=== PATIENT | female | born 1955 | race Caucasian/White ===

== ENCOUNTER → 2023-03-06 08:17 | Outpatient (BNVA) | payer MEDICARE, SELFPAY | PROVIDERS: PCP Internal Medicine; Visit Provider Internal Medicine Rheumatology | DX: M33.90 Dermatopolymyositis, unspecified, organ involvement unspecified (principal); Z79.899 Other long term (current) drug therapy | CPT/HCPCS: 36415; 82550; 85025; 85652; 86140; 99212 ==

== ENCOUNTER 2023-03-06 09:08 | Outpatient (REF) | payer MEDICARE, SELFPAY ==
[2023-03-06 11:01] LABS: MANUAL DIFF FLAG NO
[2023-03-06 11:08] LABS: Basophils Absolute Auto 0.1 X10*3/uL (0.0-0.2); Basophils Percent Auto 0.9 % (0-2); Eosinophils Absolute Auto 0.1 X10*3/uL (0.0-0.4); Eosinophils Percent Auto 1.6 % (0-4); Hematocrit 36.4 % (37.0-47.0); Hemoglobin 11.8 g/dl (12.0-16.0); Imm Gran Abs Auto 0.02 X10*3/uL (0.00-0.03); Imm Gran Pct Auto 0.3 % (0.0-0.4); Lymphocytes Absolute Auto 1.5 X10*3/uL (1.2-4.9); Lymphocytes Percent Auto 23.7 % (20-40); Mean Corpuscular HGB Conc 32.4 g/dl (31.0-35.0); Mean Corpuscular Hemoglobin 28.4 pg (27.0-33.0); Mean Corpuscular Volume 87.5 fL (80.0-98.0); Mean Platelet Volume 10.5 fL (9.4-12.3); Monocytes Absolute Auto 0.5 X10*3/uL (0.1-1.2); Monocytes Percent Auto 7.9 % (2-11); Neutrophils Absolute Auto 4.1 x10*3/uL (2.0-8.3); Neutrophils Percent Auto 65.6 % (45-73); Platelet Count 384 X10*3/uL (160-400); Red Blood Count 4.16 X10*6/uL (4.20-5.50); White Blood Count 6.3 X10*3/uL (4.8-10.8)
[2023-03-06 11:52] LABS: Erythrocyte Sedimentation Rate 27 MM/HR (0-20)
[2023-03-06 12:08] LABS: C Reactive Protein 0.16 mg/dL (< or = 0.50)
== END 2023-03-06 09:09 | disposition home or self-care (01) ==
LOC: HO.10HDL 09:08
PROVIDERS: Visit Provider Internal Medicine Rheumatology
DX: Z13.89 Encounter for screening for other disorder (principal)
CPT/HCPCS: 36415; 82550; 85025; 85652; 86140

== ENCOUNTER 2023-03-20 11:26 | Outpatient (REF) | payer MEDICARE, SELFPAY | END 2023-03-20 11:27 | disposition home or self-care (01) | LOC: HO.MDS 11:26 | PROVIDERS: Visit Provider Internal Medicine Rheumatology | DX: M33.90 Dermatopolymyositis, unspecified, organ involvement unspecified (principal) | CPT/HCPCS: 96365; 96366; J1569 ==

== ENCOUNTER 2023-03-21 11:36 | Outpatient (REF) | payer MEDICARE, SELFPAY | END 2023-03-21 11:37 | disposition home or self-care (01) | LOC: HO.MDS 11:36 | PROVIDERS: Visit Provider Internal Medicine Rheumatology | DX: M33.90 Dermatopolymyositis, unspecified, organ involvement unspecified (principal) | CPT/HCPCS: 96365; 96366; J1569 ==

== ENCOUNTER 2023-04-18 09:41 | Outpatient (REF) | payer MEDICARE, SELFPAY | END 2023-04-18 09:42 | disposition home or self-care (01) | LOC: HO.MDS 09:41 | PROVIDERS: Visit Provider Internal Medicine Rheumatology | DX: M33.90 Dermatopolymyositis, unspecified, organ involvement unspecified (principal) | CPT/HCPCS: 96365; 96366; J1569 ==

== ENCOUNTER 2023-04-19 09:40 | Outpatient (REF) | payer MEDICARE, SELFPAY | END 2023-04-19 09:41 | disposition home or self-care (01) | LOC: HO.MDS 09:40 | PROVIDERS: Visit Provider Internal Medicine Rheumatology | DX: M33.90 Dermatopolymyositis, unspecified, organ involvement unspecified (principal) | CPT/HCPCS: 96365; 96366; J1569 ==

== ENCOUNTER 2023-05-01 11:40 | Outpatient (AMB) | payer MEDICARE, SELFPAY ==
--- NOTE | 2023-05-01 11:42 | MHC.OFFVIS ---
Intake Vital Signs 05/01/23 11:43 Height 5 ft 5 in Weight 190 lb 4.143 oz BMI 31.7 BP 132/98 H Blood Pressure Location Rt brachial Position Sitting Intake Visit Reasons: DM - Confirmed Intake Note: Patient presents for follow up Allergies azathioprine Adverse Reaction (Intermediate, Verified 05/01/23 11:45) Unknown ciprofloxacin [From Cipro HC] Adverse Reaction (Intermediate, Verified 05/01/23 11:45) N/V doxycycline Adverse Reaction (Intermediate, Verified 05/01/23 11:45) Gastrointestinal Upset hydrocortisone [From Cipro HC] Adverse Reaction (Intermediate, Verified 05/01/23 11:45) N/V mycophenolate mofetil [From CellCept] Adverse Reaction (Intermediate, Verified 05/01/23 11:45) Rash Penicillins Adverse Reaction (Intermediate, Verified 05/01/23 11:45) Rash sulfamethoxazole [From Bactrim] Adverse Reaction (Verified 05/01/23 11:45) N/V trimethoprim [From Bactrim] Adverse Reaction (Verified 05/01/23 11:45) N/V HPI HPI Comments History of Present Illness Details The patient returns for 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 She remains on IVIG receiving 50 g on 2 consecutive days once every 4 weeks. She reports no change in her muscle strength. She still has some difficulty getting up out of a chair but other activities seem to be without problem. She has had no recent skin rash. She does feel somewhat tired the week after getting the infusions. She said they did have some difficulty obtaining IV access at her last visit. 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 Obesity Primary open angle glaucoma of both eyes Varicose veins of both lower extremities Surgical History H/O colonoscopy H/O nasal septoplasty H/O tubal ligation H/O: hysterectomy History of partial surgical removal of colon History of tonsillectomy History of total knee replacement (TKR) Family History Mother Arthritis Hypertension Elevated cholesterol Brother Elevated cholesterol Myelofibrosis Diabetes Father Stomach cancer Maternal Aunt Gynecologic cancer Social History Household Members: Spouse and Children Alcohol intake: current Alcohol intake frequency: holidays/special occasions only Patient Tobacco Use Status: Former Tobacco user Current occupational status: employed 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 Negative for appetite change, weight change, fever, chills, malaise Eyes Details: Some dull headache after the IVIG. Negative for vision change, dry eyes and dizziness Card Details: Negative chest pain, edema and syncope Resp Details: Negative for SOB, cough and wheezing Skin/Breast Details: Negative for itching, rash, hives, Raynaud's symptoms, sun sensitivity, and skin cancer Troy/Lymph Details: Negative for excessive bruising or bleeding. Physical Exam Vital Signs: Last Vital Signs BP 132/98 H 05/01/23 11:43 BMI result Body Mass Index 31.7 APPEARANCE: Patient in no acute distress EYES no redness, pupils equal and reactive to light, eyelids normal EXTREMITIES: No edema, no calf tenderness, normal peripheral pulses. NEURO:? Oriented and alert x3.? She has trouble rising from a chair without assisting herself with her upper extremities.? However there is some anterior knee pain with this motion.? Reflexes symmetric.? Gait normal. SKIN:? No inflammatory or neoplastic lesions.? Normal color and turgor JOINT EXAM: Well-healed anterior scars in her knees.? No surrounding area of tenderness or redness or swelling in the knees.? Other joints have normal pain-free range of motion without tenderness or swelling.? ? Results Reviewed Results Reviewed: Laboratory Tests 03/06/23 03/06/23 03/06/23 09:12 09:12 09:12 WBC 6.3 Hgb 11.8 L ESR 27 H Total Creatine Kinase 112 C-Reactive Protein 0.16 Assessment & Plan Assessment & Plan (1) shelter current use of immunosuppressive drug: Code(s): Z79.899 - Other jail (current) drug therapy (2) History of bilateral knee replacement: Code(s): Z96.653 - Presence of artificial knee joint, bilateral (3) Dermatomyositis: Comment: Skin rash onset 09/2016; muscles weak 09/2017. HATTIE positive; anti-GA-2 positive. EMG positive for myopathy Negative anti DNA, anti-TONY, Sjogren antibodies Prednisone started 02/14; azathioprine added in 03/17 Azathioprine held due to oral ulcers 04/16 CPK normalized, 04/16 Mycophenolate not tolerated 08/17 Methotrexate started 09/16 -partial response, still requiring ~ 15-20 mg prednisone. IVI/19, 04/17, 05/18, 06/18:07/18, 50 gm daily X 3) 08/18, 09/17(50 gm daily X 2) and every 30 days Methotrexate held due to LFT elevations - 02/16 - monthly IVIG continued December 2020: IVIG held because she had an abdominal abscess. Subsequent rise in CPK to greater than 9000 and return of weakness. January 2021: IVIG restarted as well as prednisone Code(s): M33.90 - Dermatopolymyositis, unspecified, organ involvement unspecified Plan So the patient seems to be doing okay. There is no skin rash. She still has some weakness in quadriceps extension but some of that is related to previous knee OA and atrophy. I think she should be encouraged to do quadriceps exercises; they were reviewed here in the office. The CPKs remain normal. She has some fatigue and headache after the IVIG. At this point I think it be reasonable that after the next infusion in a few weeks we increase the time in became infusions to 5 weeks. I will see her back after the infusion in May. Coding Level of Care Code Est Pt Level 3 (16993) Diagnoses shelter current use of immunosuppressive drug Z79.899 History of bilateral knee replacement Z96.653 Dermatomyositis M33.90
[2023-05-01 11:43] VITALS: BP 132/98; BMI 31.7
== END 2023-05-01 12:04 | disposition home or self-care (01) ==
PROVIDERS: PCP Internal Medicine; Visit Provider Internal Medicine Rheumatology
DX: Z79.899 Other long term (current) drug therapy (principal); Z96.653 Presence of artificial knee joint, bilateral; M33.90 Dermatopolymyositis, unspecified, organ involvement unspecified
CPT/HCPCS: 99213

== ENCOUNTER → 2023-05-01 11:40 | Outpatient (BNVA) | payer MEDICARE, SELFPAY | PROVIDERS: PCP Internal Medicine; Visit Provider Internal Medicine Rheumatology | DX: M33.90 Dermatopolymyositis, unspecified, organ involvement unspecified (principal); Z96.653 Presence of artificial knee joint, bilateral; Z79.899 Other long term (current) drug therapy | CPT/HCPCS: 99212 ==

== ENCOUNTER 2023-05-20 08:08 | Outpatient (REF) | payer MEDICARE, SELFPAY | END 2023-05-20 08:09 | disposition home or self-care (01) | LOC: HO.MDS 08:08 | PROVIDERS: Visit Provider Internal Medicine Rheumatology | DX: M33.90 Dermatopolymyositis, unspecified, organ involvement unspecified (principal) | CPT/HCPCS: 96365; 96366; J1569 ==

== ENCOUNTER 2023-05-22 09:10 | Outpatient (REF) | payer MEDICARE, SELFPAY | END 2023-05-22 09:11 | disposition home or self-care (01) | LOC: HO.MDS 09:10 | PROVIDERS: Visit Provider Internal Medicine Rheumatology | DX: M33.90 Dermatopolymyositis, unspecified, organ involvement unspecified (principal) | CPT/HCPCS: 96365; 96366; 96375; J1569 ==

== ENCOUNTER 2023-06-19 07:47 | Outpatient (REF) | payer MEDICARE, SELFPAY | END 2023-06-19 07:48 | disposition home or self-care (01) | LOC: HO.MDS 07:47 | PROVIDERS: Visit Provider Internal Medicine Rheumatology | DX: M33.90 Dermatopolymyositis, unspecified, organ involvement unspecified (principal) | CPT/HCPCS: 96365; 96366; J1569 ==

== ENCOUNTER 2023-06-20 07:51 | Outpatient (REF) | payer MEDICARE, SELFPAY | END 2023-06-20 07:52 | disposition home or self-care (01) | LOC: HO.MDS 07:51 | PROVIDERS: Visit Provider Internal Medicine Rheumatology | DX: M33.90 Dermatopolymyositis, unspecified, organ involvement unspecified (principal) | CPT/HCPCS: 96365; 96366; J1569 ==

== ENCOUNTER 2023-07-17 09:52 | Outpatient (AMB) | payer MEDICARE, SELFPAY ==
--- NOTE | 2023-07-17 10:17 | MHC.OFFVIS ---
Intake Vital Signs 07/17/23 10:18 Height 5 ft 5 in Weight 191 lb 5.78 oz BMI 31.8 BP 110/82 Blood Pressure Location Lt brachial Position Sitting Pulse 71 Pulse Source Pulse Oximeter Temp 97.5 F Temp Source Skin Pulse Oximetry (%) 97 Oxygen Delivery Method Room Air Intake Visit Reasons: DM Intake Note: Patient presents today to follow up on Dermatopolymyiositis. Reports excessive bleeding after tooth extraction about 3 weeks ago. 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 Accompanied by: Self / Same As Patient Allergies azathioprine Adverse Reaction (Intermediate, Verified 07/17/23 10:18) Unknown ciprofloxacin [From Cipro HC] Adverse Reaction (Intermediate, Verified 07/17/23 10:18) N/V doxycycline Adverse Reaction (Intermediate, Verified 07/17/23 10:18) Gastrointestinal Upset hydrocortisone [From Cipro HC] Adverse Reaction (Intermediate, Verified 07/17/23 10:18) N/V mycophenolate mofetil [From CellCept] Adverse Reaction (Intermediate, Verified 07/17/23 10:18) Rash Penicillins Adverse Reaction (Intermediate, Verified 07/17/23 10:18) Rash sulfamethoxazole [From Bactrim] Adverse Reaction (Verified 07/17/23 10:18) N/V trimethoprim [From Bactrim] Adverse Reaction (Verified 07/17/23 10:18) N/V Medication List - Last Reconciled 07/17/23 by Shaan Oakley MD acetaminophen (Tylenol Extra Strength) 500 mg PO Q6H PRN acetaminophen 650 mg (2 x 325 mg) PO ONCE PRN atenolol 75 mg PO DAILY clindamycin HCl 150 mg PO QID diphenhydramine HCl (Allergy Relief (diphenhydramine)) 50 mg (2 x 25 mg) PO ONCE PRN fluoxetine 10 mg PO DAILY hydrochlorothiazide 25 mg PO DAILY immun glob G(IgG)-gly-IgA ov50 10 % (Gammagard Liquid) Give 40 g IV daily x 2 and then repeat every 4 weeks. 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 She remains on IVIG, receiving 40 g on 2 consecutive days about every 4 weeks. The last visit was complicated a bit by some elevated blood pressures. She also thinks that the infusion might have leaked a bit and she did not all get in her. In any case muscle strength has been stable. She still has some weakness getting up from a chair. There is knee pain where she had her knee replacements. There has been no skin rash, shortness of breath or dysphagia. She does not seem to have any upper extremity weakness. 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 The patient notices a pigmented spot on dorsum of her right hand. This seems to be growing in size. [facility] Medical History Allergic rhinitis Anxiety Depression Dermatomyositis Diverticulitis DJD (degenerative joint disease) GERD (gastroesophageal reflux disease) Hyperlipidemia Hypertension longterm current use of immunosuppressive drug Obesity Primary open angle glaucoma of both eyes Varicose veins of both lower extremities Surgical History History of total knee replacement (TKR) H/O nasal septoplasty History of partial surgical removal of colon H/O tubal ligation H/O: hysterectomy History of tonsillectomy H/O colonoscopy Family History Mother Arthritis Hypertension Elevated cholesterol Brother Elevated cholesterol Myelofibrosis Diabetes Father Stomach cancer Maternal Aunt Gynecologic cancer Social History Household Members: Spouse and Children Alcohol intake: current Alcohol intake frequency: holidays/special occasions only Patient Tobacco Use Status: Former Tobacco user Current occupational status: employed 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 Card Details: Negative chest pain, edema and syncope Resp Details: Negative for SOB, cough and wheezing GI Details: Negative indigestion/heartburn, nausea, abdominal pain, bowel changes, diarrhea, constipation and bloody stool. Skin/Breast Details: Negative for itching, rash, hives, Raynaud's symptoms, sun sensitivity, and skin cancer Endo Details: Negative for polyuria and polydypsia Troy/Lymph Details: Negative for excessive bruising or bleeding. Physical Exam Vital Signs: Last Vital Signs Temp 97.5 F 07/17/23 10:18 Pulse 71 07/17/23 10:18 BP 110/82 07/17/23 10:18 Pulse Ox 97 07/17/23 10:18 Oxygen Delivery Method Room Air 07/17/23 10:18 BMI result Body Mass Index 31.8 APPEARANCE: Patient in no acute distress EYES no redness, pupils equal and reactive to light, eyelids normal THROAT: Oral mucosa moist, no ulcerations NECK: No thyromegaly or masses, no adenopathy, trachea midline. HEART: Regulrar rhythm, S1-S2 heard, no murmurs, rubs or gallops. LUNG: Clear to percussion and auscultation ABD: Normal bowel sounds, no organomegaly, masses or tenderness. EXTREMITIES: No edema, no calf tenderness, normal peripheral pulses. NEURO:? Oriented and alert x3.? She has trouble rising from a chair without assisting herself with her upper extremities.? However there is some anterior knee pain with this motion.? Reflexes symmetric.? Gait normal. SKIN:? No inflammatory lesions.? The lesion in question looks like a nevus but has a later she anterior. It is not tender. It is about 6 mm in diameter JOINT EXAM: Well-healed anterior scars in her knees.? No surrounding area of tenderness or redness or swelling in the knees.? Other joints have normal pain-free range of motion without tenderness or swelling.? ? 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 HATTIE positive; anti-FL-2 positive. EMG positive for myopathy Negative anti DNA, anti-TONY, Sjogren antibodies Prednisone started 02/14; azathioprine added in 03/17 Azathioprine held due to oral ulcers 04/16 CPK normalized, 04/16 Mycophenolate not tolerated 08/17 Methotrexate started 09/16 -partial response, still requiring ~ 15-20 mg prednisone. IVI/19, 04/17, 05/18, 06/18:10, 50 gm daily X 3) 08/18, 09/17(50 gm daily X 2) and every 30 days Methotrexate held due to LFT elevations - 02/16 - monthly IVIG continued December 2020: IVIG held because she had an abdominal abscess. Subsequent rise in CPK to greater than 9000 and return of weakness. January 2021: IVIG restarted as well as prednisone Code(s): M33.90 - Dermatopolymyositis, unspecified, organ involvement unspecified Plan Dermatomyositis with no current skin rash and the muscle strength seems stable. She still has some weakness in the quadriceps, this perhaps is related to her previous knee replacement surgeries. 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 The CPK seems stable so we will see if we can increase the interval between infusions to 5 weeks at this point. We will stay with the 40 g each day for 2 days. The lesion on the hand looks like possibly a nevus but has some atypical features so we will ask for Dermatology evaluation. Follow-up in 3 months. Orders: Orders Creatine Kinase Total Today M33.90 - Dermatopolymyositis, unspecified, organ involvement unspecified C Reactive Protein Today M33.90 - Dermatopolymyositis, unspecified, organ involvement unspecified Referrals Dermatology Referral D22.9 - Melanocytic nevi, unspecified Medications: Changed From immun glob G(IgG)-gly-IgA ov50 10 % (Gammagard Liquid) Give 40 g IV daily x 2 and then repeat every 4 weeks. 2 days 80 grams 4RF M33.90 - Dermatopolymyositis, unspecified, organ involvement unspecified To immun glob G(IgG)-gly-IgA ov50 10 % (Gammagard Liquid) Give 40 g IV daily x 2 and then repeat every 5 weeks. 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
[2023-07-17 10:18] VITALS: BP 110/82; PULSE 71; TEMP 36.4; O2SAT 97; BMI 31.8
== END 2023-07-17 10:42 | disposition home or self-care (01) ==
PROVIDERS: PCP Internal Medicine; Visit Provider Internal Medicine Rheumatology
DX: D22.9 Melanocytic nevi, unspecified (principal); Z79.899 Other long term (current) drug therapy; M33.90 Dermatopolymyositis, unspecified, organ involvement unspecified
CPT/HCPCS: 99213

== ENCOUNTER → 2023-07-17 09:52 | Outpatient (BNVA) | payer MEDICARE, SELFPAY | PROVIDERS: PCP Internal Medicine; Visit Provider Internal Medicine Rheumatology | DX: M33.90 Dermatopolymyositis, unspecified, organ involvement unspecified (principal); D22.9 Melanocytic nevi, unspecified; Z79.899 Other long term (current) drug therapy | CPT/HCPCS: 99212 ==

== ENCOUNTER 2023-07-18 09:50 | Outpatient (REF) | payer MEDICARE, SELFPAY ==
[2023-07-18 11:14] LABS: C Reactive Protein 0.13 mg/dL (< or = 0.50)
== END 2023-07-18 09:51 | disposition home or self-care (01) ==
LOC: HO.MDS 09:50
PROVIDERS: Visit Provider Internal Medicine Rheumatology
DX: M33.90 Dermatopolymyositis, unspecified, organ involvement unspecified (principal)
CPT/HCPCS: 36415; 82550; 86140; 96365; 96366; J1569

== ENCOUNTER 2023-07-19 08:51 | Outpatient (REF) | payer MEDICARE, SELFPAY | END 2023-07-19 08:52 | disposition home or self-care (01) | LOC: HO.MDS 08:51 | PROVIDERS: Visit Provider Internal Medicine Rheumatology | DX: M33.90 Dermatopolymyositis, unspecified, organ involvement unspecified (principal) | CPT/HCPCS: 96365; 96366; J1569 ==

== ENCOUNTER 2023-08-29 09:46 | Outpatient (REF) | payer MEDICARE, SELFPAY | END 2023-08-29 09:47 | disposition home or self-care (01) | LOC: HO.MDS 09:46 | PROVIDERS: Visit Provider Internal Medicine Rheumatology | DX: M33.90 Dermatopolymyositis, unspecified, organ involvement unspecified (principal) | CPT/HCPCS: 96365; 96366; J1569 ==

== ENCOUNTER 2023-08-30 09:47 | Outpatient (REF) | payer MEDICARE, SELFPAY | END 2023-08-30 09:48 | disposition home or self-care (01) | LOC: HO.MDS 09:47 | PROVIDERS: Visit Provider Internal Medicine Rheumatology | DX: M33.90 Dermatopolymyositis, unspecified, organ involvement unspecified (principal) | CPT/HCPCS: 96365; 96366; 96375; J1569 ==

== ENCOUNTER 2023-09-25 10:46 | Outpatient (AMB) | payer MEDICARE, SELFPAY ==
[2023-09-25 10:54] VITALS: BP 122/74; PULSE 81; TEMP 36.7; O2SAT 97; BMI 32.0
--- NOTE | 2023-09-25 10:54 | A.OFFVIS_ITS ---
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 Accompanied by: Self / Same As Patient Allergies azathioprine Adverse Reaction (Intermediate, Verified 09/25/23 10:54) Unknown ciprofloxacin [From Cipro HC] Adverse Reaction (Intermediate, Verified 09/25/23 10:54) N/V doxycycline Adverse Reaction (Intermediate, Verified 09/25/23 10:54) Gastrointestinal Upset hydrocortisone [From Cipro HC] Adverse Reaction (Intermediate, Verified 09/25/23 10:54) N/V mycophenolate mofetil [From CellCept] Adverse Reaction (Intermediate, Verified 09/25/23 10:54) Rash Penicillins Adverse Reaction (Intermediate, Verified 09/25/23 10:54) Rash sulfamethoxazole [From Bactrim] Adverse Reaction (Verified 09/25/23 10:54) N/V trimethoprim [From Bactrim] Adverse Reaction (Verified 09/25/23 10:54) N/V Medication List - Last Reconciled 09/25/23 by Berna Hooks RN acetaminophen (Tylenol Extra Strength) 500 mg PO Q6H PRN acetaminophen 650 mg (2 x 325 mg) PO ONCE PRN atenolol 75 mg PO DAILY clindamycin HCl 150 mg PO QID diphenhydramine HCl (Allergy Relief (diphenhydramine)) 50 mg (2 x 25 mg) PO ONCE PRN fluoxetine 10 mg PO DAILY hydrochlorothiazide 25 mg PO DAILY immun glob G(IgG)-gly-IgA ov50 10 % (Gammagard Liquid) Give 40 g IV daily x 2 and then repeat every 5 weeks. 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 She says she feels stable although still has difficulty rising from a chair. We have increased the interval between gammaglobulin doses out to 5 weeks. She has noted no recent skin rashes. She had no infusion reaction or side effects with the previous infusion of IVIG. I had ordered furosemide to follow those doses but she did not think she needed it because blood pressure was fine. She had no subsequent headache. 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 She is on her feet the most of the time and she is there for 5 hours. [facility] Medical History Allergic rhinitis GERD (gastroesophageal reflux disease) Hypertension Hyperlipidemia Varicose veins of both lower extremities DJD (degenerative joint disease) Anxiety Depression Dermatomyositis Primary open angle glaucoma of both eyes Obesity senior living current use of immunosuppressive drug Diverticulitis Surgical History History of total knee replacement (TKR) H/O nasal septoplasty History of partial surgical removal of colon H/O tubal ligation H/O: hysterectomy History of tonsillectomy H/O colonoscopy Family History Mother Arthritis Hypertension Elevated cholesterol Brother Elevated cholesterol Myelofibrosis Diabetes Father Stomach cancer Maternal Aunt Gynecologic cancer Social History Household Members: Spouse and Children Alcohol intake: current Alcohol intake frequency: holidays/special occasions only Patient Tobacco Use Status: Former Tobacco user Current occupational status: employed 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 Card Details: Negative chest pain, edema and syncope Resp Details: Negative for SOB, cough and wheezing GI Details: Negative indigestion/heartburn, nausea, abdominal pain, bowel changes, diarrhea, constipation and bloody stool. Skin/Breast Details: Negative for itching, rash, hives, Raynaud's symptoms, sun sensitivity, and skin cancer Neuro Details: Still some weakness in the legs when she stands up from a chair. There is also some accompanying knee pain however. Negative for epilepsy, palsy, stroke, c hanges in speech, tingling Endo Details: Negative for polyuria and polydypsia Troy/Lymph Details: Negative for excessive bruising or bleeding. Physical Exam Vital Signs: Last Vital Signs Temp 98.1 F 09/25/23 10:54 Pulse 81 09/25/23 10:54 BP 122/74 09/25/23 10:54 Pulse Ox 97 09/25/23 10:54 Oxygen Delivery Method Room Air 09/25/23 10:54 BMI result Body Mass Index 32.0 APPEARANCE: Patient in no acute distress EYES no redness, pupils equal and reactive to light, eyelids normal THROAT: Oral mucosa moist, no ulcerations NECK: No thyromegaly or masses, no adenopathy, trachea midline. HEART: Regulrar rhythm, S1-S2 heard, no murmurs, rubs or gallops. LUNG: Clear to percussion and auscultation ABD: Normal bowel sounds, no organomegaly, masses or tenderness. EXTREMITIES: No edema, no calf tenderness, normal peripheral pulses. NEURO:? Oriented and alert x3.? She has trouble rising from a chair without assisting herself with her upper extremities.? However there is some anterior knee pain with this motion.? Reflexes symmetric.? Gait normal. SKIN:? No inflammatory lesions.? The lesion in question looks like a nevus but has a later she anterior. It is not tender. It is about 6 mm in diameter JOINT EXAM: Well-healed anterior scars in her knees.? No surrounding area of tenderness or redness or swelling in the knees.? Other joints have normal pain-free range of motion without tenderness or swelling.? ? 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 HATTIE positive; anti-NV-2 positive. EMG positive for myopathy Negative anti DNA, anti-TONY, Sjogren antibodies Prednisone started 02/14; azathioprine added in 03/17 Azathioprine held due to oral ulcers 04/16 CPK normalized, 04/16 Mycophenolate not tolerated 08/17 Methotrexate started 09/16 -partial response, still requiring ~ 15-20 mg prednisone. IVI/19, 04/17, 05/18, 06/18:07/18, 50 gm daily X 3) 08/18, 09/17(50 gm daily X 2) and every 30 days Methotrexate held due to LFT elevations - 02/16 - monthly IVIG continued December 2020: IVIG held because she had an abdominal abscess. Subsequent rise in CPK to greater than 9000 and return of weakness. January 2021: IVIG restarted as well as prednisone Code(s): M33.90 - Dermatopolymyositis, unspecified, organ involvement unspecified Plan Dermatomyositis with continued absence of the skin rash. The muscle strength in the arms I think has returned to baseline but she still has some leg strength weakness. CPK levels remain flat. The leg weakness could be a secondary effect of having had bilateral knee replacements done shortly before she developed the dermatomyositis. I did go over with her some wall squats that she could do safely I believe to help strengthen the legs. She has already been at physical therapy. We will continue with the IVIG at a 5 week intervals at this point. I will discontinue the Lasix order as she does not seem to need it following the infusions. If rash remains absent and her muscle strength remains stable then further tapering of the dose or increasing the interval between the IVIG could be considered. I will check a CRP, CPK and CBC with her next treatment. A follow-up in 2 months is recommended. A Orders: Orders C Reactive Protein Today M33.90 - Dermatopolymyositis, unspecified, organ involvement unspecified Complete Blood Count Auto Diff Today M33.90 - Dermatopolymyositis, unspecified, organ involvement unspecified Creatine Kinase Total Today M33.90 - Dermatopolymyositis, unspecified, organ involvement unspecified Coding Level of Care Code Est Pt Level 3 (59923) Diagnoses History of bilateral knee replacement Z96.653 senior living current use of immunosuppressive drug Z79.899 Dermatomyositis M33.90
== END 2023-09-25 11:23 | disposition home or self-care (01) ==
PROVIDERS: PCP Internal Medicine; Visit Provider Internal Medicine Rheumatology
DX: Z96.653 Presence of artificial knee joint, bilateral (principal); Z79.899 Other long term (current) drug therapy; M33.90 Dermatopolymyositis, unspecified, organ involvement unspecified
CPT/HCPCS: 99213

== ENCOUNTER → 2023-09-25 10:46 | Outpatient (BNVA) | payer MEDICARE, SELFPAY | PROVIDERS: PCP Internal Medicine; Visit Provider Internal Medicine Rheumatology | DX: M33.90 Dermatopolymyositis, unspecified, organ involvement unspecified (principal); Z96.653 Presence of artificial knee joint, bilateral; Z79.899 Other long term (current) drug therapy | CPT/HCPCS: 36415; 82550; 85025; 86140; 99212 ==

== ENCOUNTER 2023-09-25 11:30 | Outpatient (REF) | payer MEDICARE, SELFPAY ==
[2023-09-25 13:15] LABS: MANUAL DIFF FLAG NO
[2023-09-25 13:42] LABS: Basophils Absolute Auto 0.1 X10*3/uL (0.0-0.2); Basophils Percent Auto 0.8 % (0-2); Eosinophils Absolute Auto 0.1 X10*3/uL (0.0-0.4); Hematocrit 36.1 % (37.0-47.0); Hemoglobin 12.1 g/dl (12.0-16.0); Imm Gran Abs Auto 0.02 X10*3/uL (0.00-0.03); Imm Gran Pct Auto 0.3 % (0.0-0.4); Lymphocytes Absolute Auto 1.7 X10*3/uL (1.2-4.9); Lymphocytes Percent Auto 25.7 % (20-40); Mean Corpuscular HGB Conc 33.5 g/dl (31.0-35.0); Mean Corpuscular Hemoglobin 28.4 pg (27.0-33.0); Mean Corpuscular Volume 84.7 fL (80.0-98.0); Mean Platelet Volume 10.2 fL (9.4-12.3); Monocytes Absolute Auto 0.5 X10*3/uL (0.1-1.2); Neutrophils Absolute Auto 4.2 x10*3/uL (2.0-8.3); Neutrophils Percent Auto 64.2 % (45-73); Platelet Count 420 X10*3/uL (160-400); Red Blood Count 4.26 X10*6/uL (4.20-5.50); Red Cell Distribution Width 15.2 % (11.0-16.0); White Blood Count 6.6 X10*3/uL (4.8-10.8)
== END 2023-09-25 11:31 | disposition home or self-care (01) ==
LOC: HO.10HDL 11:30
PROVIDERS: Visit Provider Internal Medicine Rheumatology
DX: Z13.89 Encounter for screening for other disorder (principal)
CPT/HCPCS: 36415; 82550; 85025; 86140

== ENCOUNTER 2023-10-03 08:49 | Outpatient (REF) | payer MEDICARE, SELFPAY | END 2023-10-03 08:50 | disposition home or self-care (01) | LOC: HO.MDS 08:49 | PROVIDERS: Visit Provider Student in an Organized Health Care Education/Training Program | DX: M33.90 Dermatopolymyositis, unspecified, organ involvement unspecified (principal) | CPT/HCPCS: 96365; 96366; J1569 ==

== ENCOUNTER 2023-10-04 08:40 | Outpatient (REF) | payer MEDICARE, SELFPAY | END 2023-10-04 08:41 | disposition home or self-care (01) | LOC: HO.MDS 08:40 | PROVIDERS: Visit Provider Student in an Organized Health Care Education/Training Program | DX: M33.90 Dermatopolymyositis, unspecified, organ involvement unspecified (principal) | CPT/HCPCS: 96365; 96366; J1569 ==

== ENCOUNTER 2023-11-14 07:48 | Outpatient (REF) | payer MEDICARE, SELFPAY | END 2023-11-14 07:49 | disposition home or self-care (01) | LOC: HO.MDS 07:48 | PROVIDERS: Visit Provider Student in an Organized Health Care Education/Training Program | DX: M33.90 Dermatopolymyositis, unspecified, organ involvement unspecified (principal) | CPT/HCPCS: 96365; 96366; J1569 ==

== ENCOUNTER 2023-11-15 09:42 | Outpatient (REF) | payer MEDICARE, SELFPAY | END 2023-11-15 09:43 | disposition home or self-care (01) | LOC: HO.MDS 09:42 | PROVIDERS: Visit Provider Student in an Organized Health Care Education/Training Program | DX: M33.90 Dermatopolymyositis, unspecified, organ involvement unspecified (principal) | CPT/HCPCS: 96365; 96366; J1569 ==

== ENCOUNTER 2023-12-04 08:45 | Outpatient (AMB) | payer MEDICARE, SELFPAY ==
--- NOTE | 2023-12-04 08:52 | MHC.OFFVIS ---
Intake Vital Signs 12/04/23 08:55 Height 5 ft 5 in Weight 197 lb 8.547 oz BMI 32.9 BP 132/70 Blood Pressure Location Lt brachial Position Sitting Pulse 77 Pulse Source Pulse Oximeter Pulse Oximetry (%) 97 Intake Visit Reasons: DM Intake Note: Patient last seen 09/25/23 presents today for follow up and test results. She was referred to [facility], pt cancelled appt, they have no records available. She reports she had bone density with PCP and revealed osteopenia. She is now taking calcium daily. 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 Accompanied by: Self / Same As Patient Allergies azathioprine Adverse Reaction (Intermediate, Verified 12/04/23 08:57) Unknown ciprofloxacin [From Cipro HC] Adverse Reaction (Intermediate, Verified 12/04/23 08:57) N/V doxycycline Adverse Reaction (Intermediate, Verified 12/04/23 08:57) Gastrointestinal Upset hydrocortisone [From Cipro HC] Adverse Reaction (Intermediate, Verified 12/04/23 08:57) N/V mycophenolate mofetil [From CellCept] Adverse Reaction (Intermediate, Verified 12/04/23 08:57) Rash Penicillins Adverse Reaction (Intermediate, Verified 12/04/23 08:57) Rash sulfamethoxazole [From Bactrim] Adverse Reaction (Verified 12/04/23 08:57) N/V trimethoprim [From Bactrim] Adverse Reaction (Verified 12/04/23 08:57) N/V Medication List - Last Reconciled 12/04/23 by Filippo Leigh MD acetaminophen (Tylenol Extra Strength) 500 mg PO Q6H PRN acetaminophen 650 mg (2 x 325 mg) PO ONCE PRN atenolol 75 mg PO DAILY calcium carbonate (Calcium) 1,200 mg PO DAILY clindamycin HCl 150 mg PO QID diphenhydramine HCl (Allergy Relief (diphenhydramine)) 50 mg (2 x 25 mg) PO ONCE PRN hydrochlorothiazide 25 mg PO DAILY immun glob G(IgG)-gly-IgA ov50 10 % (Gammagard Liquid) Give 40 g IV daily x 2 and then repeat every 5 weeks. 2 days naproxen sodium (Aleve) 220 mg PO BID PRN omeprazole 20 mg PO DAILY rosuvastatin 10 mg PO BEDTIME HPI HPI Comments History of Present Illness Details 68-year-old female with dermatomyositis returns for follow-up. She states that she is doing about the same overall. No change in her muscle weakness. She continues to have some difficulty getting up from low seat as well as managing stairs. She has good upper extremity strength. Recently she has been having some stiffness and swelling of her left hand worse at night and in the morning. She gets intermittent triggering of her left ring finger. But it has not bothering her today. She has not had any skin rashes. She states that she has been on omeprazole for many years for acid reflux, she does not recall whether she had an endoscopy. Recently she has been having some GI upset, bloating and feels that her stomach is hard. She recently had a bone density scan which showed osteopenia. She wonders whether it is related to omeprazole she was started on calcium supplementation. She also states that she takes vitamin-D but she does not know the dose Most recent history by Dr. Oakley 08/2023: Patient returns for 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 She says she feels stable although still has difficulty rising from a chair. We have increased the interval between gammaglobulin doses out to 5 weeks. She has noted no recent skin rashes. She had no infusion reaction or side effects with the previous infusion of IVIG. I had ordered furosemide to follow those doses but she did not think she needed it because blood pressure was fine. She had no subsequent headache. 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 She is on her feet the most of the time and she is there for 5 hours. 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 Diverticulitis Surgical History History of total knee replacement (TKR) H/O nasal septoplasty History of partial surgical removal of colon H/O tubal ligation H/O: hysterectomy History of tonsillectomy H/O colonoscopy Family History Mother Arthritis Hypertension Elevated cholesterol Brother Elevated cholesterol Myelofibrosis Diabetes Father Stomach cancer Maternal Aunt Gynecologic cancer Social History Household Members: Spouse and Children Alcohol intake: current Alcohol intake frequency: holidays/special occasions only Patient Tobacco Use Status: Former Tobacco user Current occupational status: employed 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 Review of Systems Const Reports weakness Resp Reports no additional complaints GI Reports bloating Musc Reports joint swelling, Reports muscle weakness and Reports stiffness Skin/Breast Denies rash Neuro Reports weakness Physical Exam Vital Signs: Last Vital Signs Pulse 77 12/04/23 08:55 BP 132/70 12/04/23 08:55 Pulse Ox 97 12/04/23 08:55 BMI result Body Mass Index 32.9 Const General: cooperative, healthy appearing and comfortable Nutritional Appearance: obese Orientation/consciousness: patient oriented x3 Limitations: no limitations HEENT Head: Yes normocephalic and Yes atraumatic Mouth: moist mucous membranes Resp Effort & Inspection: normal respiratory effort and able to speak in complete sentences Auscultation: clear to auscultation bilaterally Cardio Rate: regular rate Rhythm: regular rhythm GI Palpation (GI): Soft to palpation Skin General skin exam: no rashes or lesions noted Neuro General: patient oriented x3 Extrem Other: Mild osteoarthritic changes of both hands with no active synovitis Mild stiffness of left index PIP and minimal tenderness Proximal muscle strength 5/5 both upper extremities Patient having difficulty standing up without assistance with her upper extremities. Hip flexors 5-/5 bilaterally Nailfold capillaroscopy shows dilated loops and parallel hemorrhages Results Reviewed Results Reviewed: ? BONE DENSITY 08/2023 ? Lumbar Spine T-score is +0.5 (SD relative to 20-29 y/o adult) Z-score is +2.3 (SD relative to age matched peers) This is normal by criteria defined by the WHO. ? Left Hip T-score is -1.2 Z-score is +0.4 This is consistent with osteopenia by criteria defined by the WHO. ? Comparison exam(s): significant decrease in bone density of lumbar spine when compared to most recent bone density examination Confidence level is +/-95%. ? ? Impression: ? Based on the World Health Organization criteria, Dana Mcmahon should be classified as having osteopenia. This patient has a 13% risk of major osteoporotic fracture and a 1.3% risk of hip fracture over the next 10 years. (World Health Organization Fracture Risk Assessment) ? Assessment & Plan Assessment & Plan (1) Dermatomyositis: Comment: onset 09/2016; prox muscles weak, skin rashes, abnormal nailfold, 09/2017. HATTIE positive; anti-[place]-2 positive. EMG positive for myopathy Negative anti DNA, anti-TONY, Sjogren antibodies Prednisone started 02/14; azathioprine added in 03/17 Azathioprine held due to oral ulcers 04/16 CPK normalized, 04/16 MMF not tolerated 08/17 MTX started 09/16 -partial response, still requiring ~ 15-20 mg prednisone. IVI/19, 04/17, 05/18, 06/18:07/18, 50 gm daily X 3) 08/18, 09/17(50 gm daily X 2) and every 30 days MTX held due to LFT elevations - 02/16 - monthly IVIG continued December 2020: IVIG held because she had an abdominal abscess. Subsequent rise in CPK to greater than 9000 and return of weakness. January 2021: IVIG restarted as well as prednisone IVIG 40 gm X2 2 days Q4 WEEKS, spaced out to 40 gmX2 days Q5 weeks Code(s): M33.90 - Dermatopolymyositis, unspecified, organ involvement unspecified Plan: 68-year-old female with dermatomyositis returns for follow-up. This is her 1st visit with me, she used to follow-up regularly with Dr. Oakley. Patient is doing fairly well overall. Upper extremity strength is normal but she continues to have some bilateral lower extremity weakness. She has done PT in the past. Her improvement seems to have plateaued. There is no return of skin rashes. Her CPK has remained flat so I believe her disease is well controlled on current management. Continue with IVIG 40 g x2 days Q5 weeks Labs before next visit in 3 months (2) Osteopenia: Comment: DEXA 08/2023 left hip T-score -1.2 Code(s): M85.80 - Other specified disorders of bone density and structure, unspecified site Qualifiers: Osteopenia location: hip Laterality: left Qualified Code(s): M85.852 - Other specified disorders of bone density and structure, left thigh Plan: Mild osteopenia. FRAX score low, does not qualify for osteoporosis treatment. Discussed osteopenia. Patient worried about side effects of omeprazole. Discussed with patient, multiple risk factors for osteoporosis including age, exposure to prednisone, genetic risks as well as omeprazole. In her case, I believe her main risk of osteopenia is likely her age as well as exposure to prolonged courses of steroids. I do not see a need to abruptly discontinue omeprazole Discussed management of osteopenia. Patient recently started calcium supplementation. She also takes vitamin-D but does not know the exact dose. Will check vitamin-D levels before next visit and supplement as needed. Discussed weight-bearing exercises. As mentioned above I do not see a need to abruptly discontinue omeprazole. Omeprazole can be continued if needed. However I advised patient to establish care with Gastroenterology to evaluate her history of GERD as well as her new complaints of bloating and pain (3) Osteoarthritis of hands, bilateral: Code(s): M19.041 - Primary osteoarthritis, right hand; M19.042 - Primary osteoarthritis, left hand Qualifiers: Osteoarthritis type: primary Qualified Code(s): M19.041 - Primary osteoarthritis, right hand; M19.042 - Primary osteoarthritis, left hand Plan: More prominent affecting the left index finger with some stiffness. Symptoms are mild. Will monitor Plan I spent 47 minutes reviewing patient's chart, evaluating patient, ordering diagnostic workup, counseling patient and documenting in the chart Orders: Orders Complete Blood Count Auto Diff 3 Months M33.90 - Dermatopolymyositis, unspecified, organ involvement unspecified C Reactive Protein 3 Months M33.90 - Dermatopolymyositis, unspecified, organ involvement unspecified Erythrocyte Sedimentation Rate 3 Months M33.90 - Dermatopolymyositis, unspecified, organ involvement unspecified Creatine Kinase Total 3 Months M33.90 - Dermatopolymyositis, unspecified, organ involvement unspecified Comprehensive Met. Panel 3 Months M33.90 - Dermatopolymyositis, unspecified, organ involvement unspecified Vitamin D 25-OH (D2 and D3) 3 Months Z13.21 - Encounter for screening for nutritional disorder Coding Level of Care Code Est Pt Level 5 (22632) Diagnoses Dermatomyositis M33.90 Osteopenia of left hip M85.852 Osteopenia location: hip Laterality: left Primary osteoarthritis of both hands M19.041; M19.042 Osteoarthritis type: primary
[2023-12-04 08:55] VITALS: BP 132/70; PULSE 77; O2SAT 97; BMI 32.9
== END 2023-12-04 09:34 | disposition home or self-care (01) ==
PROVIDERS: PCP Internal Medicine; Visit Provider Student in an Organized Health Care Education/Training Program
DX: M33.90 Dermatopolymyositis, unspecified, organ involvement unspecified (principal); M85.852 Other specified disorders of bone density and structure, left thigh; M19.041 Primary osteoarthritis, right hand; M19.042 Primary osteoarthritis, left hand
CPT/HCPCS: 99215

== ENCOUNTER → 2023-12-04 08:45 | Outpatient (BNVA) | payer MEDICARE, SELFPAY | PROVIDERS: PCP Internal Medicine; Visit Provider Student in an Organized Health Care Education/Training Program | DX: M33.90 Dermatopolymyositis, unspecified, organ involvement unspecified (principal); M85.852 Other specified disorders of bone density and structure, left thigh; M19.041 Primary osteoarthritis, right hand; M19.042 Primary osteoarthritis, left hand | CPT/HCPCS: 99212 ==

== ENCOUNTER 2023-12-18 09:17 | Outpatient (REF) | payer MEDICARE, SELFPAY ==
[2023-12-18] VITALS (8 sets, daily range): BP systolic 118–133; BP diastolic 55–78; PULSE 60–67; RESP 16–18; TEMP 37.1; O2SAT 99; BMI 33.0
--- NOTE | 2023-12-18 09:20 | PC.NURSE ---
pharmacy called for ivig
[2023-12-18] MEDS: diphenhydrAMINE HCL 25 MG CAPSULE PO (09:44)
[2023-12-18] MEDS: Acetaminophen 325 MG TABLET 650 MG PO (09:44)
[2023-12-18] MEDS: Immun Glob G(IgG)/Gly/IGA Ov50 200 ML IV ×2 (09:50→11:39)
== END 2023-12-18 09:18 | disposition home or self-care (01) ==
LOC: HO.MDS 09:17
PROVIDERS: Visit Provider Student in an Organized Health Care Education/Training Program
DX: M33.90 Dermatopolymyositis, unspecified, organ involvement unspecified (principal)
CPT/HCPCS: 96365; 96366; J1569

== ENCOUNTER 2023-12-19 09:17 | Outpatient (REF) | payer MEDICARE, SELFPAY ==
[2023-12-19] VITALS (8 sets, daily range): BP systolic 119–132; BP diastolic 65–83; PULSE 66–82; RESP 16; TEMP 36.7; O2SAT 95
[2023-12-19] MEDS: diphenhydrAMINE HCL 25 MG CAPSULE PO (09:27)
[2023-12-19] MEDS: Acetaminophen 325 MG TABLET 650 MG PO (09:27)
[2023-12-19] MEDS: Immun Glob G(IgG)/Gly/IGA Ov50 200 ML IV ×2 (09:35→11:09)
== END 2023-12-19 09:18 | disposition home or self-care (01) ==
LOC: HO.MDS 09:17
PROVIDERS: Visit Provider Student in an Organized Health Care Education/Training Program
DX: M33.90 Dermatopolymyositis, unspecified, organ involvement unspecified (principal)
CPT/HCPCS: 96365; 96366; J1569

== ENCOUNTER 2024-03-04 10:11 | Outpatient (AMB) | payer MEDICARE, SELFPAY ==
[2024-03-04 10:19] VITALS: BP 140/88; PULSE 67; O2SAT 99; BMI 32.9
--- NOTE | 2024-03-04 10:19 | A.OFFVIS_ITS ---
Vital Signs 03/04/24 10:19 Height 5 ft 5 in Weight 197 lb 8.547 oz BMI 32.9 BP 140/88 H Blood Pressure Location Rt brachial Position Sitting Pulse 67 Pulse Source Pulse Oximeter Pulse Oximetry (%) 99 Oxygen Delivery Method Room Air Intake Visit Reasons: DM Rn Surgical Pcu Required: No Accompanied by: Self / Same As Patient Allergies azathioprine Adverse Reaction (Intermediate, Verified 03/04/24 10:20) Unknown ciprofloxacin [From Cipro HC] Adverse Reaction (Intermediate, Verified 03/04/24 10:20) N/V doxycycline Adverse Reaction (Intermediate, Verified 03/04/24 10:20) Gastrointestinal Upset hydrocortisone [From Cipro HC] Adverse Reaction (Intermediate, Verified 03/04/24 10:20) N/V mycophenolate mofetil [From CellCept] Adverse Reaction (Intermediate, Verified 03/04/24 10:20) Rash Penicillins Adverse Reaction (Intermediate, Verified 03/04/24 10:20) Rash sulfamethoxazole [From Bactrim] Adverse Reaction (Verified 03/04/24 10:20) N/V trimethoprim [From Bactrim] Adverse Reaction (Verified 03/04/24 10:20) N/V Medication List - Last Reconciled 03/04/24 by Filippo Leigh MD acetaminophen (Tylenol Extra Strength) 500 mg PO Q6H PRN acetaminophen 650 mg (2 x 325 mg) PO ONCE PRN atenolol 75 mg PO DAILY calcium carbonate (Calcium 600) 1,200 mg PO DAILY clindamycin HCl 150 mg PO QID diphenhydramine HCl (Allergy Relief (diphenhydramine)) 50 mg (2 x 25 mg) PO ONCE PRN hydrochlorothiazide 25 mg PO DAILY immun glob G(IgG)-gly-IgA ov50 10 % (Gammagard Liquid) Give 40 g IV daily x 2 and then repeat every 5 weeks. 2 days naproxen sodium (Aleve) 220 mg PO BID PRN omeprazole 20 mg PO DAILY rosuvastatin 10 mg PO BEDTIME HPI Comments Details: 69-year-old female with dermatomyositis returns for follow-up. She states that been having generalized fatigue recently. She denies any epic and muscle weakness. Feels that her muscle strength is about the same. She stated that she had rashes on the dorsal aspect of her fingers a few weeks ago that self- resolved. She has been having burning sensation in her left calf at night. This has been going on over the last few months. Denies any significant back pain. Continues to have bloating and constipation. Most recent history by Dr. Oakley 08/2023: Patient returns for 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 She says she feels stable although still has difficulty rising from a chair. We have increased the interval between gammaglobulin doses out to 5 weeks. She has noted no recent skin rashes. She had no infusion reaction or side effects with the previous infusion of IVIG. I had ordered furosemide to follow those doses but she did not think she needed it because blood pressure was fine. She had no subsequent headache. 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 She is on her feet the most of the time and she is there for 5 hours. [facility] Medical History Allergic rhinitis GERD (gastroesophageal reflux disease) Hypertension Hyperlipidemia Varicose veins of both lower extremities DJD (degenerative joint disease) Anxiety Depression Dermatomyositis Primary open angle glaucoma of both eyes Obesity [facility] current use of immunosuppressive drug Diverticulitis Surgical History History of total knee replacement (TKR) H/O nasal septoplasty History of partial surgical removal of colon H/O tubal ligation H/O: hysterectomy History of tonsillectomy H/O colonoscopy Family History Mother Arthritis Hypertension Elevated cholesterol Brother Elevated cholesterol Myelofibrosis Diabetes Father Stomach cancer Maternal Aunt Gynecologic cancer Social History Household Members: Spouse and Children Alcohol intake: current Alcohol intake frequency: holidays/special occasions only Patient Tobacco Use Status: Former Tobacco user Current occupational status: employed 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 Review of Systems Const Reports fatigue Resp Reports no additional complaints GI Reports bloating Musc Reports arthralgias, Denies muscle weakness, Reports stiffness and Reports tingling Skin/Breast Denies rash Neuro Reports tingling and Reports paresthesias Endo Reports fatigue Physical Exam Vital Signs: Last Vital Signs Pulse 67 03/04/24 10:19 BP 140/88 H 03/04/24 10:19 Pulse Ox 99 03/04/24 10:19 Oxygen Delivery Method Room Air 03/04/24 10:19 BMI result Body Mass Index 32.9 Const General: cooperative, healthy appearing and comfortable Nutritional Appearance: obese Orientation/consciousness: patient oriented x3 Limitations: no limitations HEENT Head: Yes normocephalic and Yes atraumatic Mouth: moist mucous membranes Resp Effort & Inspection: normal respiratory effort and able to speak in complete sentences Auscultation: clear to auscultation bilaterally Cardio Rate: regular rate Rhythm: regular rhythm GI Palpation (GI): Soft to palpation Skin General skin exam: no rashes or lesions noted Neuro Other: No past ages upon palpation of her legs Intact position sense of her toes bilaterally General: patient oriented x3 Extrem Other: Mild osteoarthritic changes of both hands with no active synovitis Mild stiffness of left index PIP and minimal tenderness Proximal muscle strength 5/5 both upper extremities Patient having difficulty standing up without assistance with her upper extremities. Hip flexors 5-/5 bilaterally Nailfold capillaroscopy shows dilated loops and parallel hemorrhages Results Reviewed Results Reviewed: ? BONE DENSITY 08/2023 ? Lumbar Spine T-score is +0.5 (SD relative to 20-29 y/o adult) Z-score is +2.3 (SD relative to age matched peers) This is normal by criteria defined by the WHO. ? Left Hip T-score is -1.2 Z-score is +0.4 This is consistent with osteopenia by criteria defined by the WHO. ? Comparison exam(s): significant decrease in bone density of lumbar spine when compared to most recent bone density examination Confidence level is +/-95%. ? ? Impression: ? Based on the World Health Organization criteria, Dana Mcmahon should be classified as having osteopenia. This patient has a 13% risk of major osteoporotic fracture and a 1.3% risk of hip fracture over the next 10 years. (World Health Organization Fracture Risk Assessment) ? Assessment & Plan Assessment & Plan (1) Dermatomyositis: Comment: onset 09/2016; prox muscles weak, skin rashes, abnormal nailfold, 09/2017. HATTIE positive; anti-[place]-2 positive. EMG positive for myopathy Negative anti DNA, anti-TONY, Sjogren antibodies Prednisone started 02/14; azathioprine added in 03/17 Azathioprine held due to oral ulcers 04/16 CPK normalized, 04/16 MMF not tolerated 08/17 MTX started 09/16 -partial response, still requiring ~ 15-20 mg prednisone. IVI/19, 04/17, 05/18, 06/18:07/18, 50 gm daily X 3) 08/18, 09/17(50 gm daily X 2) and every 30 days MTX held due to LFT elevations - 02/16 - monthly IVIG continued December 2020: IVIG held because she had an abdominal abscess. Subsequent rise in CPK to greater than 9000 and return of weakness. January 2021: IVIG restarted as well as prednisone IVIG 40 gm X2 2 days Q4 WEEKS, spaced out to 40 gmX2 days Q5 weeks Code(s): M33.90 - Dermatopolymyositis, unspecified, organ involvement unspecified Category: Medical Plan: 69-year-old female with dermatomyositis returns for follow-up. Patient is doing fairly well overall. Upper extremity strength is normal but she continues to have some bilateral lower extremity weakness. She has done PT in the past. Her improvement seems to have plateaued. Her bilateral knee osteoarthritis is definitely a factor. Her skin rashes returned a few weeks ago on the dorsal aspect of her fingers and self-resolved. Continue with Gammagard 40 g x2 days Q5 weeks. Can consider spacing out Gammagard to Q 6 weeks in the future Labs today and before next visit in 3 months (2) Osteopenia: Comment: DEXA 08/2023 left hip T-score -1.2. Low FRAX score Code(s): M85.80 - Other specified disorders of bone density and structure, unspecified site Category: Medical Qualifiers: Osteopenia location: hip Laterality: left Qualified Code(s): M85.852 - Other specified disorders of bone density and structure, left thigh Plan: No need for antiresorptive therapy. Will check vitamin-D levels and supplement as needed (3) Peripheral neuropathy: Code(s): G62.9 - Polyneuropathy, unspecified Category: Medical Qualifiers: Peripheral neuropathy type: polyneuropathy, unspecified Qualified Code(s): G62.9 - Polyneuropathy, unspecified Plan: Symptoms consistent with peripheral neuropathy of her left lower extremity (4) Trigger finger: Code(s): M65.30 - Trigger finger, unspecified finger Category: Medical Plan: Not been a problem recently. It was injected in the past by Dr. Oakley and injection was helpful. Can repeat injections as needed Plan I spent 47 minutes reviewing patient's chart, evaluating patient, ordering diagnostic workup, counseling patient and documenting in the chart Orders: Orders IRON PROFILE Today R53.83 - Other fatigue Transferrin Today R53.83 - Other fatigue Comprehensive Met. Panel 3 Months M33.90 - Dermatopolymyositis, unspecified, organ involvement unspecified C Reactive Protein 3 Months M33.90 - Dermatopolymyositis, unspecified, organ involvement unspecified Erythrocyte Sedimentation Rate 3 Months M33.90 - Dermatopolymyositis, unspecified, organ involvement unspecified TSH reflex Free T4 Today R53.83 - Other fatigue Ferritin Today R53.83 - Other fatigue Complete Blood Count Auto Diff 3 Months M33.90 - Dermatopolymyositis, unspecified, organ involvement unspecified Creatine Kinase Total 3 Months M33.90 - Dermatopolymyositis, unspecified, organ involvement unspecified Coding Level of Care Code Est Pt Level 5 (06303) Complex EM visit Add On G2211 Diagnoses Dermatomyositis M33.90 Osteopenia of left hip M85.852 Osteopenia location: hip Laterality: left Peripheral polyneuropathy G62.9 Peripheral neuropathy type: polyneuropathy, unspecified Trigger finger M65.30
== END 2024-03-04 11:05 | disposition home or self-care (01) ==
PROVIDERS: PCP Internal Medicine; Visit Provider Student in an Organized Health Care Education/Training Program
DX: M33.90 Dermatopolymyositis, unspecified, organ involvement unspecified (principal); M85.852 Other specified disorders of bone density and structure, left thigh; G62.9 Polyneuropathy, unspecified; M65.30 Trigger finger, unspecified finger
CPT/HCPCS: 99215; G2211

== ENCOUNTER 2024-03-04 11:10 | Outpatient (REF) | payer MEDICARE, SELFPAY ==
[2024-03-04 13:08] LABS: MANUAL DIFF FLAG NO
[2024-03-04 13:11] LABS: Basophils Absolute Auto 0.1 X10*3/uL (0.0-0.2); Basophils Percent Auto 0.8 % (0-2); Eosinophils Absolute Auto 0.1 X10*3/uL (0.0-0.4); Eosinophils Percent Auto 1.6 % (0-4); Hematocrit 35.7 % (37.0-47.0); Imm Gran Abs Auto 0.02 X10*3/uL (0.00-0.03); Imm Gran Pct Auto 0.3 % (0.0-0.4); Lymphocytes Absolute Auto 1.9 X10*3/uL (1.2-4.9); Lymphocytes Percent Auto 29.3 % (20-40); Mean Corpuscular HGB Conc 33.6 g/dl (31.0-35.0); Mean Corpuscular Hemoglobin 28.9 pg (27.0-33.0); Mean Platelet Volume 9.8 fL (9.4-12.3); Monocytes Absolute Auto 0.5 X10*3/uL (0.1-1.2); Monocytes Percent Auto 7.3 % (2-11); Neutrophils Absolute Auto 3.9 x10*3/uL (2.0-8.3); Neutrophils Percent Auto 60.7 % (45-73); Platelet Count 493 X10*3/uL (160-400); Red Blood Count 4.15 X10*6/uL (4.20-5.50); Red Cell Distribution Width 15.7 % (11.0-16.0); White Blood Count 6.4 X10*3/uL (4.8-10.8)
[2024-03-04 13:31] LABS: Alanine Aminotransferase 23 U/L (0-31); Albumin Level 4.2 g/dL (3.5-5.0); Alkaline Phosphatase 86 U/L (39-117); Anion Gap 14 (12-20); Aspartate Amino Transferase 27 U/L (5-31); Bilirubin Total 0.5 mg/dL (0.0-1.0); Blood Urea Nitrogen 23 mg/dL (9-16); C Reactive Protein 0.12 mg/dL (< or = 0.50); Calcium 9.9 mg/dL (8.4-10.2); Carbon Dioxide 25 mmol/L (22-29); Chloride 108 mmol/L (96-108); Estimated Glomerular Filt Rate > 60; Glucose Random 96 mg/dL (60-115); Iron 78 mcg/dL (30-160); Percent Iron Saturation 25 % (15-50); Potassium 4.5 mmol/L (3.3-5.1); Sodium 142 mmol/L (135-145); Total Iron Binding Capacity 312 mcg/dL (228-428); Total Protein 8.4 g/dL (6.5-8.0); Unsaturated Iron Binding 234 ug/dL
[2024-03-04 13:50] LABS: Ferritin 118 ng/mL (10-250); TSH reflex Free T4 1.49 uIU/mL (0.32-4.0)
[2024-03-04 13:55] LABS: Erythrocyte Sedimentation Rate 33 MM/HR (0-20)
[2024-03-05 10:44] LABS: Transferrin 275 mg/dL (188-341)
[2024-03-08 17:24] LABS: Vitamin D 25-OH, D2 5 ng/mL; Vitamin D 25-OH, D3 19 ng/mL; Vitamin D 25-OH, Total 24 ng/mL (30-100)
== END 2024-03-04 11:11 | disposition home or self-care (01) ==
LOC: HO.10HDL 11:10
PROVIDERS: Visit Provider Student in an Organized Health Care Education/Training Program
DX: Z13.21 Encounter for screening for nutritional disorder (principal); R53.83 Other fatigue; M33.90 Dermatopolymyositis, unspecified, organ involvement unspecified; M85.852 Other specified disorders of bone density and structure, left thigh; G62.9 Polyneuropathy, unspecified; M65.30 Trigger finger, unspecified finger
CPT/HCPCS: 36415; 80053; 82306; 82550; 82728; 83540; 84443; 84466; 85025; 85652; 86140; 99212

== ENCOUNTER 2024-08-14 08:09 | Outpatient (REF) | payer MEDICARE, SELFPAY ==
[2024-08-14 10:30] LABS: MANUAL DIFF FLAG NO
[2024-08-14 10:32] LABS: Basophils Absolute Auto 0.1 X10*3/uL (0.0-0.2); Basophils Percent Auto 1.2 % (0-2); Eosinophils Absolute Auto 0.2 X10*3/uL (0.0-0.4); Eosinophils Percent Auto 2.1 % (0-4); Hemoglobin 11.6 g/dl (12.0-16.0); Imm Gran Abs Auto 0.04 X10*3/uL (0.00-0.03); Imm Gran Pct Auto 0.5 % (0.0-0.4); Lymphocytes Absolute Auto 2.1 X10*3/uL (1.2-4.9); Lymphocytes Percent Auto 24.8 % (20-40); Mean Corpuscular HGB Conc 34.1 g/dl (31.0-35.0); Mean Corpuscular Hemoglobin 29.4 pg (27.0-33.0); Mean Corpuscular Volume 86.1 fL (80.0-98.0); Mean Platelet Volume 9.9 fL (9.4-12.3); Monocytes Absolute Auto 0.6 X10*3/uL (0.1-1.2); Monocytes Percent Auto 6.9 % (2-11); Neutrophils Absolute Auto 5.5 x10*3/uL (2.0-8.3); Neutrophils Percent Auto 64.5 % (45-73); Platelet Count 658 X10*3/uL (160-400); Red Blood Count 3.95 X10*6/uL (4.20-5.50); Red Cell Distribution Width 15.7 % (11.0-16.0); White Blood Count 8.5 X10*3/uL (4.8-10.8)
[2024-08-14 11:03] LABS: Alanine Aminotransferase 36 U/L (0-31); Alkaline Phosphatase 94 U/L (39-117); Anion Gap 7 (12-20); Aspartate Amino Transferase 47 U/L (5-31); Bilirubin Total 0.6 mg/dL (0.0-1.0); Blood Urea Nitrogen 24 mg/dL (9-16); C Reactive Protein 0.19 mg/dL (< or = 0.50); Calcium 9.4 mg/dL (8.4-10.2); Carbon Dioxide 30 mmol/L (22-29); Chloride 105 mmol/L (96-108); Estimated Glomerular Filt Rate > 60; Glucose Random 116 mg/dL (60-115); Sodium 138 mmol/L (135-145); Total Protein 8.2 g/dL (6.5-8.0)
[2024-08-14 11:19] LABS: Erythrocyte Sedimentation Rate 53 MM/HR (0-20)
== END 2024-08-14 08:10 | disposition home or self-care (01) ==
LOC: HO.10HDL 08:09
PROVIDERS: Visit Provider Student in an Organized Health Care Education/Training Program
DX: M33.90 Dermatopolymyositis, unspecified, organ involvement unspecified (principal)
CPT/HCPCS: 36415; 80053; 82550; 85025; 85652; 86140

== ENCOUNTER 2024-08-19 12:43 | Outpatient (AMB) | payer MEDICARE, SELFPAY ==
--- NOTE | 2024-08-19 12:48 | MHC.OFFVIS ---
Vital Signs 08/19/24 12:53 Height 5 ft 5 in Weight 186 lb 15.232 oz BMI 31.1 BP 132/80 Blood Pressure Location Rt brachial Position Sitting Respiration 16 Pulse 73 Pulse Source Pulse Oximeter Pulse Oximetry (%) 98 Oxygen Delivery Method Room Air Intake Visit Reasons: myositis/CM APT Intake Note: Patient presents for Myositis. Allergies azathioprine Adverse Reaction (Intermediate, Verified 08/19/24 12:51) Unknown ciprofloxacin [From Cipro HC] Adverse Reaction (Intermediate, Verified 08/19/24 12:51) N/V doxycycline Adverse Reaction (Intermediate, Verified 08/19/24 12:51) Gastrointestinal Upset hydrocortisone [From Cipro HC] Adverse Reaction (Intermediate, Verified 08/19/24 12:51) N/V mycophenolate mofetil [From CellCept] Adverse Reaction (Intermediate, Verified 08/19/24 12:51) Rash Penicillins Adverse Reaction (Intermediate, Verified 08/19/24 12:51) Rash sulfamethoxazole [From Bactrim] Adverse Reaction (Verified 08/19/24 12:51) N/V trimethoprim [From Bactrim] Adverse Reaction (Verified 08/19/24 12:51) N/V Medication List - Last Reconciled 08/19/24 by Filippo Leigh MD acetaminophen (Tylenol Extra Strength) 500 mg PO Q6H PRN acetaminophen 650 mg (2 x 325 mg) PO ONCE PRN atenolol 75 mg PO DAILY calcium carbonate (Calcium 600) 1,200 mg PO DAILY clindamycin HCl 150 mg PO QID diphenhydramine HCl (Allergy Relief (diphenhydramine)) 50 mg (2 x 25 mg) PO ONCE PRN hydrochlorothiazide 25 mg PO DAILY immun glob G(IgG)-gly-IgA ov50 10 % (Gammagard Liquid) Give 40 g IV daily x 2 and then repeat every 5 weeks. 2 days naproxen sodium (Aleve) 220 mg PO BID PRN omeprazole 20 mg PO DAILY rosuvastatin 10 mg PO BEDTIME HPI Comments Details: 69-year-old female with dermatomyositis returns for follow-up. She states that recently she has been having some chest heaviness and shortness of breath with activity especially with going up and down the stairs. This has been going on for the last month. She was evaluated by her PCP and the CT scan of the chest was ordered. It will be done in the beginning of August. She states that she has not noticed any changes in her muscle pains or weakness. She denies any dysphagia. Denies any skin rashes or joint pains. 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 current use of immunosuppressive drug Diverticulitis Surgical History History of total knee replacement (TKR) H/O nasal septoplasty History of partial surgical removal of colon H/O tubal ligation H/O: hysterectomy History of tonsillectomy H/O colonoscopy Family History Mother Arthritis Hypertension Elevated cholesterol Brother Elevated cholesterol Myelofibrosis Diabetes Father Stomach cancer Maternal Aunt Gynecologic cancer Social History Household Members: Spouse and Children Alcohol intake: current Alcohol intake frequency: holidays/special occasions only Patient Tobacco Use Status: Former Tobacco user Current occupational status: employed 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 Review of Systems Card Reports dyspnea on exertion Resp Denies cough and Reports dyspnea on exertion Musc Denies arthralgias, Denies joint swelling and Denies muscle weakness Skin/Breast Denies rash Physical Exam Vital Signs: Last Vital Signs Pulse 73 08/19/24 12:53 Resp 16 08/19/24 12:53 BP 132/80 08/19/24 12:53 Pulse Ox 98 08/19/24 12:53 Oxygen Delivery Method Room Air 08/19/24 12:53 BMI result Body Mass Index 31.1 Const General: cooperative, healthy appearing and comfortable Nutritional Appearance: obese Orientation/consciousness: patient oriented x3 Limitations: no limitations HEENT Head: Yes normocephalic and Yes atraumatic Mouth: moist mucous membranes Resp Effort & Inspection: normal respiratory effort and able to speak in complete sentences Auscultation: clear to auscultation bilaterally Cardio Rate: regular rate Rhythm: regular rhythm GI Palpation (GI): Soft to palpation Skin General skin exam: no rashes or lesions noted Neuro General: patient oriented x3 Extrem Other: Mild osteoarthritic changes of both hands with no active synovitis Proximal muscle strength 5/5 both upper extremities Patient having difficulty standing up without assistance with her upper extremities. Hip flexors 5-/5 bilaterally Nailfold capillaroscopy shows dilated loops and parallel hemorrhages Assessment & Plan Assessment & Plan (1) Dermatomyositis: Comment: onset 09/2016; prox muscles weak, skin rashes, abnormal nailfold, 09/2017. HATTIE positive; anti-AZ-2 positive. EMG positive for myopathy Negative anti DNA, anti-TONY, Sjogren antibodies Prednisone started 02/14; azathioprine added in 03/17 Azathioprine held due to oral ulcers 04/16 CPK normalized, 04/16 MMF not tolerated 08/17 MTX started 09/16 -partial response, still requiring ~ 15-20 mg prednisone. IVI/19, 04/17, 05/18, 06/18:07/18, 50 gm daily X 3) 08/18, 09/17(50 gm daily X 2) and every 30 days MTX held due to LFT elevations - 02/16 - monthly IVIG continued December 2020: IVIG held because she had an abdominal abscess. Subsequent rise in CPK to greater than 9000 and return of weakness. January 2021: IVIG restarted as well as prednisone IVIG 40 gm X2 2 days Q4 WEEKS, spaced out to 40 gmX2 days Q5 weeks Code(s): M33.90 - Dermatopolymyositis, unspecified, organ involvement unspecified Category: Medical Plan: 69-year-old female with dermatomyositis returns for follow-up. She remains on Gammagard 40 g x2 days Q5 weeks. Symptomatically, patient feels about the same. There is no worsening muscle weakness on exam. Sent labs however showed mildly elevated CPK. No recent illnesses or fevers. Advised patient to keep monitoring her symptoms for any change in muscle strength. If there is any weakness, we can increase her Gammagard dose or shortened the dosing interval Labs before next visit in 3 months (2) Shortness of breath: Code(s): R06.02 - Shortness of breath Category: Medical Plan: Per patient, shortness of breath with exertion over the last month. CT scan of the chest was ordered by patient's PCP. Advised patient to let me know as soon as it was done and I will check the [facility] record for the report Plan I spent 27 minutes reviewing patient's chart, evaluating patient, ordering diagnostic workup, counseling patient and documenting in the chart Orders: Orders Creatine Kinase Total 3 Months M33.90 - Dermatopolymyositis, unspecified, organ involvement unspecified Erythrocyte Sedimentation Rate 3 Months M33.90 - Dermatopolymyositis, unspecified, organ involvement unspecified Complete Blood Count Auto Diff 3 Months M33.90 - Dermatopolymyositis, unspecified, organ involvement unspecified Comprehensive Met. Panel 3 Months M33.90 - Dermatopolymyositis, unspecified, organ involvement unspecified C Reactive Protein 3 Months M33.90 - Dermatopolymyositis, unspecified, organ involvement unspecified Coding Level of Care Code Est Pt Level 4 (63514) Diagnoses Dermatomyositis M33.90 Shortness of breath R06.02
[2024-08-19 12:53] VITALS: BP 132/80; PULSE 73; RESP 16; O2SAT 98; BMI 31.1
== END 2024-08-19 13:22 | disposition home or self-care (01) ==
PROVIDERS: PCP Internal Medicine; Visit Provider Student in an Organized Health Care Education/Training Program
DX: M33.90 Dermatopolymyositis, unspecified, organ involvement unspecified (principal); R06.02 Shortness of breath
CPT/HCPCS: 99214

== ENCOUNTER → 2024-08-19 12:43 | Outpatient (BNVA) | payer MEDICARE, SELFPAY | PROVIDERS: PCP Internal Medicine; Visit Provider Student in an Organized Health Care Education/Training Program | DX: M33.90 Dermatopolymyositis, unspecified, organ involvement unspecified (principal); R06.02 Shortness of breath | CPT/HCPCS: 99212 ==

== ENCOUNTER 2024-11-17 08:41 | Outpatient (REF) | payer MEDICARE, SELFPAY ==
[2024-11-17 08:58] LABS: MANUAL DIFF FLAG NO
--- OUTSIDE RECORDS SUMMARY | 2024-11-17 09:10 | XMS_ITS | Clinical Summary ---
Author Organization [facility] Address [address] [place] [address] Care Team Providers Care Marketing Technology Coordinator Name Role Phone Sabrina Mauricio MD Primary Care Provider [phone] Allergies Active Allergy Reactions Criticality Noted Date Comments Azathioprine Other (See Comments) Medium 04/25/2022 Itching and or sores in mouth ,pt unsure whichh reaction Ciprofloxacin Nausea And Vomiting Medium 04/25/2022 Doxycycline 04/01/2024 Penicillins Hives Medium 04/25/2022 Sulfamethoxazole-Trimeth oprim Nausea Only Low 04/25/2022 Medications Medication Sig Dispensed Refills Start Date End Date Status atenolol (TENORMIN) tablet 50 mg Take 1.5 tablets (75 mg total) by mouth daily. 0 08/13/2006 Active omeprazole (PriLOSEC) 20 MG capsule Take 1 capsule (20 mg total) by mouth daily. 0 04/10/2022 Active rosuvastatin (CRESTOR) tablet 10 mg Take 1 tablet (10 mg total) by mouth daily. 0 04/10/2022 Active hydroCHLOROthiazide (HYDRODIURIL) tablet 25 mg Take 1 tablet (25 mg total) by mouth daily. 0 10/05/2021 Active latanoprost (XALATAN) 0.005 % ophthalmic solution Place 1 drop into both eyes every night at bedtime. 0 Active vitamin D3 (cholecalciferol) 10 MCG (400 UNIT) tablet Take 1 tablet (10 mcg total) by mouth daily. 0 Active Calcium Carbonate-Vit D-Min (CALCIUM 1200 PO) Take by mouth. 0 Active Probiotic Product (PROBIOTIC-10 PO) Take by mouth. 0 Act veronique Docusate Calcium (STOOL SOFTENER PO) Take by mouth. 0 A ctive linaclotide (Linzess) 145 MCG CAPS Take 1 capsule (145 mcg total) by mouth every morning before breakfast. 0 Active Active Problems Problem Noted Date Diagnosed Date Dermatomyositis 04/25/2022 Family History Medical History Relation Name Comments Cancer Father Relation Name Status Comments Father Social History Tobacco Use Types Packs/Day Years Used Date Smoking Tobacco: Former Cigarettes 0.3 5 Smokeless Tobacco: Never Alcohol Use Standard Drinks/Week Comments Not Currently 0 (1 standard drink = 0.6 oz pur e alcohol) Sex and Gender Information Value Date Recorded Sex Assigned at Female 04/24/2022 10:53 AM EDT Gender Identity Female 04/27/2022 11:42 AM EDT Sexual Orientation Straight 04/27/2022 11 :42 AM EDT Job Start Date Occupation Industry Not on file Not on file Not on file Last Filed Vital Signs Vital Sign Reading Time Taken Comments Blood Pressure 159/76 05/27/2024 11:24 AM EDT Pulse 71 05/27/2024 11:24 AM EDT Temperature 36.9 ??C (98.4 ??F) 05/27/2024 11:24 AM E DT Respiratory Rate 16 02/06/2023 9:17 AM EDT Oxygen Saturation 100% 05/27/2024 11:24 AM EDT Inhaled Oxygen Concentration - - Weight 88.1 kg (194 lb 3.2 oz) 05/27/2024 11:24 AM EDT Height 165.1 cm (5' 5 ) 05/27/2024 11:24 AM EDT Body Mass Index 32.32 05/27/2024 11:24 AM EDT Plan of Treatment Health Maintenance Due Date Last Done Comments Hepatitis C Screening 1955 COVID-19 Vaccine (#1) 1955 Depression Screening 1969 Preventative Health Evaluation 1975 Colon Cancer Screening (Colonoscopy) 2002 Breast Cancer Screening (Mammogram) 2007 Shingrix-Zoster Vaccine (1 of 2) 2007 DTap / Tdap / Td (2 - Td or Tdap) 05/12/2018 05/12/2008 Fall Risk Assessment 2022 Osteoporosis Screening (DEXA Scan) 2022 Pneumococcal Vaccine (3 of 3 - PPSV23 or PCV20) 11/12/2023 11/12/2018, 03/31/2018 Influenza Vaccine (#1) 2024 3, 08/11/2021, 06/14/2020, Additional history exists RSV Adult > 60+ Yrs or (1 - 1-dose 75+ series) 02/29/2032 Hepatitis B Vaccines Aged Out No long er eligible based on patient's age to complete this topic RSV Ped < 20 months Aged Out No longe r eligible based on patient's age to complete this topic Care Teams Marketing Technology Coordinator Relationship Specialty Start Date End Date Sabrina Mauricio MD PCP - General Internal Medicine 04/18/22
[2024-11-17 09:40] LABS: Basophils Absolute Auto 0.1 X10*3/uL (0.0-0.2); Basophils Percent Auto 0.9 % (0-2); Eosinophils Absolute Auto 0.2 X10*3/uL (0.0-0.4); Eosinophils Percent Auto 2.4 % (0-4); Hematocrit 35.9 % (37.0-47.0); Hemoglobin 11.8 g/dl (12.0-16.0); Imm Gran Abs Auto 0.03 X10*3/uL (0.00-0.03); Imm Gran Pct Auto 0.4 % (0.0-0.4); Lymphocytes Absolute Auto 1.6 X10*3/uL (1.2-4.9); Lymphocytes Percent Auto 18.9 % (20-40); Mean Corpuscular HGB Conc 32.9 g/dl (31.0-35.0); Mean Corpuscular Volume 88.2 fL (80.0-98.0); Monocytes Absolute Auto 0.5 X10*3/uL (0.1-1.2); Monocytes Percent Auto 5.5 % (2-11); Neutrophils Absolute Auto 5.9 x10*3/uL (2.0-8.3); Neutrophils Percent Auto 71.9 % (45-73); Platelet Count 620 X10*3/uL (160-400); Red Blood Count 4.07 X10*6/uL (4.20-5.50); Red Cell Distribution Width 15.6 % (11.0-16.0); White Blood Count 8.2 X10*3/uL (4.8-10.8)
[2024-11-17 10:16] LABS: Erythrocyte Sedimentation Rate 17 MM/HR (0-20)
[2024-11-17 10:36] LABS: Alanine Aminotransferase 24 U/L (0-31); Albumin Level 4.1 g/dL (3.5-5.0); Alkaline Phosphatase 90 U/L (39-117); Anion Gap 15 (12-20); Aspartate Amino Transferase 28 U/L (5-31); Bilirubin Total 0.4 mg/dL (0.0-1.0); Blood Urea Nitrogen 18 mg/dL (9-16); C Reactive Protein 0.18 mg/dL (< or = 0.50); Calcium 9.5 mg/dL (8.4-10.2); Carbon Dioxide 25 mmol/L (22-29); Chloride 107 mmol/L (96-108); Estimated Glomerular Filt Rate > 60; Glucose Random 143 mg/dL (60-115); Sodium 143 mmol/L (135-145); Total Protein 7.6 g/dL (6.5-8.0)
== END 2024-11-17 08:42 | disposition home or self-care (01) ==
LOC: HO.LAB 08:41
PROVIDERS: PCP Internal Medicine; Visit Provider Student in an Organized Health Care Education/Training Program
DX: M33.90 Dermatopolymyositis, unspecified, organ involvement unspecified (principal)
CPT/HCPCS: 36415; 80053; 82550; 85025; 85652; 86140

== ENCOUNTER 2024-11-18 11:55 | Outpatient (AMB) | payer MEDICARE, SELFPAY ==
--- OUTSIDE RECORDS SUMMARY | 2024-11-18 12:30 | XMS_ITS | Encounter Summary ---
Author Organization [facility] Address [address] [place] [address] Care Team Providers Care Head Teacher Name Role Phone Sabrina Mauricio MD Primary Care Provider [phone] Reason for Visit * Reason Comments Lung Nodule Middle of Right lobe Encounter Details Date Type Department Care Team ([facility] st Contact Info) Description 10/30/2024 11:50 AM EST [facility] [place] [address] [place] [phone] Sandra Person NP [address] [place] [address] Lung nodules (Primary Dx); Mass of middle lobe of right lung Social History Tobacco Use Types Packs/Day Years Used Date Smoking Tobacco: Former Cigarettes 0.5 20.3 0 09/30/1979 - 01/29/2000 Smokeless Tobacco: Never Tobacco Cessation:Counseling Given: Not Answered Alcohol Use Standard Drinks/Week Comments No 0 (1 standard drink = 0.6 oz pur e alcohol) Comments Unknown Sex and Gender Information Value Date Recorded Sex Assigned at Female 08/12/2024 4:06 PM EST Legal Sex Female 1:24 AM EST Gender Identity Female 08/12/2024 4:06 PM EST Sexual Orientation Straight 08/12/2024 4: 06 PM EST documented as of this encounter Last Filed Vital Signs Vital Sign Reading Time Taken Comments Blood Pressure 126/84 10/30/2024 11:30 AM EST Pulse 87 10/30/2024 11:30 AM EST Temperature 35.9 ??C (96.6 ??F) 10/30/2024 1 1:30 AM EST Respiratory Rate 16 10/30/2024 11:3 0 AM EST Oxygen Saturation 98% 10/30/2024 11: 30 AM EST Inhaled Oxygen Concentration - - Weight 83.4 kg (183 lb 12.8 oz) 025 11:30 AM EST Height 165.1 cm (5' 5 ) 10/30/2024 11:3 0 AM EST Body Mass Index 30.59 10/30/2024 11:30 AM EST documented in this encounter Progress Notes * Sandra Person NP - 10/30/2024 11:50 AM EST ADULT PULMONARY CONSULT CHIEF COMPLAINT or REASON FOR CONSULTATION: No chief complaint on file. IDENTIFIER Dana Mcmahon is a 69 y.o. years old, female History of Present Illness The patient is a 69-year-old female who comes for follow-up on a right middle lobe irregular solid nodule measuring 2.[address] chest done 09/16/2024. She underwent a PET scan on 10/09/2024 which shows mild uptake and was referred to thoracic surgery with an appointment on 11/05/2024. She feels it better take out nodules then just to biopsy and if not malignant leave itdue to possibility worsening in the future. Patient had PFT since last visit, which shows no abnormalities . She denies any respiratory symptoms today. No weight loss in last month but states over last year due to stress and poor sleeping low appetite and lost 10 lb. No coughing blood or chest pain. She states mild former smoker but states her never smoked but had lung cancer but none of her family members was diagnosed with lung issues. ALLERGIES: Allergies Allergen Reactions Azathioprine Other Reaction(s): OTHER, Other (See Comments) Itching and or sores in mouth ,pt unsure whichh reaction Ciprofloxacin Nausea And Vomiting Penicillins Hives Other Reaction(s): Rash/Dermatitis Sulfamethoxazole-Trimethoprim Nausea And Vomiting and Nausea Only Doxycycline Mycophenolate Mofetil Other Reaction(s): Rash/Dermatitis ACTIVE MEDICATIONS: Outpatient Medications Marked as Taking for the 10/30/24 encounter (Office Visit) with Sandra Person NP Medication Sig Dispense Refill acetaminophen (TYLENOL) 325 mg tablet Take 2 tablets (650 mg total) by mouth. atenoloL (TENORMIN) 50 mg tablet Take 1.5 tablets (75 mg total) by mouth 1 (one) time each day. calcium citrate/vitamin D3 (CALCIUM CITRATE + D ORAL) Take by mouth. hydroCHLOROthiazide (HYDRODIURIL) 25 mg tablet Take 1 tablet (25 mg total) by mouth 1 (one) time each day. immune globulin, human, (Gammagard S-D, IgA < 1 mcg/mL,) infusion Infuse into a venous catheter. latanoprost (XALATAN) 0.005 % ophthalmic solution Administer 1 drop into affected eye(s). omeprazole (PriLOSEC) [address] capsule Take 1 capsule (20 mg total) by mouth. plecanatide (Trulance) 3 mg tablet Take 1 tablet (3 mg total) by mouth 1 (one) time each day. rosuvastatin (CRESTOR) 10 mg tablet Take 1 tablet (10 mg total) by mouth 1 (one) time each day. PROVIDER ATTESTS THAT THE MEDICATION LIST WAS OBTAINED, REVIEWED AND UPDATED. REVIEW OF SYSTEMS: GENERAL: Negative for malaise, significant weight loss and fever HEENT: No changes in hearing or vision, no nose bleeds or other nasal problems NECK: Negative for lumps, goiter, pain and significant neck swelling RESPIRATORY: see HPI CARDIOVASCULAR: No chest pain, leg swelling or palpitations GI: No abdominal discomfort, blood in stools or black stools, or acid reflex : No dysuria, frequency or incontinence or nocturia MUSCULOSKELETAL: No joint pain or swelling, back pain, or muscle pain. SKIN: No lesions, rash or itching PSYCH: No sleep disturbance, +anxiety, +depression, claustrophobia or SI/HI. HEMATOLOGY/LYMPHOLOGY No prolonged bleeding, easy bruisability or swollen nodes ENDOCRINE: No cold or heat intolerance, polyuria, polydipsia or goiter. 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 07/16/2024 History of diverticulitis 07/16/2024 Mass of middle lobe of right lung 03/13/2024 Constipation 03/05/2024 Thrombocytosis 03/05/2024 Elevated vitamin B12 level 03/05/2024 S/P partial colectomy 03/04/2024 Osteopenia 09/11/2023 Obesity (BMI 30.0-34.9) 09/07/2019 Primary open angle glaucoma (POAG) of both eyes 07/15/2018 Dermatomyositis (CMS/HCC) 02/25/2018 Depression 10/14/2017 Anxiety 10/14/2017 Total knee replacement status 02/06/2017 DJD (degenerative joint disease) of knee 01/14/2014 Tubular adenoma 03/05/2012 History of parotid gland removal 02/08/2011 Varicose veins of both lower extremities 05/12/2008 Hypertension 05/27/2006 Hyperlipidemia 05/27/2006 GERD (gastroesophageal reflux disease) 03/28/2006 Allergic rhinitis 03/28/2006 Past Surgical History: Procedure Laterality Date BREAST BIOPSY Left 2002ish PROCEDURE: BX BREAST; PERC NEEDLE CORE W/IMAG GUID; COMMENT: neg COLONOSCOPY 2007 PROCEDURE: HISTORICAL COLONOSCOPY; COMMENT: small tubular adenomas x 2 COLONOSCOPY 2012 PROCEDURE: HISTORICAL COLONOSCOPY; COMMENT: small polyp at 15 cm: Tubular adenoma. COLONOSCOPY 06/27/2018 PROCEDURE: HISTORICAL COLONOSCOPY; COMMENT: Diverticulosis; no polyps. HYSTERECTOMY PROCEDURE:HYSTERECTOMY NASAL SEPTUM SURGERY PROCEDURE: RI REPAIR NASAL SEPTAL PERFORATIONS; COMMENT: 2002 OTHER SURGICAL HISTORY 03/2019 PROCEDURE: MAMMOGRAM OTHER SURGICAL HISTORY PROCEDURE: HISTORICAL TOTAL HYSTERECTOMY W/O BSO; COMMENT: BOTH OVARIES REMAIN OTHER SURGICAL HISTORY Left 11/15/2020 PROCEDURE: RI COLECTOMY PARTIAL W/ANASTOMOSIS; COMMENT: Laparoscopic left colectomy with mobilization of splenic flexure, I&D of peritoneal abscess, repair of colovesical fistula - by Dr. Mathew Alvarez to address diverticulitis complicated by perforation and intra-abdominal abscess near dome ofbladder as wel TONSILLECTOMY PROCEDURE: HISTORICAL TONSILLECTOMY TOTAL KNEE ARTHROPLASTY PROCEDURE:REPLACEMENT TOTAL KNEE BILATERAL TOTAL KNEE ARTHROPLASTY Bilateral 12/14; 02/13 PROCEDURE: RI ARTHRP KNE CONDYLE&PLATU MEDIAL&LAT COMPARTMENTS; COMMENT: L, R - NEOS TUBAL LIGATION PROCEDURE: HISTORICAL TUBAL LIGATION SOCIAL HISTORY: TOBACCO: Started 18 years old, Quit: 40 years ago, around 1 pack per weekly at the most, for at least 9 years. Patient is less then 5 PPY. 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 LUNGS FAMILY HISTORY: daughter-asthma, No hx of lung cancer but bone CA and father- prostate CA. IMMUNIZATION: 2022 Influenza Vaccine 2018 Pneumococcal 13 2018 Pneumococcal 23 2020 Moderna x2 PULMONARY HOSPITALIZATION Hx: Never hospitalized for breathing VITAL SIGNS: Visit Vitals BP 126/84 Pulse 87 Temp 35.9 ??C (96.6 ??F) (Temporal) Resp 16 Ht 1.651 m (65 ) Wt 83.4 kg (183 lb 12.8 oz) SpO2 98% BMI 30.59 kg/m?? Smoking Status Former BSA 1.91 m?? Physical Exam APPEARANCE: Obese(30.59). Alert and in no acute distress. Speaks in full sentences. No stridor. EYES: Conjunctiva and sclera normal. NOSE/SINUS: Nares normal. Septum midline. MOUTH/THROAT: no erythema or exudates. NECK: Neck supple, thyroid symmetric and of normal size. HEART: RRR with normal S1 and S2, no murmurs, no gallops, no JVD appreciated. LUNG: Vesicular lung sounds adequate bilaterally without wheezing, crackles, rhonchi, rales, or rubs. ABDOMEN: Bowel sounds normoactive, soft, non-tender EXTREMITIES: Warm and well-perfused without clubbing, cyanosis, or edema. LYMPH NODES: No cervical and supra-clavicular lymphadenopathy. NEURO: Awake, alert and oriented x 3, no focalization. DIAGNOSTIC DATA: PULMONARY RELATED OXYGEN TESTS Peripheral oxygen saturation or SpO2 on RA today is 98%. CARDIOPULMONARY TEST: 10/28/2024 Last Pulmonary function Test showed: FEV1/FVC 83%. FEV1 2.34 at 96%. FVC 88%. No bronchodilator response. TLC 91%. RV 85%. DLCO 72% (adjusted 85%). No obstruction. No restriction. And no decrease in diffusion. RADIOLOGIST IMAGIN10/08/[address] Skull to Mid Thigh INDICATION: Lung nodule, > 8mmPaitnet has R lung 2.9cm nodules on lateral medial lobe, weight loss in last months. TECHNIQUE: FDG PET-CT imaging was performed from the skull bases through the thighs in a single acquisition with data set reconstructed in axial, coronal, and sagittal planes at the computer workstation with fused data from both the PET imaging study and attenuation correction CT. The CT portion ofthe examination was done strictly for attenuation correction and is not a true diagnostic CT examination. DLP: 1076 mGy-cm Radiopharmaceutical: 12.9 mCi of F-18 FDG IV. Blood glucose: 98 mg/dl. COMPARISON: Chest CT 08/2024 and MRI of the abdomen 09/2024. FINDINGS: HEAD AND NECK: Low attenuation lesion in the left thyroid lobe without significant FDG activity SUVmax 1.9 (background SUV max 2.4). THORAX: 2.4 cm nodule in the right middle lobe SUV max 2.8. Other scattered smaller sub-5 mm pulmonary nodules SUV Max 1.0. Right superior hilar lymph node SUV max 2.5, right paratracheal lymph node SUV max 1.5 and subcarinal SUV max 1.6 (mediastinal blood pool SUV Max 3.2). Nonenlarged bilateral axillary lymph nodes SUV max 1.3 on the left. Nonspecific FDG activity projecting at the level of the mid to distal esophagus SUV max 3.9, some of which may represent volume averaging with cardiac activity. ABDOMEN/PELVIS: No abnormal FDG activity. MUSCULOSKELETAL: No abnormal FDG activity. IMPRESSION: 1. Indeterminant right middle lobe nodule demonstrating mild to moderate FDG activity 2. No significant FDG avid thoracic lymphadenopathy in comparison to background CT CHEST WITHOUT CONTRAST Result Date:09/16/2024 CLINICAL INFORMATION: Abnormal CT abdomen. 5 mm lung nodule COMPARISON: Portions of abdomen CT 01/16/[address]. [address] from February 2024 available for comparison FINDINGS: LUNG: There is an irregular solid 2.9 cm nodule in the lateral segment of the middle lobe. This hasa somewhat linear configuration. This extends to the pleural reflections. No suspicious abnormality of the trachea or mainstem bronchi. There is a fissural nodule associated with the anterior and lateral aspect of the minor fissure (4/109) There is a peripheral nodule in the lateral segment of the middle lobe measuring approximately 0.3 cm (4/116) There is a micronodule in the periphery of each lung measuring less than 0.4 cm No honeycomb formation. No edema. No generalized thickening of the intralobular septa. MEDIASTINUM: There is an approximately 1.6 cm low attenuating left lobe thyroid nodule. There are no measurably enlarged mediastinal lymph nodes. There is a small hiatal hernia. CARDIAC: The heart is not enlarged. No pericardial fluid or thickening CORONARY CALCIFICATION: There are mild coronary calcifications. VASCULAR: There is no thoracic aortic aneurysm. The main pulmonary artery is normal caliber PLEURA: There is no pleural fluid or pneumothorax AXILLA/CHEST WALL: There are no enlarged axillary lymph nodes. No chest wall mass demonstrated VISUALIZED UPPER ABDOMEN: Circumscribed 0.7 cm low attenuating lesion near the interface between hepatic segment 4A and 8. This may have slightly increased in size since 2020. There is a slightly exophytic low attenuating lesion arising from the lateral mid left kidney not completely included or characterized. MUSCULOSKELETAL: There is a nonspecific sclerotic focus in the sternal manubrium (12/18). IMPRESSION: There is a highly concerning solid abnormality in the lateral segment of the middle lobe. Malignancy could be present. Further evaluation is required. There are a few other scattered micronodules which are nonspecific. Small low attenuating lesion in the liver could be a cyst but has slightly increased in size since 2020. Tiny nonspecific sclerotic focus in the sternal manubrium. Recommend pulmonary consultation. Consider tissue diagnosis or PET/CT. ASSESSMENT: 1. Lung nodules 2. Mass of middle lobe of right lung Assessment & Plan 1. Right middle lobe irregular solid nodule: Stable. The nodule in RML measured 2.[address] measures 2.4 cm but has shown mild uptake on PET scan. Further examination is necessary. Definite diagnosis of malignancy can only be established by nodule biopsy. Her PFT did not reveal and obstructive or r estrictive changes as well as her diffusion is normal. - Referred to thoracic surgery with an appointment on 11/05/2024. - The patient was educated about lung nodules and their evaluation and treatment as well as her results of PFT, where assessment and plan was reviewed and explained, some educational material about his pulmonary problems was given with the discharge summary. All questions were answered.The above assessment and plan was discussed with Aruna Moncada MD ( ). Diagnostic testing results wereavailable for review during the discussion. Based on physical exam, symptomatology, tests requested and baseline pulmonary evaluation/disease, I instructed the patient to follow-up with in 4 months and as needed in the interim if other concerns/worsening symptoms. - Follow up with Sabrina Mauricio MD for the other co-morbidities. Thanks Sabrina Mauricio MD for allowing me to have the opportunity to assist in the care of this patient. I have obtained verbal consent from Dana Mcmahon prior to the recording. I have advised Dana Stevo Mcmahon that she may refuse the recording and require the recording to be turned off at any time during this encounter. documented in this encounter Plan of Treatment Upcoming Encounters Date Type Department Care Team (Late st Contact Info) Description 11/24/2024 7:30 AM EST Hospital Encounter [facility] [address] [place] [phone] Ganesh Johnson MD [address] [address] 11/24/2024 7:30 AM EST - 11/24/2024 11:00 AM EST Surgery [facility] Main [place] [address] [place] [phone] Ganesh Johnson MD [address] [address] [place] right middle lobe wedge ? lobectomy [12370 (CPT??) +4 more] 12/10/2024 11:00 AM EDT Office Visit Thoracic Surgery [facility] [address] [facility] [address] [place] [phone] Elizabeth Martinez PA [address] [facility], [address] [place] [address] 01/06/2025 11:00 AM EDT Office Visit Adult Medicine [facility] [address] [place] [address] Sabrina Mauricio MD [address] [place], [place] [phone] 03/01/2025 9:30 AM EDT Office Visit Pulmonolgy [facility] [address] [facility] [address] [place] [phone] Sandra Person, AUTOMOTIVE SERVICE PROFESSIONAL 175 [facility] [address] [place] [address] Scheduled Procedures Name Priority Associated Diagnoses Date/Ti me THORACOSCOPY ROBOT TWO Mass of middle lobe of right lung 11/24/2024 7:30 AM EST documented as of this encounter Visit Diagnoses Diagnosis Lung nodules- Primary Other diseases of lung, not elsewhere classified Mass of middle lobe of right lung Mass of middle lobe of right lung documented in this encounter Care Teams Head Teacher Relationship Specialty Start Date End Date Sabrina Mauricio MD [address] [place] [address] PCP - General 06/14/11 documented as of this encounter
--- OUTSIDE RECORDS SUMMARY | 2024-11-18 12:30 | XMS_ITS | Encounter Summary ---
Author Organization [facility] Address [address] [place] [address] Care Team Providers Care Outside Collector Name Role Phone Sabrina Mauricio MD Primary Care Provider Reason for Visit * Therapy (Routine) - Closed Specialty Diagnoses / Procedures Referred By Contac t Referred To Contact Pulmonology Diagnoses Mass of middle lobe of right lung Procedures Pulmonary function testing: Carbon Monoxide Diffusing Capacity, Nitrogen Wash Out, Spirometry with Bronchodilator, Flow Volume Loop, Maximum Voluntary Ventilation, Vital Capacity Test, Spirometry Sandra Person NP [address] [address] Phone: tel: [facility] [address] [address] Phone: tel: fax: Referral ID Status Reason Start Date Expiration Date Visits Re quested Visits Authorized [id number] Closed 10/07/2024 10/07/2025 1 1 Encounter Details Date Type Department Care Team (Latest Contact Info) Description 10/28/2024 9:00 AM EST [facility] [address] [address] Mass of middle lobe of right lung Social History Tobacco Use Types Packs/Day Years Used Date Smoking Tobacco: Former Cigarettes 0.5 20.3 0 09/30/1979 - 01/29/2000 Smokeless Tobacco: Never Alcohol Use Standard Drinks/Week Comments No 0 (1 standard drink = 0.6 oz pur e alcohol) Comments Unknown Sex and Gender Information Value Date Recorded Sex Assigned at Female 08/12/2024 4:06 PM EST Legal Sex Female 1:24 AM EST Gender Identity Female 08/12/2024 4:06 PM EST Sexual Orientation Straight 08/12/2024 4: 06 PM EST documented as of this encounter Progress Notes * Wayne Nunez - 10/28/2024 9:00 AM EST PFT performed documented in this encounter Plan of Treatment Upcoming Encounters Date Type Department Care Team (Late st Contact Info) Description 11/24/2024 7:30 AM EST Hospital Encounter [facility] Main [place] [address] [place] [address] Ganesh Johnson MD [address] [address] 11/24/2024 7:30 AM EST - 11/24/2024 11:00 AM EST Surgery [facility] Main [place] [address] [place] [address] Ganesh Johnson MD [address] [address] [place] right middle lobe wedge ? lobectomy [15431 (CPT??) +4 more] 12/10/2024 11:00 AM EDT Office Visit Thoracic Surgery - [place] [address] [facility] [address] [place] [phone] Elizabeth Martinez PA 299 [facility], [address] [place] [phone] 01/06/2025 11:00 AM EDT Office Visit Adult Medicine [facility] [address] [place] [address] Sabrina Mauricio MD [address] [place] [phone] 03/01/2025 9:30 AM EDT Office Visit Pulmonolgy - [place] [address] [place] [phone] Sandra Person, JASIEL [address] [place] [address] Scheduled Procedures Name Priority Associated Diagnoses Date/Ti me THORACOSCOPY ROBOT TWO Mass of middle lobe of right lung 11/24/2024 7:30 AM EST documented as of this encounter Procedures Procedure Name Priority Date/Time Associated Diagnosis Comments PULMONARY FUNCTION TESTING Routine 10/28/2024 9:02 AM EST Mass of middle lobe of right lung documented in this encounter Results * Pulmonary function testing: Carbon Monoxide Diffusing Capacity, Nitrogen Wash Out, Spirometry with Bronchodilator, Flow Volume Loop, Maximum Voluntary Ventilation, Vital Capacity Test, Spirometry (10/28/2024 9:02 AM EST) Impressions Eloina Sepulveda MD - 10/28/2024 9:02 AM EST FEV1/FVC 83%. FEV1 2.34 at 96%. FVC 88%. No bronchodilator response. ?? TLC 91%. RV 85%. DLCO 72% (adjusted 85%). No obstruction. ??No restriction. ??And no decrease in diffusion. Sandra Person PHYSICIAN ASSISTANT SURGERY PFT ORDERABLES Final R esult documented in this encounter Visit Diagnoses Diagnosis Mass of middle lobe of right lung Mass of middle lobe of right lung documented in this encounter Care Teams Outside Collector Relationship Specialty Start Date End Date Sabrina Mauricio MD [address] [place] [address] PCP - General 06/14/11 documented as of this encounter
--- NOTE | 2024-11-18 12:31 | A.OFFVIS_ITS ---
Vital Signs 11/18/24 12:40 Height 5 ft 5 in Weight 184 lb 15.485 oz BMI 30.8 BP 142/84 H Blood Pressure Location Rt brachial Position Sitting Pulse 66 Pulse Source Pulse Oximeter Pulse Oximetry (%) 99 Oxygen Delivery Method Room Air Intake Visit Reasons: DM Intake Note: Patient presents for DM. Allergies azathioprine Adverse Reaction (Intermediate, Verified 11/18/24 12:35) Unknown ciprofloxacin [From Cipro HC] Adverse Reaction (Intermediate, Verified 11/18/24 12:35) N/V doxycycline Adverse Reaction (Intermediate, Verified 11/18/24 12:35) Gastrointestinal Upset hydrocortisone [From Cipro HC] Adverse Reaction (Intermediate, Verified 11/18/24 12:35) N/V mycophenolate mofetil [From CellCept] Adverse Reaction (Intermediate, Verified 11/18/24 12:35) Rash Penicillins Adverse Reaction (Intermediate, Verified 11/18/24 12:35) Rash sulfamethoxazole [From Bactrim] Adverse Reaction (Verified 11/18/24 12:35) N/V trimethoprim [From Bactrim] Adverse Reaction (Verified 11/18/24 12:35) N/V HPI Comments Details: Patient is a 69-year-old female with hypertension, hyperlipidemia, 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 Leigh 03/04/2024. At that time she was reporting chest heaviness and shortness of breath with activity especially going up and down the stairs for the month prior to the visit. With regards to her muscle pains or weakness she had not noticed any change there was no dysphagia and there was no rash or joint pains. Had CT Chest done at [facility] which showed a 2.4 cm mass suspicious for cancer. Sh cristy had a PET scan which showed a lesion on her liver and in her thyroid but those 2 were noncancerous. She is scheduled for resection soon. Today, Patient tearful about her cancer diagnosis. With respect to her muscles she denies any muscle weakness, rashes. Rheumatologic History: Onset 09/2016; prox muscles weak, skin rashes, abnormal nailfold, 09/2017. HATTIE positive; anti-AR-2 positive. EMG positive for myopathy Negative anti DNA, anti-TONY, Sjogren antibodies Prednisone started 02/14; azathioprine added in 03/17 Azathioprine held due to oral ulcers 04/16 CPK normalized, 04/16 MMF not tolerated 08/17 MTX started 09/16 -partial response, still requiring ~ 15-20 mg prednisone. IVI/19, 04/17, 05/18, 06/18:07/18, 50 gm daily X 3) 08/18, 09/17(50 gm daily X 2) and every 30 days MTX held due to LFT elevations - 02/16 - monthly IVIG continued December 2020: IVIG held because she had an abdominal abscess. Subsequent rise in CPK to greater than 9000 and return of weakness. 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 Diverticulitis Surgical History History of total knee replacement (TKR) H/O nasal septoplasty History of partial surgical removal of colon H/O tubal ligation H/O: hysterectomy History of tonsillectomy H/O colonoscopy Family History Mother Arthritis Hypertension Elevated cholesterol Brother Elevated cholesterol Myelofibrosis Diabetes Father Stomach cancer Maternal Aunt Gynecologic cancer Social History Household Members: Spouse and Children Alcohol intake: current Alcohol intake frequency: holidays/special occasions only Patient Tobacco Use Status: Former Tobacco user Current occupational status: employed 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 Review of Systems Const Details: Review of Systems Constitutional: Denies fever, chills, weight loss ENT: Denies vision changes, eye pain or eye redness, dental caries, dry mouth GI: Denies nausea, vomiting, diarrhea, abdominal pain, change in BM Pulm: Denies SOB, MENDOZA, hemoptysis, wheezing Cards: Denies chest pain, palpitations Skin: Denies Raynaud's, rash, nail changes, photosensitivity, MOTORCYCLE DELIVERER: Denies headaches, weakness, paresthesias, recurrent falls MSK: as per HPI All other systems reviewed and are unremarkable except noted above Physical Exam Vital signs reviewed Physical Examination CONSTITUITIONAL Patient alert and cooperative. Well appearing and in no apparent painful distress HEENT Conjunctiva and sclera clear. ?Pupils equal round and reactive to light. ?No lymphadenopathy. ? CHEST/RESPIRATORY SYSTEM Normal respiratory effort and able to speak in complete sentences. ?Clear to auscultation bilaterally. ?No crackles, rales, rhonchi, wheezes heard. CARDIAC SYSTEM Regular rate and rhythm. ?S1 and S2 heard no murmurs. ?Radial pulses intact bilaterally MSK Hands: ?Good financial processing clerk strength bilaterally. No deformities noted. ?No synovitis noted to the MCPs, PIPs or DIPs. ?No tenderness to palpation of these joints. Heberden's nodes Wrists: ?Full range of motion at the wrists without pain. ?No tenderness to palpation or synovitis noted to the wrists. Elbows: Full range of motion without pain. No tenderness, weakness, swelling, increased warmth or erythema. Shoulders: Full range of motion without pain. No tenderness, weakness, swelling, increased warmth or erythema. Hips: Full range of motion without pain. Hip bursa: No tenderness to palpation Knees: ?Full range of motion. ?No tenderness, swelling, increased warmth or erythema.?No effusion or crepitations. Bilateral surgical scars noted over the anterior knees Ankles: Full range of motion. ?No tenderness, swelling, increased warmth or erythema.? Feet: ?Negative squeeze test. ?No tenderness to palpation or swelling of the MTPs. Tender points:?No tenderness to palpation of the bilateral trapezius, supraspinatus, greater trochanters, anterior costochondral junctions, bilateral gluteal areas, bilateral suboccipital muscle insertions Right Left Neck 5 5 Shoulder abduction 5 5 Shoulder adduction 5 5 Elbow flexion 5 5 Elbow extension 5 5 Wrist flexion 5 5 Wrist extension 5 5 Co Founder And Chief Strategy Officer strength 5 5 Hip flexion 5 5 Knee flexion 5 5 Knee extension 5 5 Ankle dorsiflexion 5 5 Ankle plantarflexion 5 5 SKIN Skin intact without rashes. Results Reviewed Results Reviewed: Laboratory Tests 08/14/24 11/17/24 08:12 08:57 WBC 8.5 8.2 RBC 3.95 L 4.07 L Hgb 11.6 L 11.8 L Hct 34.0 L 35.9 L Plt Count 658 H D 620 H ESR 53 H 17 Sodium 138 143 Potassium 4.0 4.0 Chloride 105 107 Carbon Dioxide 30 H 25 BUN 24 H 18 H Creatinine 0.91 0.82 Total Bilirubin 0.6 0.4 AST 47 H 28 ALT 36 H 24 Alkaline Phosphatase 94 90 Total Creatine Kinase 239 H 73 C-Reactive Protein 0.19 0.18 Total Protein 8.2 H 7.6 Albumin 4.0 4.1 Assessment & Plan Assessment & Plan (1) Dermatomyositis: Comment: onset 09/2016; prox muscles weak, skin rashes, abnormal nailfold, 09/2017. HATTIE positive; anti-AR-2 positive. EMG positive for myopathy Negative anti DNA, anti-TONY, Sjogren antibodies Prednisone started 02/14; azathioprine added in 03/17 Azathioprine held due to oral ulcers 04/16 CPK normalized, 04/16 MMF not tolerated 08/17 MTX started 09/16 -partial response, still requiring ~ 15-20 mg prednisone. IVI/19, 04/17, 05/18, 06/18:07/18, 50 gm daily X 3) 08/18, 09/17(50 gm daily X 2) and every 30 days MTX held due to LFT elevations - 02/16 - monthly IVIG continued December 2020: IVIG held because she had an abdominal abscess. Subsequent rise in CPK to greater than 9000 and return of weakness. 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 Mi 2 antibodies are very favorable dermatomyositis antibodies and are not associated with malignancy or ILD She is currently in remission on her IVIG dosage every 5 weeks. We will continue the every 5 week dosage for now. Okay to hold the IVIG hali procedure Plan - IVIG 40g x 2 doses every 5 weeks - RTC 6 months - Labs before visit: CBC, CMP, ESR, CRP, CK, aldolase (2) Osteopenia: Comment: DEXA 08/2023 left hip T-score -1.2. Low FRAX score Code(s): M85.80 - Other specified disorders of bone density and structure, unspecified site Category: Medical Qualifiers: Osteopenia location: hip Laterality: left Qualified Code(s): M85.852 - Other specified disorders of bone density and structure, left thigh Plan: #Osteopenia Patient with osteopenia based on left hip T-score with a low FRAX score. Due for DEXA scan this year but given all of the current issues with the patient I think it is fair for us to hold off on repeating it for now. Plan - DEXA scan at some time this year - Ensure vit D and Ca supplementation (3) longterm current use of immunosuppressive drug: Code(s): Z79.899 - Other intermodal customer service (current) drug therapy Category: Medical Plan: #Long-term use of IVIG Discussed with this patient the risks and benefits of IVIG use to the management of the rheumatic condition Benefits include improved disease control and maintenance of remission Risks include anaphylaxis, blood clots, transfusion related acute lung injury, hemolytic reaction, fluid overload, heart problems Plan I spent 30 minutes reviewing the record and labs, taking a history, examining the patient, discussing the treatment plan and documenting in the medical record Orders: Orders Comprehensive Met. Panel 6 Months M33.90 - Dermatopolymyositis, unspecified, organ involvement unspecified Complete Blood Count Auto Diff 6 Months M33.90 - Dermatopolymyositis, unspecified, organ involvement unspecified C Reactive Protein 6 Months M33.90 - Dermatopolymyositis, unspecified, organ involvement unspecified Creatine Kinase Total Today M33.90 - Dermatopolymyositis, unspecified, organ involvement unspecified Aldolase Today M33.90 - Dermatopolymyositis, unspecified, organ involvement unspecified Erythrocyte Sedimentation Rate 6 Months M33.90 - Dermatopolymyositis, unspecified, organ involvement unspecified Coding Level of Care Code Est Pt Level 4 (57192) Complex EM visit Add On G2211 Diagnoses Dermatomyositis M33.90 Osteopenia of left hip M85.852 Osteopenia location: hip Laterality: left longterm current use of immunosuppressive drug Z79.899
--- OUTSIDE RECORDS SUMMARY | 2024-11-18 12:31 | XMS_ITS | Encounter Summary ---
Author Organization [facility] Address [address] [place] [address] Care Team Providers Care Airline Stewardess Name Role Phone Sabrina Mauricio MD Primary Care Provider [phone] Reason for Visit * Reason Comments Lung Nodule Encounter Details Date Type Department Care Team ([facility] st Contact Info) Description 11/05/2024 9:00 AM EST Consult Thoracic Surgery - [place] 299 [facility] [address] [place] [phone] Ganesh Johnson MD [address] [facility] [address] [place] [address] Mass of middle lobe of right lung (Primary Dx); Neoplasm Social History Tobacco Use Types Packs/Day Years Used Date Smoking Tobacco: Former Cigarettes 0.5 20.3 0 09/30/1979 - 01/29/2000 Smokeless Tobacco: Never Tobacco Cessation:Counseling Given: Not Answered Alcohol Use Standard Drinks/Week Comments No 0 (1 standard drink = 0.6 oz pur e alcohol) Comments No Sex and Gender Information Value Date Recorded Sex Assigned at Female 08/12/2024 4:06 PM EST Legal Sex Female 1:24 AM EST Gender Identity Female 08/12/2024 4:06 PM EST Sexual Orientation Straight 08/12/2024 4: 06 PM EST documented as of this encounter Last Filed Vital Signs Vital Sign Reading Time Taken Comments Blood Pressure 177/94 11/05/2024 9:05 AM EST Pulse 90 11/05/2024 9:03 AM EST Temperature 36.6 ??C (97.9 ??F) 11/05/2024 9:03 AM ES T Respiratory Rate 17 11/05/2024 9:03 AM EST Oxygen Saturation 97% 11/05/2024 9:03 AM EST Inhaled Oxygen Concentration - - Weight 86.3 kg (190 lb 4.8 oz) 11/05/2024 9:03 A M EST Height 165.1 cm (5' 5 ) 11/05/2024 9:03 AM EST Body Mass Index 31.67 11/05/2024 9:03 AM EST documented in this encounter Progress Notes * Ganesh Johnson MD - 11/05/2024 11:00 AM ESTAssociated Problem(s): Mass of middle lobe of right lung 69 woman former smoker with a 2.9 cm partially spiculated nodule in the right middle lobe medial segment. Discussion with her about the findings of her CAT scan, PET scan, pulmonary function testing as described in HPI. We also talked about PET scans and how they work. Next, we talked about pulmonary nodules in general and how their size, shape, and growth over time affect her level of suspicion for malignancy. Given the size of this nodule and its shape, I do have a moderate to high suspicion for malignancy. I also went over the diagnosis, staging, and treatment of lung cancer which she seemed understand. Finally, we talked about options of continued observation versus navigational biopsy versussurgical resection. After discussing the risks and benefits of these options she opted for surgical resection which will be a occasional bronchoscopy with dye marking, da Vince right middle lobe wedge possible lobectomy. All questions were answered. * Ganesh Johnson MD - 11/05/2024 9:00 AM EST NEW PATIENT CONSULTATION Name: Dana Mcmahon : 1955 Date of Visit: 11/05/2024 Referring Physician: Sandra Person,* Primary Care Physician: Sabrina Mauricio MD Chief Complaint Patient presents with Lung Nodule HPI Ms. Mcmahon is a 69 y.o. female who presents for outpatient consultation regarding the management of right middle lobe lung mass. 69-year-old woman who initially had a CT scan of the chest done on 09/16/2024 which showed a 2.9 irregular/spiculated right middle lobe pulmonary nodule medial segment. An MRI was done of the abdomento evaluate a liver nodule on 09/27/2024 which showed the liver lesion to be a cyst. A PET scan wasdone on 10/09/2024 which showed SUV max of 2.8 in the nodule without increased PET uptake elsewhere in the chest or outside of the chest. She also had pulmonary function testing on 10/28/2024 which showed an FEV1 of 96% of predicted and a DLCO VA of 85% predicted. Biopsy of a thyroid nodule on 09/26/2024 which was benign. She reports feeling generally good health denies unintentional weight loss fevers or chills. She does report fatigue and decreased appetite. He denies chest pain cough or hemoptysis. She does report shortness of breath with activity but she can go up a flight of stairs without stopping for parking lot without difficulty today. Past Medical History: Diagnosis Date Allergic rhinitis, cause unspecified DX:Allergic rhinitis, cause unspecified Anemia, unspecified DX:Anemia, unspecified Dermatomyositis (CMS/HCC) DX:Dermatomyositis (HCC) Diverticulitis DX:Diverticulitis Diverticulitis 08/30/2020 DX:Diverticulitis; COMMENT: 07/19 with abscess DJD (degenerative joint disease) of knee 01/14/2014 DX:DJD (degenerative joint disease) of knee Essential hypertension, benign DX:Essential hypertension, benign Headache(784.0) DX:Headache(784.0) Heartburn DX:Heartburn High cholesterol DX:High cholesterol Hypertension DX:Hypertension Osteopenia 09/11/2023 DX:Osteopenia; COMMENT: 09/21 T score spine +0.5 hip -1.2 FRAX score 13% 10 year fracture risk Other and unspecified hyperlipidemia DX:Other and unspecified hyperlipidemia Total knee replacement status 02/06/2017 DX:Total knee replacement status; COMMENT: Left TKR 12/14 Tubular adenoma 03/05/2012 DX:Tubular adenoma @ALL@ Current Outpatient Medications Medication Sig Dispense Refill atenoloL (TENORMIN) 50 mg tablet Take 1.5 tablets (75 mg total) by mouth 1 (one) time each day. calcium citrate/vitamin D3 (CALCIUM CITRATE + D ORAL) Take by mouth. hydroCHLOROthiazide (HYDRODIURIL) 25 mg tablet Take 1 tablet (25 mg total) by mouth 1 (one) time each day. plecanatide (Trulance) 3 mg tablet Take 1 tablet (3 mg total) by mouth 1 (one) time each day. rosuvastatin (CRESTOR) 10 mg tablet Take 1 tablet (10 mg total) by mouth 1 (one) time each day. acetaminophen (TYLENOL) 325 mg tablet Take 2 tablets (650 mg total) by mouth. docusate sodium (COLACE) 100 mg capsule Take 1 capsule (100 mg total) by mouth. (Patient not taking: Reported on 10/30/2024) glycerin (adult) suppository Insert 1 suppository (2 g total) into the rectum. (Patient not taking:Reported on 10/30/2024) immune globulin, human, (Gammagard S-D, IgA < 1 mcg/mL,) infusion Infuse into a venous catheter. latanoprost (XALATAN) 0.005 % ophthalmic solution Administer 1 drop into affected eye(s). magnesium hydroxide (Milk of Magnesia) 400 mg/5 mL suspension Take by mouth. (Patient not taking: Reported on 10/30/2024) omeprazole (PriLOSEC) [address] capsule Take 1 capsule (20 mg total) by mouth. No current facility-administered medications for this visit. 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 Family History Problem Relation Name Age of Onset Cancer Father Arthritis Mother hypertension, elevated cholesterol, TIA Hyperlipidemia Brother hypertension, myelofibrosis Other (Other: stomach cancer) Father 70.00 Other (Other: manager ambulatory cancer) Aunt at age 99 Other (Other: hit by train) Brother 24 Diabetes Brother Breast cancer Neg Hx Colon cancer Neg Hx Prostate cancer Neg Hx Review of Systems General - Negative for: weight loss/gain, fatigue, fever, chills, weakness, difficulty sleeping Head - Negative for: headache, trauma Eyes - Negative for: acute vision change, blurred vision, double vision, eye pain, conjunctival erythema, eyelid pain/swelling/erythema Ears - Negative for: acute change in hearing, tinnitus, ear pain, ear drainage Nose - Negative for: nasal discharge, nosebleed, itching, sinus pain Mouth/Throat - Negative for: sore throat, swollen throat, dry mouth, hoarseness, dysphagia, odynophagia, oral lesions Neck - Negative for: pain, stiffness, swelling, mass/lumps, swollen glands Cardiovascular - Negative for: chest pain/pressure, exertional chest pain, palpitations, lightheadedness, dizziness, orthopnea, extremity edema Respiratory -as above Gastrointestinal - Negative for: abdominal pain, abdominal distention, bloating, nausea, vomiting, early satiety, diarrhea, constipation, BRBPR, melena, poor appetite Genitourinary - Negative for: dysuria, hematura, urinary frequency, urinary urgency, incontinence Musculoskeletal - Negative for: muscle or joint pain, stiffness, back pain, joint swelling or erythema Neurologic - Negative for: dizziness, seizures, weakness, numbness, tingling, tremor, dysarthria, facial droop Hematologic - Negative for: easy bruising, easy bleeding, ecchymosis, petechiae Endocrine - Negative for: polyuriua, polydipsia, heat or cold intolerance Lymphatic - Negative for: swollen nodes, unexplained lumps/bumps in neck/axillae/groin Skin - Negative for: rashes, lumps, itching, dryness, color change, hair/nail changes Psychiatric - Negative for: depression, anxiety, nervousness, stress, memory change, SI/HI Physical Exam Vitals: 11/05/24 0903 11/05/24 0905 BP: (!) 176/99 (!) 177/94 BP Location: Left arm Right arm Patient Position: Sitting Sitting BP Cuff Size: Adult long Adult long Pulse: 90 Resp: 17 Temp: 36.6 ??C (97.9 ??F) TempSrc: Temporal SpO2: 97% Weight: 86.3 kg (190 lb 4.8 oz) Height: 1.651 m (65 ) General: Patient is sitting comfortably in no acute distress, well developed, well nourished Head: Normocephalic, atraumatic, symmetric Eyes: Sclera anicteric, eyelids without edema or erythema, +EOMS intact ENT: Oral mucosa and tongue are moist without lesions or exudates Neck: Soft, supple, symmetric, trachea midline, no crepitus, no mass visualized or palpated Cardiovascular: Regular rate and rhythm, no murmur/rubs/gallops, BUE and BLE without edema, no calftenderness bilaterally Respiratory: Lungs CTAB, breathing nonlabored, speaking in full sentences, on room air. No use of accessory muscles. No obvious chest wall abnormality or deformity Gastrointestinal: Soft, non-tender, non-distended, +normoactive bowel sounds. Lymphatic: no cervical, supraclavicular, infraclavicular, or other lymphadenopathy noted Neurological: Alert and oriented x 3, neurologic exam is grossly normal Psychiatric: No agitation, appropriate affect Pathology None Micro / Labs Reviewed Radiology Reviewed and interpreted by me directly as above I personally viewed the following imaging studies, in addition to reviewing the dictated report from the reading radiologist Assessment/Plan Problem List Items Addressed This Visit Respiratory Mass of middle lobe of right lung - Primary 69 woman former smoker with a 2.9 cm partially spiculated nodule in the right middle lobe medial segment. Discussion with her about the findings of her CAT scan, PET scan, pulmonary function testing as described in HPI. We also talked about PET scans and how they work. Next, we talked about pulmonary nodules in general and how their size, shape, and growth over time affect her level of suspicion for malignancy. Given the size of this nodule and its shape, I do have a moderate to high suspicion for malignancy. I also went over the diagnosis, staging, and treatment of lung cancer which she seemed understand. Finally, we talked about options of continued observation versus navigational biopsy versussurgical resection. After discussing the risks and benefits of these options she opted for surgical resection which will be a occasional bronchoscopy with dye marking, da Vince right middle lobe wedge possible lobectomy. All questions were answered. Relevant Orders Case Request Operating Room: Da Vince right middle lobe wedge possible lobectomy (Completed) NPO Instructions Prior to Day of Procedure Basic metabolic panel CBC and differential Prothrombin time with INR Activated partial thromboplastin time Type and screen ECG 12 lead - Procedural (No Charge) Other Visit Diagnoses Neoplasm Relevant Orders Prothrombin time with INR Activated partial thromboplastin time Total time spent on date of this encounter: 64 minutes. Reviewing patient's chart, Independently reviewing current/past imaging, Visit with the patient, Counseling and educating patient/family on diagnosis, Discussion of ongoing management, Documenting clinical information in the patient's medical record, and Discussion of surgical intervention and/or biopsy Ganesh Johnson MD on 11/05/2024 at 11:06 AM EST CC: RosemarieSandra dye,* Sabrina Mauricio MD documented in this encounter Plan of Treatment Upcoming Encounters Date Type Department Care Team (Late st Contact Info) Description 11/24/2024 7:30 AM EST Hospital Encounter Main OR [address] [place] [address] Ganesh Johnson MD [address] [address] 11/24/2024 7:30 AM EST - 11/24/2024 11:00 AM EST Surgery Main OR [address] [place] [address] Ganesh Johnson MD [address] [address] Da Vince right middle lobe wedge ? lobectomy [[address] (CPT??) +4 more] 12/10/2024 11:00 AM EDT Office Visit Thoracic Surgery - [place] 299 [facility] [address] [place] [phone] Elizabeth Martinez PA 299 [facility], [address] [place] [address] 01/06/2025 11:00 AM EDT Office Visit Adult Medicine [facility] [address] [place] [phone] Sabrina Mauricio MD [address] [place] [address] 03/01/2025 9:30 AM EDT Office Visit Pulmonolgy - [place] 175 [facility] [address] [place] [phone] Sandra Person, JASIEL 175 [facility] [address] [place] [address] Pending Results Name Type Priority Associated Diagnoses Date /Time ECG 12 lead - Procedural (No Charge) ECG Routine Mass of middle lobe of right lung 11/17/2024 10:44 AM EST Scheduled Procedures Name Priority Associated Diagnoses Date/Ti me THORACOSCOPY ROBOT TWO Mass of middle lobe of right lung 11/24/2024 7:30 AM EST documented as of this encounter Results * Type and screen (11/17/2024 11:00 AM EST) Pathologist [facility] 11/17/2024 1:07 PM EST [facility] Rh Type Negative 11/17/2024 1:07 PM EST [facility] Antibody Screen Negative 11/17/2024 1:07 PM EST [facility] Blood Venous blood specimen / Unknown Venipuncture / Unknown 11/17/2024 11:00 AM EST 11/17/2024 11:16 AM EST Ganesh Johnson MD LAB BLOOD BANK TEST ORDERABLES F inal Result [facility] [address] [place] [address], * Activated partial thromboplastin time (11/17/2024 11:00 AM EST) aPTT 29.0 24.1 - 39.3 sec LAB COAGULATION METHOD 11/17/2024 11:40 AM EST [facility] Blood Venous blood specimen / Unknown Venipuncture / Unknown 11/17/2024 11:00 AM EST 11/17/2024 11:16 AM EST us Ganesh Johnson MD LAB BLOOD ORDERABLES Final Resul t [facility] [address] [place] [address], [place] [phone] * Prothrombin time with INR (11/17/2024 11:00 AM EST) Protime 11.3 10.6 - 13.9 sec LAB COAGULATION METHOD 11/17/2024 11:40 AM EST [facility] INR 0.9 LAB COAGULATION METHOD 11/17/2024 11:40 AM [facility] Blood Venous blood specimen / Unknown Venipuncture / Unknown 11/17/2024 11:00 AM EST 11/17/2024 11:16 AM EST us Ganesh Johnson MD LAB BLOOD ORDERABLES Final Resul t Performing Organization Address [facility]/ZIP Co de Phone Number [facility] [address] [place] [address], [place] [phone] * (ABNORMAL) Basic metabolic panel (11/17/2024 11:00 AM EST) Pathologist [facility] Sodium 138 133 - 145 mmol/L LAB CHEMISTRY METHOD 11/17/2024 1:14 PM [facility] Potassium 4.6 3.5 - 5.5 mmol/L LAB CHEMISTRY METHOD 11/17/2024 1:14 PM [facility] Chloride 105 96 - 110 mmol/L LAB CHEMISTRY METHOD 11/17/2024 1:14 PM [facility] CO2 27 21 - 32 mmol/L LAB CHEMISTRY METHOD 11/17/2024 1:14 PM [facility] Anion Gap 6 3 - 11 LAB CHEMISTRY METHOD 11/17/2024 1:14 PM [facility] Glucose 105(H) 70 - 100 mg/dL LAB CHEMISTRY METHOD 11/17/2024 1:14 PM [facility] BUN 19 5 - 25 mg/dL LAB CHEMISTRY METHOD 11/17/2024 1:14 PM [facility] Creatinine 0.84 0.50 - 1.10 mg/dL LAB CHEMISTRY METHOD 11/17/2024 1:14 PM [facility] eGFR 76 >=60 mL/min/1. 73m2 LAB CHEMISTRY METHOD 11/17/2024 1:14 PM [facility] Comment:Calculation based on the??Chronic Kidney Disease Epidemiology Collaboration (CKD-EPI) equation refit??without adjustment for race. BUN/Creatinine Ratio 22.6 LAB CHEMISTRY METHOD 11/17/2024 1:14 PM [facility] Calcium 9.7 8.5 - 10.5 mg/dL LAB CHEMISTRY METHOD 11/17/2024 1:14 PM [facility] Blood Venous blood specimen / Unknown Venipuncture / Unknown 11/17/2024 11:00 AM EST 11/17/2024 11:16 AM EST us Ganesh Johnson MD LAB BLOOD ORDERABLES Final Resul t [facility] [address] [place] [address], documented in this encounter Visit Diagnoses Diagnosis Mass of middle lobe of right lung- Primary Neoplasm Neoplasm of unspecified nature, site unspecified Mass of middle lobe of right lung documented in this encounter Orders Nursing Count Last Ordered Date First Orde red Date DIET INSTRUCTIONS TO NURSING 1 11/05/2024 Case Request Count Last Ordered Date First Orde red Date CASE REQUEST OPERATING ROOM 1 11/05/2024 documented in this encounter Care Teams Airline Stewardess Relationship Specialty Start Date End Date Sabrina Mauricio MD [address] [place] [id number] PCP - General 06/14/11 documented as of this encounter
--- OUTSIDE RECORDS SUMMARY | 2024-11-18 12:31 | XMS_ITS | Encounter Summary ---
Author Organization [facility] Address [address] [place] [address] Care Team Providers Care Nitrocellulose Operator Name Role Phone Sabrina Mauricio MD Primary Care Provider [phone] Encounter Details Date Type Department Care Team (Late st Contact Info) Description 11/05/2024 Telephone Thoracic Surgery - [place] 299 [facility] [address] [place] [phone] Ganesh Johnson MD 299 [facility] [address] [place] [address] Social History Tobacco Use Types Packs/Day Years [...] as of this encounter Progress Notes * Teresita Villa - 11/18/2024 9:25 AM EST Spoke to patient and she had her pre op visit but has not heard from Anesthesia yet and was concerned about what medications to hold on the day of surgery. I reviewed her medications with her and didadvise that she will most likely be holding her HCTZ on the am of her procedure. Patient said she does have an issue waking up from anesthesia and that she usually vomits. She said in the past they have given her something to help before she is woken up. * Vicky Jeffers - 11/11/2024 9:56 AM EST Spoke with patient for a friendly reminder of her surgery date and time 11/24/24 7:30 am arrival time 6:00 am PAT , POST OP All question where answer. * Vicky Jeffers - 11/06/2024 8:24 AM EST I spoke with Sury from Rheumatology, the medical care administrator for Dr. Hairston, and she confirmed thatthey will delay the patient's infusion to prioritize the surgery. The patient is not on any medication or injections other than the infusion at this time. Sury also mentioned that the surgery willtake precedence over the infusion, and they will contact the patient to reschedule the infusion appointment. * Vicky Jeffers - 11/05/2024 3:13 PM EST I spoke with the patient today and provided her with the surgery date and pat and post-appointment details for her surgery with Dr. Johnson. The patient mentioned that she receives her IVIG infusion for her autoimmune disease at her rheumatology appointment. She is scheduled to see Dr. Hairston on 11/26/24. I called the rheumatology office today and spoke with the warehouse specialist, explaining that Dr. Johnson is concerned about the patient's case due to a possible cancer diagnosis and would like to proceed with surgery this month. The patient mentioned that the rheumatology office advised her she cannot have the surgery because she must wait two weeks before and two weeks after her infusion. I left a message for the medical care administrator or nurse to confirm with the provider whether the patient can delay her infusion to proceed with surgery due to the mass in her right lung, or if we should consider postponing the surgery until after her scheduled infusion on 11/26/24. They will be reachingout, and I have also faxed over the clinical note for the provider to review. Rheumatology office number [phone] Please advice * Vicky Jeffers - 11/05/2024 3:08 PM EST Patient is booked for surgery on 11/24/2024 at 7:30 am arrival time 6:00 am Pat 11/17/24 at 11:00 am Post-op 12/10/24 at 11:00 am w/ Cecile Martinez No other testing needed Prior auth no needed bcbs Patient will be called today documented in this encounter Plan of Treatment Upcoming Encounters Date Type Department Care Team (Late st Contact Info) Description 11/24/2024 7:30 AM EST Hospital Encounter [facility] Main OR [address] [place] [address] Ganesh Johnson MD [address] [address] 11/24/2024 7:30 AM EST - 11/24/2024 11:00 AM EST Surgery [facility] Main OR [address] [place] [phone] Ganesh Johnson MD [address] [address] Da Vince right middle lobe wedge ? lobectomy [268[address] (CPT??) +4 more] 12/10/2024 11:00 AM EDT Office Visit Thoracic Surgery - [place] 299 [facility] [address] [place] [phone] Elizabeth Martinez PA 299 [facility], [address] [place] [address] 01/06/2025 11:00 AM EDT Office Visit Adult Medicine [facility] [address] [place] [phone] Sabrina Mauricio MD [address] [place] [address] 03/01/2025 9:30 AM EDT Office Visit Pulmonolgy - [place] [address] [facility] [address] [place] [address] Sandra Person NP 175 [facility] [address] [place] [address] Scheduled Procedures Name Priority Associated Diagnoses Date/Ti me THORACOSCOPY ROBOT TWO Mass of middle lobe of right lung 11/24/2024 7:30 AM EST documented as of this encounter Visit Diagnoses Not on filedocumented in this encounter Care Teams Nitrocellulose Operator Relationship Specialty Start Date End Date Sabrina Mauricio MD [address] [place] [phone] PCP - General 06/14/11 documented as of this encounter
--- OUTSIDE RECORDS SUMMARY | 2024-11-18 12:31 | XMS_ITS | Clinical Summary ---
Author Organization 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 Name Role Phone Sabrina Mauricio MD Primary Care Provider [phone] Allergies Active Allergy Reactions Criticality Noted Date Comments Azathioprine Medium 01/16/2019 Other Reaction(s): OTHER, Other (See Comments) Itching ??and or sores in mouth ,pt unsure whichh reaction Ciprofloxacin Nausea And Vomiting Medium 04/25/2022 Doxycycline 04/01/2024 Mycophenolate Mofetil Rash 09/17/2018 Other Reaction(s): Rash/Dermatitis Penicillins Hives Medium 09/25/2005 Other Reaction(s): Rash/Dermatitis Sulfamethoxazole-Trimeth oprim Nausea And Vomiting,Nausea Only Medium 09/19/2014 Medications acetaminophen (TYLENOL) 325 mg tablet Take 2 tablets (650 mg total) by mouth. 7 Active atenoloL (TENORMIN) 50 mg tablet Take 1.5 tablets (75 mg total) by mouth 1 (one) time each day. 6 Active docusate sodium (COLACE) 100 mg capsule Take 1 capsule (100 mg total) by mouth. Active glycerin (adult) suppository Insert 1 suppository (2 g total) into the rectum. Active hydroCHLOROthiaz mya (HYDRODIURIL) 25 mg tablet Take 1 tablet (25 mg total) by mouth 1 (one) time each day. 2 Active immune globulin, human, (Gammagard S-D, IgA < 1 mcg/mL,) infusion Infuse into a venous catheter. 2 Active latanoprost (XALATAN) 0.005 % ophthalmic solution Administer 1 drop into affected eye(s). Active omeprazole (PriLOSEC) [address] capsule Take 1 capsule (20 mg total) by mouth. 2 Active plecanatide (Trulance) 3 mg tablet Take 1 tablet (3 mg total) by mouth 1 (one) time each day. 4 Active rosuvastatin (CRESTOR) 10 mg tablet Take 1 tablet (10 mg total) by mouth 1 (one) time each day. 2 Active magnesium hydroxide (Milk of Magnesia) 400 mg/5 mL suspension Take by mouth. Acti ve calcium citrate/vitamin D3 (CALCIUM CITRATE + D ORAL) Take by mouth. Activ e Active Problems Problem Noted Date Diagnosed Date Thyroid nodule 09/25/2024 Lung nodules 09/17/2024 care home current use of immunosuppressive drug 07/16/2024 History of diverticulitis 07/16/2024 Overview (07/16/2024): 2019 - hospitalized at 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 After discussing the risks and benefits of these options she opted for surgical resection which will be a occasional bronchoscopy with dye marking, da Vince right middle lobe wedge possible lobectomy. All questions were answered. Constipation 03/05/2024 Thrombocytosis 03/05/2024 Elevated vitamin B12 level 03/05/2024 S/P partial colectomy 03/04/2024 Osteopenia 09/11/2023 Overview (07/16/2024): 09/21 T score spine +0.5 hip -1.2 FRAX score 13% 10 year fracture risk Obesity (BMI 30.0-34.9) 09/07/2019 Primary open angle glaucoma (POAG) of both eyes 07/15/2018 Dermatomyositis 02/25/2018 Overview (07/16/2024): Skin rash onset 09/2016; muscles weak 09/2017. HATTIE positive; anti-OH-2 positive. EMG positive for myopathy Negative anti DNA, anti-TONY, Sjogren antibodies Prednisone started 02/14; azathioprine added in 03/17 Azathioprine held due to oral ulcers 04/16 CPK normalized, 04/16 Mycophenolate not tolerated 08/17 Methotrexate started 09/16 -partial response, still requiring ~ 15-20 mg prednisone. IVI/19, 04/17, 05/18, 06/18:07/18, 50 gm daily X 3) 08/18, 09/17(50 gm daily X 2) and every 30 days Methotrexate held due to LFT elevations - 02/16 - monthly IVIG continued December 2020: IVIG held because she had an abdominal abscess. Subsequent rise in CPK to greater than 9000 and return of weakness. January 2021: IVIG restarted as well as prednisone Depression 10/14/2017 Anxiety 10/14/2017 Total knee replacement status 02/06/2017 Overview (07/16/2024): Left TKR 12/14; Right TKR 02/13 DJD (degenerative joint disease) of knee 014 Tubular adenoma 03/05/2012 Overview (07/16/2024): 2007 and 2012; repeat 5 years History of parotid gland removal 02/08/2011 Overview (07/16/2024): S/p resection 2009 Varicose veins of both lower extremities 008 Overview (07/16/2024): IMO Update Fall 2015 Hypertension 05/27/2006 Hyperlipidemia 05/27/2006 GERD (gastroesophageal reflux disease) 6 Allergic rhinitis 03/28/2006 Encounters Date Type Department Care Team Description 11/05/2024 9:00 AM EST Consult Thoracic Surgery - [place] [address] [facility] [address] [place] [address] Ganesh Johnson MD Mass of middle lobe of right lung (Primary Dx); Neoplasm 11/05/2024 Telephone Thoracic Surgery - [place] [address] [facility] [address] [place] [address] Ganesh Johnson MD 10/30/2024 11:50 AM EST Office Visit Pulmonolgy - [place] [address] [facility] [address] [place] [phone] Sadnra Person NP Lung nodules (Primary Dx); Mass of middle lobe of right lung 10/28/2024 9:00 AM EST Ancillary Procedure Pulmonolgy - [place] [address] [facility] [address] [place] [phone] Mass of middle lobe of right lung 10/06/2024 10:18 AM EST - 10/06/2024 11:59 PM EST Hospital Encounter [facility] PET Scan [address] [place] [address] Mass of middle lobe of right lung Discharge Disposition: Home or Self Care 10/05/2024 9:06 AM EST - 10/05/2024 11:59 PM EST Hospital Encounter Radiology Department - [address] [address] Encounter for screening mammogram for breast cancer Discharge Disposition: Home or Self Care 10/03/2024 7:37 AM EST - 10/03/2024 11:59 PM EST Hospital Encounter [facility] MRI [address] [place] [address] Liver lesion Discharge Disposition: Home or Self Care 10/02/2024 7:49 AM EST - 10/02/2024 11:59 PM EST Hospital Encounter Radiology Department - [place] [phone] Thyroid nodule Discharge Disposition: Home or Self Care 09/29/2024 2:20 PM EST Consult Pulmonolgy - [place] [address] [facility] [address] [place] [phone] Sandra Person NP Mass of middle lobe of right lung (Primary Dx); Lung nodules 09/27/2024 Telephone Gastroenterology - [place] [address] [facility] [address] [place] [phone] Velia Sesay PA 09/21/2024 6:12 PM EST - 09/21/2024 11:59 PM EST Hospital Encounter Radiology Department - [place] [phone] Thyroid nodule Discharge Disposition: Home or Self Care 09/16/2024 9:40 AM EST - 09/16/2024 11:59 PM EST Hospital Encounter [facility] CT Scan [address] [place] [phone] Lung nodule Discharge Disposition: Home or Self Care from Last 3 Months Immunizations Name Administration Dates Next Due Influenza Quadravalent, MDCK , 0.5ml, preservative free (Flucelvax) 6mo and older 08/11/2021,06/14/2020,08/26/2019,06/11 Influenza trivalent, 0.5mL ( Fluad) 65yo and older 07/10/2023 Influenza trivalent, 0.5mL, preservative free (Fluarix; FluLaval; Fluzone) ages 6mo and older (Afluria) 3 years and older 06/27/2016,06/30/2012,07/13/2010 Influenza, Unspecified 08/11/2021,07/02/2015, PPD Test 03/21/2018 Pneumococcal conjugate 13 va lent (Prevnar 13, PCV13) 2mo and older 03/31/2018 Pneumococcal polysaccharide 23 valent (Pneumovax 23) 2yo and older 11/12/2018 Td Tetanus diptheria (Tdvax) 7yo and older 03/31/2018 Tdap Tetanus diptheria acell ular pertussis (Boostrix; Adacel) 7yo and older 05/12/2008 Surgical History Surgery Date Site/Laterality Comments HYSTERECTOMY PROCEDURE:HYSTERECTOMY TOTAL KNEE ARTHROPLASTY PROCEDURE:REPLACEMENT TOTAL KNEE BILATERAL TUBAL LIGATION PROCEDURE: HISTORICAL TUBAL LIGATION TONSILLECTOMY PROCEDURE: HISTORICAL TONSILLECTOMY NASAL SEPTUM SURGERY PROCEDURE: MA REPAIR NASAL SEPTAL PERFORATIONS; COMMENT: 2002 OTHER SURGICAL HISTORY 03/2019 PROCEDURE: MAMMOGRAM COLONOSCOPY 2007 PROCEDURE: HISTORICAL COLONOSCOPY; COMMENT: small tubular adenomas x 2 COLONOSCOPY 2012 PROCEDURE: HISTORICAL COLONOSCOPY; COMMENT: small polyp at 15 cm: Tubular adenoma. OTHER SURGICAL HISTORY PROCEDURE: HISTORICAL TOTAL HYSTERECTOMY W/O BSO; COMMENT: BOTH OVARIES REMAIN TOTAL KNEE ARTHROPLASTY 12/14; 02/13 Bilateral PROCEDURE: MA ARTHRP KNE CONDYLE&PLATU MEDIAL&LAT COMPARTMENTS; COMMENT: L, R - NEOS COLONOSCOPY 06/27/2018 PROCEDURE: HISTORICAL COLONOSCOPY; COMMENT: Diverticulosis; no polyps. BREAST BIOPSY 2003ish Left PROCEDURE: BX BREAST; PERC NEEDLE CORE W/IMAG GUID; COMMENT: neg OTHER SURGICAL HISTORY 11/15/2020 Left PROCEDURE: MA COLECTOMY PARTIAL W/ANASTOMOSIS; COMMENT: Laparoscopic left colectomy with mobilization of splenic flexure, I&D of peritoneal abscess, repair of colovesical fistula - by Dr. Mathew Alvarez to address diverticulitis complicated by perforation and intra-abdominal abscess near dome of bladder as wel Medical History Medical History Date Comments Hypertension DX:Hypertension Dermatomyositis (CMS/HCC) DX:Qasim matomyositis (HCC) High cholesterol DX:High cholest hernesto Diverticulitis DX:Diverticuliti s Allergic rhinitis, cause unspecified DX:Allergic rhinitis, cause unspecified Headache(784.0) DX:Headache(784. 0) Heartburn DX:Heartburn Other and unspecified hyperlipidemia DX:Other and unspecified hyperlipidemia Anemia, unspecified DX:Anemia, u nspecified Essential hypertension, benign D X:Essential hypertension, benign Tubular adenoma 03/05/2012 DX:Tubular adeno ma DJD (degenerative joint dise ase) of knee 01/14/2014 DX:DJD (degenerative joint d isease) of knee Total knee replacement status 02/06/2017 DX :Total knee replacement status; COMMENT: Left TKR 12/14 Diverticulitis 08/30/2020 DX:Diverticuliti s; COMMENT: 07/19 with abscess Osteopenia 09/11/2023 DX:Osteopenia; C OMMENT: 09/21 T score spine +0.5 hip -1.2 FRAX score 13% 10 year fracture risk Family History Medical History Relation Name Comments Other: 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 cancer Aunt at age 99 Hyperlipidemia Brother 1 hypertension, myelofibrosis Other: hit by train Brother 2 24 Diabetes Brother 3 Cancer Father Other: stomach cancer Father Arthritis Mother hypertension, e levated cholesterol, TIA Breast cancer Neg Hx Colon cancer Neg Hx Prostate cancer Neg Hx Relation Name Status Comments Aunt Brother 1 Brother 2 Brother 3 Father Mother Social History Tobacco Use Types Packs/Day Years [...] Orientation Straight 08/12/2024 4: 06 PM EST Obstetrics History Para Term AB IAB SAB Ectopic Multiple Livin g Live Births 2 2 2 2 Date Outcome GA Total Labor Labor/2nd/3rd Weight Sex Type Anes PTL Juana A1 A5 Name Clin Term Term Last Filed Vital Signs Vital Sign Reading [...] Mass Index 31.67 11/05/2024 9:03 AM EST Plan of Treatment Upcoming Encounters Date Type Department Care Team (Late st Contact Info) Description 11/24/2024 7:30 AM EST Hospital Encounter [facility] Main OR [address] [place] [phone] Ganesh Johnson MD [address] [address] 11/24/2024 7:30 AM EST - 11/24/2024 11:00 AM EST Surgery [facility] Main OR [address] [place] [phone] Ganesh Johnson MD [address] [address] Da Vince right middle lobe wedge ? lobectomy [78784 (CPT??) +4 more] 12/10/2024 11:00 AM EDT Office Visit Thoracic Surgery - [place] [address] [phone] Elizabeth Martinez PA 299 [facility] [address] [place] [address] 01/06/2025 11:00 AM EDT Office Visit Adult Medicine [facility] [address] [place] [phone] Sabrina Mauricio MD [address] [place] [address] 03/01/2025 9:30 AM EDT Office Visit Pulmonolgy - [place] [address] [phone] Sandra Person NP [address] [phone] Scheduled Procedures Name Priority Associated Diagnoses Date/Ti me THORACOSCOPY ROBOT TWO Mass of middle lobe of right lung 11/24/2024 7:30 AM EST Health Maintenance Due Date Last Done Comments Zoster Vaccines (1 of 2) 2007 Hepatitis C Screening 09/08/2022 Medicare Annual Wellness Visit 09/08/2022 Social Influencers of Health Screening 09/08/2022 Pneumococcal Vaccine: 50+ Years (3 of 3 - PCV20 or PCV21) 11/12/2023 11/12/2018, 03/31/2018 COVID-19 Vaccine (3 - season) 2024 12/01/2020, 10/27/2020 Influenza Vaccine (#1) 2024 , 08/11/2021, 08/11/2021, Additional history exists Depression Screening 03/25/2025 03/25/2024 Falls Risk Assessment 03/25/2025 03/25/2024 Hypertension/CHF/CAD Annual BMP Blood Test 11/17/2025 11/17/2024, 03/04/2024 Breast Cancer Screening 10/05/2026 10/05/19, 09/27/2023, 09/11/2022, Additional history exists DTaP,Tdap,and Td Vaccines (3 - Td or Tdap) 03/31/2028 03/31/2018, 05/12/2008 Cholesterol Screening (Lipid Panel) 07/10/2028 07/10/2023 Colorectal Cancer Screening: Colonoscopy 04/06/2029 04/06/2024 RSV Immunization Patients 60+ Years Old (1 - 1-dose 75+ series) 02/29/2032 Osteoporosis Screening (Bone Density Screening) 09/11/2033 09/11/2023, 07/07/2018 HIB Vaccines Aged Out No longer eligi ble based on patient's age to complete this topic HPV Vaccines Aged Out No longer eligi ble based on patient's age to complete this topic Hepatitis A Vaccines Aged Out No long er eligible based on patient's age to complete this topic Hepatitis B Vaccines Aged Out No long er eligible based on patient's age to complete this topic IPV Vaccines Aged Out No longer eligi ble based on patient's age to complete this topic MMR Vaccines Aged Out No longer eligi ble based on patient's age to complete this topic Meningococcal ACWY Vaccine Aged Out N o longer eligible based on patient's age to complete this topic Meningococcal B Vacine Aged Out No lo nger eligible based on patient's age to complete this topic RSV Immunization Patients Under 20 months Aged Out No longer eligible based on patient's age to complete this topic Varicella Vaccines Aged Out No longer eligible based on patient's age to complete this topic Procedures Procedure Name Priority Date/Time Associated Diagnosis Comments CBC WITH AUTO DIFFERENTIAL Routine 11/17/2024 11:00 AM EST Mass of middle lobe of right lung BASIC METABOLIC PANEL Routine 11/17/2024 11:00 AM EST Mass of middle lobe of right lung CBC AND DIFFERENTIAL Routine 11/17/2024 11:00 AM EST Mass of middle lobe of right lung PROTHROMBIN TIME WITH INR Routine 11/17/2024 11:00 AM EST Mass of middle lobe of right lung Neoplasm ACTIVATED PARTIAL THROMBOPLASTIN TIME Routine 11/17/2024 11:00 AM EST Mass of middle lobe of right lung Neoplasm TYPE AND SCREEN Routine 11/17/2024 11:00 AM EST Mass of middle lobe of right lung PROCEDURAL ECG Routine 11/17/2024 10:44 AM EST Mass of middle lobe of right lung PULMONARY FUNCTION TESTING Routine 10/28/2024 9:02 AM EST Mass of middle lobe of right lung PET CT SKULL TO MID THIGH INITIAL Routine 10/06/2024 11:46 AM EST Mass of middle lobe of right lung MG MAMMO DIGITAL SCREENING W HUMBERTO BILAT Routine 10/05/2024 9:38 AM EST Encounter for screening mammogram for breast cancer MR ABDOMEN WO AND W CONTRAST Routine 10/03/2024 8:22 AM EST Liver lesion US GUIDED FINE NDL ASP 1ST LESION Routine 10/02/2024 8:35 AM EST Thyroid nodule FINE NEEDLE ASPIRATION Routine 8:35 AM EST Thyroid nodule US HEAD NECK SOFT TISSUE Routine 09/21/2024 6:23 PM EST Thyroid nodule CT CHEST WO CONTRAST Routine 09/16/2024 9:57 AM EST Lung nodule DXA BONE DENSITY STUDY 1+ SITS AXIAL SKEL Routine 09/11/2023 10:14 AM EST Unspecified menopausal and perimenopausal disorder from Last 3 Months or Most Recently Relevant to Health Maintenance Results * (ABNORMAL) CBC auto differential (11/17/2024 11:00 AM EST) [facility] WBC 8.2 4.8 - 10.8 K/mcL LAB HEMETOLOGY METHOD 11/17/2024 11:[address] [facility] RBC 4.00 3.80 - 4.80 M/mcL LAB HEMETOLOGY METHOD 11/17/2024 11:[address] [facility] Hemoglobin 11.6 11.5 - 16.0 g/dL LAB HEMETOLOGY METHOD 11/17/2024 11:[address] [facility] Hematocrit 34.9(L) 35.0 - 47.0 % LAB HEMETOLOGY METHOD 11/17/2024 11:[address] [facility] MCV 86.8 79.0 - 98.0 FL LAB HEMETOLOGY METHOD 11/17/2024 11:[address] [facility] MCH 28.9 27.0 - 32.0 pcg LAB HEMETOLOGY METHOD 11/17/2024 11:[address] [facility] MCHC 33.2 32.0 - 37.0 g/dL LAB HEMETOLOGY METHOD 11/17/2024 11:[address] [facility] RDW 15.3(H) 11.0 - 15.0 % LAB HEMETOLOGY METHOD 11/17/2024 11:[address] [facility] Platelets 610(H) 130 - 400 K/mcL LAB HEMETOLOGY METHOD 11/17/2024 11:[address] [facility] MPV 9.7 7.0 - 11.0 FL LAB HEMETOLOGY METHOD 11/17/2024 11:[address] [facility] NRBC 0.0 <1.0 % LAB HEMETOLOGY METHOD 11/17/2024 11:[address] [facility] NRBC Absolute 0.00 <0.10 K/mcL LAB HEMETOLOGY METHOD 11/17/2024 11:[address] [facility] Neutrophils Relative 70.2 % LAB HEMETOLOGY METHOD 11/17/2024 11:[address] [facility] Lymphocytes Relative 19.6 % LAB HEMETOLOGY METHOD 11/17/2024 11:[address] [facility] Monocytes Relative 6.5 % LAB HEMETOLOGY METHOD 11/17/2024 11:[address] [facility] Eosinophils Relative 2.4 % LAB HEMETOLOGY METHOD 11/17/2024 11:[address] [facility] Basophils Relative 0.9 % LAB HEMETOLOGY METHOD 11/17/2024 11:[address] [facility] Immature Granulocytes Relative 0.4 % LAB HEMETOLOGY METHOD 11/17/2024 11:[address] [facility] Neutrophils Absolute 5.77 1.50 - 7.00 K/mcL LAB HEMETOLOGY METHOD 11/17/2024 11:[address] [facility] Lymphocytes Absolute 1.61 1.00 - 5.00 K/mcL LAB HEMETOLOGY METHOD 11/17/2024 11:[address] [facility] Monocytes Absolute 0.53 0.20 - 1.00 K/mcL LAB HEMETOLOGY METHOD 11/17/2024 11:[address] [facility] Eosinophils Absolute 0.20 0.00 - 0.50 K/mcL LAB HEMETOLOGY METHOD 11/17/2024 11:30 AM EST [facility] Basophils Absolute 0.07 0.00 - 0.20 K/[facility] LAB HEMETOLOGY METHOD 11/17/2024 11:30 AM EST [facility] Immature Granulocytes Absolute 0.03 0.00 - 0.03 K/[facility] LAB HEMETOLOGY METHOD 11/17/2024 11:30 AM EST [facility] Blood Venous blood specimen / Unknown Venipuncture / Unknown 11/17/2024 11:00 AM EST 11/17/2024 11:16 AM EST us Ganesh Johnson MD LAB BLOOD ORDERABLES Final Resul t Performing Organization Address City/[facility]/ZIP Co de Phone Number [facility] [address] [place] [address], [place] [phone] * Activated partial thromboplastin time (11/17/2024 11:00 AM EST) aPTT 29.0 24.1 - 39.3 sec LAB COAGULATION METHOD 11/17/2024 11:40 AM EST [facility] Blood Venous blood specimen / Unknown Venipuncture / Unknown 11/17/2024 11:00 AM EST 11/17/2024 11:16 AM EST us Ganesh Johnson MD LAB BLOOD ORDERABLES Final Resul t [facility] [address] [place] [address], [place] [phone] * Prothrombin time with INR (11/17/2024 11:00 AM EST) Protime 11.3 10.6 - 13.9 sec LAB COAGULATION METHOD 11/17/2024 11:40 AM EST [facility] INR 0.9 LAB COAGULATION METHOD 11/17/2024 11:40 AM EST [facility] Blood Venous blood specimen / Unknown Venipuncture / Unknown 11/17/2024 11:00 AM EST 11/17/2024 11:16 AM EST us Ganesh Johnson MD LAB BLOOD ORDERABLES Final Resul t Performing Organization Address [facility]/ZIP Co de Phone Number [facility] [address] [place] [address], [place] [phone] * Type and screen (11/17/2024 11:00 AM EST) Pathologist [facility] ABO Group A 11/17/2024 1:07 PM EST [facility] Rh Type Negative 11/17/2024 1:07 PM EST [facility] Antibody Screen Negative 11/17/2024 1:07 PM EST [facility] Blood Venous blood specimen / Unknown Venipuncture / Unknown 11/17/2024 11:00 AM EST 11/17/2024 11:16 AM EST us Ganesh Johnson MD LAB BLOOD BANK TEST ORDERABLES F inal Result Performing Organization Address [facility]/ZIP Co de Phone Number [facility] [address] [place] [address], [place] [phone] * (ABNORMAL) Basic metabolic panel (11/17/2024 11:00 AM EST) Sodium 138 133 - 145 mmol/L LAB CHEMISTRY METHOD 11/17/2024 1:14 PM EST [facility] Potassium 4.6 3.5 - 5.5 mmol/L LAB CHEMISTRY METHOD 11/17/2024 1:[address] [facility] Chloride 105 96 - 110 mmol/L LAB CHEMISTRY METHOD 11/17/2024 1:[address] [facility] CO2 27 21 - 32 mmol/L LAB CHEMISTRY METHOD 11/17/2024 1:14 PM EST [facility] Anion Gap 6 3 - 11 LAB CHEMISTRY METHOD 11/17/2024 1:14 PM EST [facility] Glucose 105(H) 70 - 100 mg/dL LAB CHEMISTRY METHOD 11/17/2024 1:[address] [facility] BUN 19 5 - 25 mg/dL LAB CHEMISTRY METHOD 11/17/2024 1:[address] [facility] Creatinine 0.84 0.50 - 1.10 mg/dL LAB CHEMISTRY METHOD 11/17/2024 1:14 PM EST [facility] eGFR 76 >=60 mL/min/1. 73m2 LAB CHEMISTRY METHOD 11/17/2024 1:[address] [facility] Comment:Calculation based on the??Chronic Kidney Disease Epidemiology Collaboration (CKD-EPI) equation refit??without adjustment for race. BUN/Creatinine Ratio 22.6 LAB CHEMISTRY METHOD 11/17/2024 1:[address] [facility] Calcium 9.7 8.5 - 10.5 mg/dL LAB CHEMISTRY METHOD 11/17/2024 1:[address] [facility] Blood Venous blood specimen / Unknown Venipuncture / Unknown 11/17/2024 11:00 AM EST 11/17/2024 11:16 AM EST us Ganesh Johnson MD LAB BLOOD ORDERABLES Final Resul t [facility] [address] [place] [address], * Pulmonary function testing: Carbon Monoxide Diffusing [...] ??No restriction. ??And no decrease in diffusion. us Sandra Person BUSINESS OBJECTS ARCHITECT PFT ORDERABLES Final R esult * PET CT Skull to Mid Thigh Initial (10/06/2024 11:46 AM EST) Anatomical Region Laterality Modality Body Radiographic Hayley ging 10/08/2024 10:4 9 AM EST Impressions 10/09/2024 9:35 AM EST 1. ??Indeterminant right middle lobe nodule demonstrating mild to moderate FDG activity 2. ??No significant FDG avid thoracic lymphadenopathy in comparison to background Please note: The CT was acquired at a low radiation dose settings. ??The images are of nondiagnostic quality and used solely for purposes of attenuation correction and slice localization for the PET scan. ??If a diagnostic CT study is desired it must be ordered separately. -------- FINAL REPORT -------- Dictated By: Toyin Olivarez Dictated Date: 10/08/2024 10:49 ET Assigned Physician: Toyin Olivarez Reviewed and Electronically Signed By: Toyin Olivarez Signed Date: 10/09/2024 09:35 ET Workstation ID: [id number] Transcribed By: Self Edit Transcribed Date: 10/08/2024 11:36 ET Narrative 10/09/2024 9:35 AM EST INDICATION: Lung nodule, > 8mmPaitnet has R [...] and attenuation correction CT. The CT portion of the examination was done strictly for attenuation correction and is not a true diagnostic CT examination. DLP: ??1076 mGy-cm Radiopharmaceutical: 12.9 mCi of F-18 FDG IV. Blood glucose: 98 mg/dl. COMPARISON: Chest CT 08/2024 and MRI of the abdomen 09/2024. FINDINGS: HEAD AND NECK: Low attenuation lesion in the left thyroid lobe without significant FDG activity SUV max 1.9 (background SUV max 2.4). THORAX: 2.4 cm nodule in the right middle lobe SUV max 2.8. ??Other scattered smaller sub-5 mm pulmonary nodules SUV Max 1.0. Right superior hilar lymph node SUV max 2.5, right paratracheal lymph node SUV max 1.5 and subcarinal SUV max 1.6 (mediastinal blood pool SUV Max 3.2). ?? Nonenlarged bilateral axillary lymph nodes SUV max 1.3 on the left. Nonspecific FDG activity projecting at the level of the mid to distal esophagus SUV max 3.9, some of which may represent volume averaging with cardiac activity. ABDOMEN/PELVIS: No abnormal FDG activity. MUSCULOSKELETAL: No abnormal FDG activity. Procedure Note Toyin Olivarez MD - 10/09/2024 INDICATION: Lung nodule, > 8mmPaitnet has R lung 2.9cm nodules on lateralmedial lobe, weight loss in last months. TECHNIQUE: FDG PET-CT imaging was performed from the skull bases throughthe thighs in a single acquisition with data set reconstructed in axial,coronal, and sagittal planes at the computer workstation with fused datafrom both the PET imaging study and attenuation correction CT. The CTportion of the examination was done strictly for attenuation correctionand is not a true diagnostic CT examination. DLP: 1076 mGy-cm Radiopharmaceutical: 12.9 mCi of F-18 FDG IV. Blood glucose: 98 mg/dl. COMPARISON: Chest CT 08/2024 and MRI of the abdomen 09/2024. FINDINGS: HEAD AND NECK: Low attenuation lesion in the left thyroid lobe withoutsignificant FDG activity SUV max 1.9 (background SUV max 2.4). THORAX: 2.4 cm nodule in the right middle lobe SUV max 2.8. Otherscattered smaller sub-5 mm pulmonary nodules SUV Max 1.0. Right superior hilar lymph node SUV max 2.5, right paratracheal lymph nodeSUV max 1.5 and subcarinal SUV max 1.6 (mediastinal blood pool SUV Max3.2). Nonenlarged bilateral axillary lymph nodes SUV max 1.3 on the left. Nonspecific FDG activity projecting at the level of the mid to distalesophagus SUV max 3.9, some of which may represent volume averaging withcardiac activity. ABDOMEN/PELVIS: No abnormal FDG activity. MUSCULOSKELETAL: No abnormal FDG activity. IMPRESSION: 1. Indeterminant right middle lobe nodule demonstrating mild to moderateFDG activity 2. No significant FDG avid thoracic lymphadenopathy in comparison tobackground Please note: The CT was acquired at a low radiation dose settings. The images are ofnondiagnostic quality and used solely for purposes of attenuationcorrection and slice localization for the PET scan. If a diagnostic CTstudy is desired it must be ordered separately. -------- FINAL REPORT -------- Dictated By: Toyin Olivarez Dictated Date: 10/08/2024 10:49 ET Assigned Physician: Toyin Olivarez Reviewed and Electronically Signed By: Toyin Olivarez Signed Date: 10/09/2024 09:35 ET Workstation ID: [id number] Transcribed By: Self Edit Transcribed Date: 10/08/2024 11:36 ET us Sandra Person BUSINESS OBJECTS ARCHITECT IMG NM PROCEDURES Final Result * MG Mammo Digital Screening w Humberto bilat (10/05/2024 9:38 AM EST) Anatomical Region Laterality Modality Breast Bilateral Mammography 10/05/2024 1:52 PM EST Impressions 10/05/2024 1:56 PM EST Benign. BI-RADS CATEGORY: 2 - BENIGN RECOMMENDATION: Screening bilateral mammogram is recommended in 1 year. Mammo Location: [facility], [address] [place] [address], [id number], . Screening -------- FINAL REPORT -------- Dictated By: Mignon Shaffer Dictated Date: 10/05/2024 13:52 ET Assigned Physician: Mignon Shaffer Reviewed and Electronically Signed By: Mignon Shaffer Signed Date: 10/05/2024 13:56 ET Workstation ID: [id number] Transcribed By: Self Edit Transcribed Date: 10/05/2024 13:52 ET Narrative 10/05/2024 1:56 PM EST CLINICAL: 69 years old, Female, routine annual exam. COMPARISON: Mammograms dating back to 08/03/2020 with most recent of 09/27/2023. ?? TECHNIQUE: Bilateral MLO and CC views were obtained digitally with 3-D mammogram (digital breast tomosynthesis). Computer-aided detection was utilized in evaluation of this exam (CAD). FINDINGS: There is no evidence of suspicious mass or architectural distortion. ??No worrisome calcifications are evident. ??Focal asymmetries in the anterior right breast are stable. ??There has been no significant change from prior exam(s). ?? BREAST DENSITY: B - There are scattered areas of fibroglandular density. Procedure Note Mignon Shaffer MD - 10/05/2024 CLINICAL: 69 years old, Female, routine annual exam. COMPARISON: Mammograms dating back to 08/03/2020 with most recent of09/27/2023. TECHNIQUE: Bilateral MLO and CC views were obtained digitally with 3-Dmammogram (digital breast tomosynthesis). Computer-aided detection wasutilized in evaluation of this exam (CAD). FINDINGS: There is no evidence of suspicious mass or architectural distortion. Noworrisome calcifications are evident. Focal asymmetries in the anteriorright breast are stable. There has been no significant change from priorexam(s). BREAST DENSITY: B - There are scattered areas of fibroglandular density. IMPRESSION: Benign. BI-RADS CATEGORY: 2 - BENIGN RECOMMENDATION: Screening bilateral mammogram is recommended in 1 year. Mammo Location: [facility], [address] [place] [address], [id number], . Screening -------- FINAL REPORT -------- Dictated By: Mignon Shaffer Dictated Date: 10/05/2024 13:52 ET Assigned Physician: Mignon Shaffer Reviewed and Electronically Signed By: Mignon Shaffer Signed Date: 10/05/2024 13:56 ET Workstation ID: [id number] Transcribed By: Self Edit Transcribed Date: 10/05/2024 13:52 ET us Sabrina Mauricio MD IMG BI PROCEDURES Final Result * MR Abdomen wo and w Contrast (10/03/2024 8:22 AM EST) Anatomical Region Laterality Modality Body Magnetic Resonan ce 10/05/2024 7:38 AM EST Impressions 10/05/2024 7:53 AM EST The low attenuating lesion demonstrated in the liver on recent CT has the MR features of a cyst. No suspicious liver lesion. No convincing evidence of metastatic disease. ?? -------- FINAL REPORT -------- Dictated By: Hernan Cobb Dictated Date: 10/05/2024 07:38 ET Assigned Physician: Hernan Cobb Reviewed and Electronically Signed By: Hernan Cobb Signed Date: 10/05/2024 07:53 ET Workstation ID: [id number] Transcribed By: Self Edit Transcribed Date: 10/05/2024 07:38 ET Narrative 10/05/2024 7:53 AM EST EXAMINATION: MRI ABDOMEN WITHOUT AND WITH IV CONTRAST CLINICAL INFORMATION: Incompletely characterized liver lesion. ??Concerning pulmonary findings on recent CT. COMPARISON: Selected portions of chest CT 09/16/2024 ?? TECHNIQUE: Anatomic and fluid sensitive MR sequences were performed on a high field platform to examine the abdomen. ?? MRCP was not performed. Imaging before and after the IV administration of contrast. Amount of IV contrast: 15 mL Type of contrast: Dotarem Volume of contrast discarded: 0 mL FINDINGS: LIVER: The right lobe of the liver measures 17.6 cm which is within one standard deviation above the mean expected. There are no imaging manifestations of underlying chronic liver disease. ??Specifically, the liver contour is smooth. ??The background hepatic signal is homogeneous. There is a sharply circumscribed homogeneous T2 intense 0.8 cm mass abutting the anterolateral capsular surface of the liver near the interface between hepatic segment 8 and 4A. This is not well demonstrated on the early postcontrast phase. ??There is no significant enhancement on later phases. ?? There is no suspicious early enhancing liver lesion. BILIARY TRACT: ??There is no cholelithiasis. ??There is no biliary dilation. MRCP: ??Not performed SPLEEN: The spleen measures 11.6 cm. ??This is within one standard deviation above the mean expected. ??No suspicious focal lesion. ?? PANCREAS: No suspicious abnormality. ??No generalized dilation of the pancreatic duct. ??There are one or 2 punctate T2 intense foci. ??Lesions of this size do not require specific imaging follow-up. ?? ADRENAL GLANDS: No suspicious mass. ?? KIDNEYS: There is a sharply circumscribed 1.4 cm fluid signal nonenhancing lesion slightly deforming the ventral contour of the mid left kidney. ??This has the features of a cyst. ??This does not require any specific imaging follow-up. ??The nephrograms are symmetric. ?? GASTROINTESTINAL TRACT: There is a hiatal hernia. ?? ABDOMINAL WALL: There is a fat-containing ventral abdominal wall hernia. ?? LYMPHOVASCULAR STRUCTURES AND FLUID: There is no abdominal aortic aneurysm. ??The portal vein enhances. ?? MUSCULOSKELETAL: No suspicious marrow signal abnormality. ?? VISUALIZED LOWER CHEST: There is a linear abnormality in the right midlung. ??The patient has had recent chest CT. ?? Procedure Note Hernan Cobb MD - 10/05/2024 EXAMINATION: MRI ABDOMEN WITHOUT AND WITH IV CONTRAST CLINICAL INFORMATION: Incompletely characterized liver lesion. Concerning pulmonary findings onrecent CT. COMPARISON: Selected portions of chest CT 09/16/2024 TECHNIQUE: Anatomic and fluid sensitive MR sequences were performed on a high fieldplatform to examine the abdomen. MRCP was not performed. Imaging before and after the IV administration of contrast. Amount of IV contrast: 15 mL Type of contrast: Dotarem Volume of contrast discarded: 0 mL FINDINGS: LIVER: The right lobe of the liver measures 17.6 cm which is within onestandard deviation above the mean expected. There are no imagingmanifestations of underlying chronic liver disease. Specifically, theliver contour is smooth. The background hepatic signal is homogeneous. There is a sharply circumscribed homogeneous T2 intense 0.8 cm massabutting the anterolateral capsular surface of the liver near theinterface between hepatic segment 8 and 4A. This is not well demonstrated on the early postcontrast phase. There isno significant enhancement on later phases. There is no suspicious early enhancing liver lesion. BILIARY TRACT: There is no cholelithiasis. There is no biliarydilation. MRCP: Not performed SPLEEN: The spleen measures 11.6 cm. This is within one standarddeviation above the mean expected. No suspicious focal lesion. PANCREAS: No suspicious abnormality. No generalized dilation of thepancreatic duct. There are one or 2 punctate T2 intense foci. Lesions ofthis size do not require specific imaging follow-up. ADRENAL GLANDS: No suspicious mass. KIDNEYS: There is a sharply circumscribed 1.4 cm fluid signal nonenhancinglesion slightly deforming the ventral contour of the mid left kidney.This has the features of a cyst. This does not require any specificimaging follow-up. The nephrograms are symmetric. GASTROINTESTINAL TRACT: There is a hiatal hernia. ABDOMINAL WALL: There is a fat-containing ventral abdominal wall hernia. LYMPHOVASCULAR STRUCTURES AND FLUID: There is no abdominal aorticaneurysm. The portal vein enhances. MUSCULOSKELETAL: No suspicious marrow signal abnormality. VISUALIZED LOWER CHEST: There is a linear abnormality in the rightmidlung. The patient has had recent chest CT. IMPRESSION: The low attenuating lesion demonstrated in the liver on recent CT has theMR features of a cyst. No suspicious liver lesion. No convincing evidence of metastatic disease. -------- FINAL REPORT -------- Dictated By: Hernan Cobb Dictated Date: 10/05/2024 07:38 ET Assigned Physician: Hernan Cobb Reviewed and Electronically Signed By: Hernan Cobb Signed Date: 10/05/2024 07:53 ET Workstation ID: [id number] Transcribed By: Self Edit Transcribed Date: 10/05/2024 07:38 ET us Velia SARKAR IMG MRI PROCEDURES Final Resu lt * US Guided Fine Ndl Asp 1st Lesion (10/02/2024 8:35 AM EST) Anatomical Region Laterality Modality Ultrasound 10/02/2024 7:08 PM EST Impressions 10/02/2024 7:08 PM EST Ultrasound guided aspiration of the left midpole thyroid lobe nodule. Final cytology is pending -------- FINAL REPORT -------- Dictated By: Tigre Cali Dictated Date: 10/02/2024 19:08 ET Assigned Physician: Tigre Cali Reviewed and Electronically Signed By: Tigre Cali Signed Date: 10/02/2024 19:08 ET Workstation ID: [id number] Transcribed By: Self Edit Transcribed Date: 10/02/2024 19:08 ET Narrative 10/02/2024 7:08 PM EST THYROID FNA CLINICAL HISTORY: Patient presents for ultrasound-guided fine-needle aspiration. PROCEDURES: 1. Limited pre procedure ultrasound of the left midpole thyroid nodule. ?? 2. FNA sampling of the left midpole thyroid nodule MEDICATIONS: -Lidocaine 1% 10 mL SQ. COMPLICATIONS: None. ESTIMATED BLOOD LOSS: Minimal SPECIMENS: Total of 3 FNA samples. PROCEDURE NOTE: The procedure, risks, benefits, and alternatives were carefully explained to the patient and written informed consent was obtained. ??The patient was placed supine on the ultrasound table. ??A time out was performed. ??A limited ultrasound of the thyroid was performed to localize the nodule and choose appropriate needle entry and trajectory. ??The patient was prepped and draped in usual sterile fashion. The skin and subcutaneous tissues were anesthetized with Lidocaine. Under ultrasound guidance, a 25-gauge needle was advanced to the lesion. FNA samples were obtained. The needles were removed Samples were sent for cytology/pathology. The patient was stable after the procedure and discharged. ?? Procedure Note Tigre Cali MD - 10/02/2024 THYROID FNA CLINICAL HISTORY: Patient presents for ultrasound-guided fine-needleaspiration. PROCEDURES: 1. Limited pre procedure ultrasound of the left midpole thyroid nodule. 2. FNA sampling of the left midpole thyroid nodule MEDICATIONS: -Lidocaine 1% 10 mL SQ. COMPLICATIONS: None. ESTIMATED BLOOD LOSS: Minimal SPECIMENS: Total of 3 FNA samples. PROCEDURE NOTE: The procedure, risks, benefits, and alternatives were carefully explainedto the patient and written informed consent was obtained. The patient wasplaced supine on the ultrasound table. A time out was performed. Alimited ultrasound of the thyroid was performed to localize the nodule andchoose appropriate needle entry and trajectory. The patient was preppedand draped in usual sterile fashion. The skin and subcutaneous tissues were anesthetized with Lidocaine. Underultrasound guidance, a 25-gauge needle was advanced to the lesion. FNAsamples were obtained. The needles were removed Samples were sent for cytology/pathology. The patient was stable after the procedure and discharged. IMPRESSION: Ultrasound guided aspiration of the left midpole thyroid lobe nodule. Final cytology is pending -------- FINAL REPORT -------- Dictated By: Tigre Cali Dictated Date: 10/02/2024 19:08 ET Assigned Physician: Tigre Cali Reviewed and Electronically Signed By: Tigre Cali Signed Date: 10/02/2024 19:08 ET Workstation ID: [id number] Transcribed By: Self Edit Transcribed Date: 10/02/2024 19:08 ET us Valerie SARKAR IMG US PROCEDURES Final Result * Fine needle aspiration (10/02/2024 8:35 AM EST) Final Diagnosis A. Thyroid, left mid pole, fine needle aspiration: (ThinPrep and direct smears): Benign ([place] Category II). Consistent with follicular nodular disease. 10/08/2024 9:[address] [facility] Clinical Information LT MP THYROID 10/08/2024 9:[address] [facility] Specimen A Adequacy Satisfactory for evaluation 10/08/2024 9:[address] [facility] Gross Description A. Thyroid, Left, LT MP THYROID: Received in Cytolyt 30 ml of pink fluid; 1 ThinPrep,2 pap stained direct smears. 10/08/2024 9:[address] [facility] Disclaimer Unless otherwise specified, all tissue is 10% NB formalin fixed and paraffin embedded. Technical cytopathology services provided by [facility], at [address] [place] [address], [place] [address] (CLIA # [id number]/Elias Jackson MD, Towel Sorter.) 10/08/2024 9:[address] [facility] Fine Needle Aspirate Structure of left lobe of thyroid gland / Unknown 10/02/2024 8:35 AM EST 10/05/2024 8:47 AM EST Comment:LT MP THYROID us Tigre Cali MD LAB PATHOLOGY ORDERABLES Fi nal Result [facility] ([facility]) [facility] [address] [place] [address], [place] [phone] * US Head Neck Soft Tissue (09/21/2024 6:23 PM EST) Anatomical Region Laterality Modality Head and Neck Ultrasound 09/23/2024 12:3 9 AM EST Narrative 09/23/2024 12:42 AM EST Thyroid ultrasound. History thyroid nodule. No prior thyroid ultrasounds are available for comparison. Thyroid gland is heterogeneous in echotexture with normal flow on color Doppler examination. Right thyroid lobe measures 4.2 x 1.1 x 1.6 cm. There is a small circumscribed mostly cystic nodule in the midpole measuring 0.5 x 0.3 x 0.3 cm. Left thyroid lobe measures 5.2 x 1.4 x 1.7 cm. There is a mixed echogenicity nodule with cystic and solid components in the midpole measuring 1.9 x 1.2 x 1.4 cm. There is a small slightly hyperechoic circumscribed nodule in the lower pole measuring 0.5 x 0.6 x 0.5 cm. Isthmus measures 4 mm. CONCLUSIONS: Heterogeneous in echotexture thyroid gland with bilateral thyroid nodules. Ultrasound-guided biopsy of the dominant nodule in the midpole of the left thyroid lobe may be considered. -------- FINAL REPORT -------- Dictated By: Colette Linder Dictated Date: 09/23/2024 00:39 ET Assigned Physician: Colette Linder Reviewed and Electronically Signed By: Colette Linder Signed Date: 09/23/2024 00:42 ET Workstation ID: [id number] Transcribed By: Self Edit Transcribed Date: 09/23/2024 00:39 ET Procedure Note Colette Linder MD - 09/23/2024 Thyroid ultrasound. History thyroid nodule. No prior thyroid ultrasounds are available for comparison. Thyroid gland is heterogeneous in echotexture with normal flow on colorDoppler examination. Right thyroid lobe measures 4.2 x 1.1 x 1.6 cm. There is a smallcircumscribed mostly cystic nodule in the midpole measuring 0.5 x 0.3 x0.3 cm. Left thyroid lobe measures 5.2 x 1.4 x 1.7 cm. There is a mixedechogenicity nodule with cystic and solid components in the midpolemeasuring 1.9 x 1.2 x 1.4 cm. There is a small slightly hyperechoiccircumscribed nodule in the lower pole measuring 0.5 x 0.6 x 0.5 cm. Isthmus measures 4 mm. CONCLUSIONS: Heterogeneous in echotexture thyroid gland with bilateralthyroid nodules. Ultrasound-guided biopsy of the dominant nodule in themidpole of the left thyroid lobe may be considered. -------- FINAL REPORT -------- Dictated By: Colette Linder Dictated Date: 09/23/2024 00:39 ET Assigned Physician: Colette Linder Reviewed and Electronically Signed By: Colette Linder Signed Date: 09/23/2024 00:42 ET Workstation ID: [id number] Transcribed By: Self Edit Transcribed Date: 09/23/2024 00:39 ET us Valerie SARKAR IMG US PROCEDURES Final Result * CT Chest wo Contrast (09/16/2024 9:57 AM EST) Anatomical Region Laterality Modality Body Computed Tomogra phy 09/17/2024 4:19 PM EST Impressions 09/17/2024 4:35 PM EST There is a highly concerning solid abnormality [...] pulmonary consultation. Consider tissue diagnosis or PET/CT. ?? -------- FINAL REPORT -------- Dictated By: Hernan Cobb Dictated Date: 09/17/2024 16:19 ET Assigned Physician: Hernan Cobb Reviewed and Electronically Signed By: Hernan Cobb Signed Date: 09/17/2024 16:35 ET Workstation ID: [id number] Transcribed By: Self Edit Transcribed Date: 09/17/2024 16:19 ET Narrative 09/17/2024 4:35 PM EST EXAMINATION: CT CHEST WITHOUT CONTRAST CLINICAL INFORMATION: Abnormal CT abdomen. ??5 mm lung nodule COMPARISON: Portions of abdomen CT 01/16/2021. No CT from February 2024 available for comparison ?? TECHNIQUE: Multidetector CT. Examination of the chest. Examination of the chest without IV contrast. Reformatting in the coronal and sagittal planes. DLP: 594 mGy-cm Dose optimization was performed including the use of low-dose iterative reconstruction technique with automatic exposure control based on patient size. Type of contrast: None Volume of IV contrast: None Volume of contrast discarded: 0 mL FINDINGS: LUNG: There is an irregular solid 2.9 cm nodule in the lateral segment of the middle lobe. This has a somewhat linear configuration. This extends to the [...] generalized thickening of the intralobular septa. MEDIASTINUM: ??There is an approximately 1.6 cm low attenuating left lobe thyroid nodule. There are no measurably enlarged mediastinal lymph nodes. There is a small hiatal hernia. CARDIAC: The heart is not enlarged. No pericardial fluid or thickening ?? CORONARY CALCIFICATION: ??There are mild coronary calcifications. VASCULAR: There is no thoracic aortic aneurysm. The main pulmonary artery is normal caliber ?? PLEURA: There is no pleural fluid or pneumothorax ?? AXILLA/CHEST WALL: There are no enlarged axillary lymph nodes. No chest wall mass demonstrated ?? VISUALIZED UPPER ABDOMEN: ??Circumscribed 0.7 cm low attenuating lesion near the interface between hepatic segment 4A and 8. This may have slightly increased in size since 2020. There is a slightly exophytic low attenuating lesion arising from the lateral mid left kidney not completely included or characterized. MUSCULOSKELETAL: There is a nonspecific sclerotic focus in the sternal manubrium (12/18). ?? Procedure Note Hernan Cobb MD - 09/17/2024 EXAMINATION: CT CHEST WITHOUT CONTRAST CLINICAL INFORMATION: Abnormal CT abdomen. 5 mm lung nodule COMPARISON: Portions of abdomen CT 01/16/2021. No CT from February 2024 available for comparison TECHNIQUE: Multidetector CT. Examination of the chest. Examination of the chest without IV contrast. Reformatting in the coronal and sagittal planes. DLP: 594 mGy-cm Dose optimization was performed including the use of low-dose iterativereconstruction technique with automatic exposure control based on patientsize. Type of contrast: None Volume of IV contrast: None Volume of contrast discarded: 0 mL FINDINGS: LUNG: There is an irregular solid 2.9 cm nodule in the lateral segment ofthe middle lobe. This has a somewhat linear configuration. This extends tothe pleural reflections. No suspicious abnormality of the trachea or mainstem bronchi. There is a fissural nodule associated with the anterior and lateral aspectof the minor fissure (4/109) There is a peripheral nodule in the lateral segment of the middle lobemeasuring approximately 0.3 cm (4/116) There is a micronodule in the periphery of each lung measuring less than0.4 cm No honeycomb formation. No edema. No generalized thickening of theintralobular septa. MEDIASTINUM: There is an approximately 1.6 cm low attenuating left lobethyroid nodule. There are no measurably enlarged mediastinal lymph nodes.There is a small hiatal hernia. CARDIAC: The heart is not enlarged. No pericardial fluid or thickening CORONARY CALCIFICATION: There are mild coronary calcifications. VASCULAR: There is no thoracic aortic aneurysm. The main pulmonary arteryis normal caliber PLEURA: There is no pleural fluid or pneumothorax AXILLA/CHEST WALL: There are no enlarged axillary lymph nodes. No chestwall mass demonstrated VISUALIZED UPPER ABDOMEN: Circumscribed 0.7 cm low attenuating lesionnear the interface between hepatic segment 4A and 8. This may haveslightly increased in size since 2020. There is a slightly exophytic lowattenuating lesion arising from the lateral mid left kidney not completelyincluded or characterized. MUSCULOSKELETAL: There is a nonspecific sclerotic focus in the sternalmanubrium (3). IMPRESSION: There is a highly concerning solid abnormality in the lateral segment ofthe middle lobe. Malignancy could be present. Further evaluation isrequired. There are a few other scattered micronodules which are nonspecific. Small low attenuating lesion in the liver could be a cyst but has slightlyincreased in size since 2020. Tiny nonspecific sclerotic focus in the sternal manubrium. Recommend pulmonary consultation. Consider tissue diagnosis or PET/CT. -------- FINAL REPORT -------- Dictated By: Hernan Cobb Dictated Date: 09/17/2024 16:19 ET Assigned Physician: Hernan Cobb Reviewed and Electronically Signed By: Hernan Cobb Signed Date: 09/17/2024 16:35 ET Workstation ID: [id number] Transcribed By: Self Edit Transcribed Date: 09/17/2024 16:19 ET [address]erie SARKAR IMG CT PROCEDURES Final Result * DXA BONE DENSITY STUDY 1+ SITS AXIAL SKEL (09/11/2023 10:14 AM EST) Anatomical Region Laterality Modality Bone Densitometr y 09/26/2022 8:53 AM EST Narrative 09/11/2023 1:37 PM EST BONE DENSITY ? Lumbar Spine T-score is +0.5 ?? (SD relative to 20-29 y/o adult) Z-score is +2.3 ??(SD relative to age matched peers) This is normal by criteria defined by the WHO. Left Hip T-score is -1.2 Z-score is +0.4 This is consistent with osteopenia by criteria defined by the WHO. Comparison exam(s): significant decrease in bone density of ??lumbar spine when compared to most recent bone density examination ?? Confidence level is +/-95%. Impression: Based on the World Health Organization criteria, Dana Mcmahon should be classified as having osteopenia. This patient has a 13% risk of major osteoporotic fracture and a 1.3% risk of hip fracture over the next 10 years. (World Health Organization Fracture Risk Assessment) [facility] Department of Internal Medicine recommends using National Osteoporosis Foundation (NOF) guidelines in treatment decisions related to osteoporosis. NOF guidelines suggest considering treatment for postmenopausal women and men aged 50 or older presenting with the following: History of hip or vertebral fracture. T-score less than or equal to -2.5 (DXA) at the femoral neck, total hip, or spine, after appropriate evaluation to exclude secondary causes. Low bone mass (T-score between -1.0 and -2.5 at the femoral neck or spine) AND a 10-year probability of a hip fracture greater than or equal to 3% OR a 10-year probability of a major osteoporosis-related fracture greater than or equal to 20% based on the [place]-adapted WHO algorithm Please note that all treatment decisions require clinical judgment and consideration of individual patient factors, including patient preferences, co-morbidities, previous drug use, risk factors not captured in the FRAX model (e.g., frailty, falls, vitamin D deficiency, increased bone turnover, interval significant decline in bone density) and possible under- or over-estimation of fracture risk by FRAX. Procedure Note Bharat Ricks MD - 11/05/2023 BONE DENSITY Lumbar Spine T-score is +0.5 (SD relative to 20-29 y/o adult) Z-score is +2.3 (SD relative to age matched peers) This is normal by criteria defined by the WHO. Left Hip T-score is -1.2 Z-score is +0.4 This is consistent with osteopenia by criteria defined by the WHO. Comparison exam(s): significant decrease in bone density of lumbar spinewhen compared to most recent bone density examination Confidence level is +/-95%. Impression: Based on the World Health Organization criteria, Dana Mcmahon should beclassified as having osteopenia. This patient has a 13% risk of majorosteoporotic fracture and a 1.3% risk of hip fracture over the next 10years. (World Health Organization Fracture Risk Assessment) [facility] Department of Internal Medicine recommendsusing National Osteoporosis Foundation (NOF) guidelines in treatmentdecisions related to osteoporosis. NOF guidelines suggest consideringtreatment for postmenopausal women and men aged 50 or older presentingwith the following: History of hip or vertebral fracture. T-score less than or equal to -2.5 (DXA) at the femoral neck, total hip,or spine, after appropriate evaluation to exclude secondary causes. Low bone mass (T-score between -1.0 and -2.5 at the femoral neck or spine)AND a 10-year probability of a hip fracture greater than or equal to 3% ORa 10-year probability of a major osteoporosis-related fracture greaterthan or equal to 20% based on the [place]-adapted WHO algorithm Please note that all treatment decisions require clinical judgment andconsideration of individual patient factors, including patientpreferences, co-morbidities, previous drug use, risk factors not capturedin the FRAX model (e.g., frailty, falls, vitamin D deficiency, increasedbone turnover, interval significant decline in bone density) and possibleunder- or over-estimation of fracture risk by FRAX. Sabrina Mauricio MD IMG DXA PROCEDURES Final Result from Last 3 Months or Most Recently Relevant to Health Maintenance Insurance MEDICARE [facility] Advance Directives Documents on File Type Date Recorded Patient Environmental Services Coordinator Expl anation Health Care Decision (hx) 12/15/2020 AD SMALL DIRECTIVE Health Care Decision (hx) 12/14/2020 AD SMALL DIRECTIVE Health Care Decision (hx) 12/14/2020 AD SMALL DIRECTIVE Health Care Decision (hx) 12/14/2020 AD SMALL DIRECTIVE Health Care Decision (hx) 12/14/2020 AD SMALL DIRECTIVE Health Care Decision (hx) 12/14/2020 AD SMALL DIRECTIVE Health Care Decision (hx) 12/14/2020 AD SMALL DIRECTIVE Health Care Decision (hx) 12/14/2020 AD SMALL DIRECTIVE Health Care Decision (hx) 12/14/2020 AD SMALL DIRECTIVE Health Care Decision (hx) 12/14/2020 AD SMALL DIRECTIVE Health Care Decision (hx) 12/14/2020 AD SMALL DIRECTIVE Health Care Decision (hx) 12/14/2020 AD SMALL DIRECTIVE Health Care Decision (hx) 12/14/2020 AD SMALL DIRECTIVE Health Care Decision (hx) 12/14/2020 AD SMALL DIRECTIVE Health Care Decision (hx) 12/14/2020 AD SMALL DIRECTIVE Health Care Decision (hx) 12/14/2020 AD SMALL DIRECTIVE Health Care Decision (hx) 12/14/2020 AD SMALL DIRECTIVE Health Care Decision (hx) 12/14/2020 AD SMALL DIRECTIVE Health Care Decision (hx) 12/14/2020 AD SMALL DIRECTIVE Health Care Decision (hx) 12/14/2020 AD SMALL DIRECTIVE Health Care Decision (hx) 12/14/2020 AD SMALL DIRECTIVE Health Care Decision (hx) 12/14/2020 AD SMALL DIRECTIVE Health Care Decision (hx) 12/14/2020 AD SMALL DIRECTIVE Health Care Decision (hx) 12/14/2020 AD SMALL DIRECTIVE Health Care Decision (hx) 12/14/2020 AD SMALL DIRECTIVE Health Care Decision (hx) 12/14/2020 AD SMALL DIRECTIVE Health Care Decision (hx) 12/14/2020 AD SMALL DIRECTIVE Health Care Decision (hx) 12/14/2020 AD SMALL DIRECTIVE Care Teams 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
--- OUTSIDE RECORDS SUMMARY | 2024-11-18 12:31 | XMS_ITS | Clinical Summary ---
Author Organization [facility] Address [address] [place] [address] Care Team Providers Care Drill Press Operator Numerical Control Name Role Phone Sabrina Mauricio MD Primary Care Provider [phone] Allergies Active Allergy Reactions Criticality Noted Date [...] age to complete this topic Care Teams Drill Press Operator Numerical Control Relationship Specialty Start Date End Date Sabrina Mauricio MD PCP - General Internal Medicine 04/18/22
[2024-11-18 12:40] VITALS: BP 142/84; PULSE 66; O2SAT 99; BMI 30.8
== END 2024-11-18 13:01 | disposition home or self-care (01) ==
PROVIDERS: PCP Internal Medicine; Visit Provider Student in an Organized Health Care Education/Training Program
DX: M33.90 Dermatopolymyositis, unspecified, organ involvement unspecified (principal); M85.852 Other specified disorders of bone density and structure, left thigh; Z79.899 Other long term (current) drug therapy
CPT/HCPCS: 99214; G2211

== ENCOUNTER → 2024-11-18 11:55 | Outpatient (BNVA) | payer MEDICARE, SELFPAY | PROVIDERS: PCP Internal Medicine; Visit Provider Student in an Organized Health Care Education/Training Program | DX: M33.90 Dermatopolymyositis, unspecified, organ involvement unspecified (principal); M85.852 Other specified disorders of bone density and structure, left thigh; Z79.899 Other long term (current) drug therapy | CPT/HCPCS: 99212 ==

== ENCOUNTER 2025-02-19 07:38 | Outpatient (REF) | payer MEDICARE, SELFPAY ==
[2025-02-23 13:38] LABS: Aldolase 4.2 U/L (<=8.1)
== END 2025-02-19 07:39 | disposition home or self-care (01) ==
LOC: HO.LAB 07:38
PROVIDERS: PCP Internal Medicine; Visit Provider Student in an Organized Health Care Education/Training Program
DX: M33.90 Dermatopolymyositis, unspecified, organ involvement unspecified (principal)
CPT/HCPCS: 36415; 82085; 82550

== ENCOUNTER 2025-05-12 11:57 | Outpatient (REF) | payer MEDICARE, SELFPAY ==
[2025-05-12 17:34] LABS: MANUAL DIFF FLAG NO
[2025-05-12 17:42] LABS: Hematocrit 34.0 % (37.0-47.0); Hemoglobin 11.1 g/dl (12.0-16.0); Imm Gran Abs Auto 0.04 X10*3/uL (0.00-0.03); Imm Gran Pct Auto 0.6 % (0.0-0.4); Lymphocytes Absolute Auto 1.4 X10*3/uL (1.2-4.9); Mean Corpuscular HGB Conc 32.6 g/dl (31.0-35.0); Mean Corpuscular Hemoglobin 29.0 pg (27.0-33.0); Mean Corpuscular Volume 88.8 fL (80.0-98.0); NRBC Abs Auto 0.000 X10*3/uL (0.0-0.012); NRBC Pct Auto 0.0 /100WBC (0.0-0.2); Platelet Count 671 X10*3/uL (160-400); Red Blood Count 3.83 X10*6/uL (4.20-5.50); White Blood Count 7.1 X10*3/uL (4.8-10.8)
[2025-05-12 17:59] LABS: Alanine Aminotransferase 40 U/L (0-31); Albumin Level 4.3 g/dL (3.5-5.0); Alkaline Phosphatase 85 U/L (39-117); Anion Gap 12 (12-20); Aspartate Amino Transferase 55 U/L (5-31); Blood Urea Nitrogen 20 mg/dL (9-16); Calcium 9.3 mg/dL (8.4-10.2); Carbon Dioxide 26 mmol/L (22-29); Chloride 109 mmol/L (96-108); Estimated Glomerular Filt Rate > 60; Potassium 5.0 mmol/L (3.3-5.1); Sodium 142 mmol/L (135-145); Total Protein 8.2 g/dL (6.5-8.0)
== END 2025-05-12 11:58 | disposition home or self-care (01) ==
LOC: HO.HKASLDS 11:57
PROVIDERS: PCP Internal Medicine; Visit Provider Student in an Organized Health Care Education/Training Program
DX: M33.90 Dermatopolymyositis, unspecified, organ involvement unspecified (principal); M85.852 Other specified disorders of bone density and structure, left thigh; Z79.60 Long term (current) use of unspecified immunomodulators and immunosuppressants
CPT/HCPCS: 36415; 80053; 85025; 85652; 86140; 99212

== ENCOUNTER 2025-05-12 11:57 | Outpatient (AMB) | payer MEDICARE, SELFPAY ==
--- NOTE | 2025-05-12 12:37 | MHC.OFFVIS ---
Vital Signs 05/12/25 12:43 Height 5 ft 5 in Weight 188 lb 0.869 oz BMI 31.3 BP 130/82 Blood Pressure Location Lt brachial Position Sitting Pulse 67 Pulse Source Pulse Oximeter Pulse Oximetry (%) 98 Oxygen Delivery Method Room Air Intake Visit Reasons: DM follow up Intake Note: Patient presents for Dermatomyositis follow up. Allergies azathioprine Adverse Reaction (Intermediate, Verified 05/12/25 12:42) Unknown ciprofloxacin (From Cipro HC) Adverse Reaction (Intermediate, Verified 05/12/25 12:42) N/V doxycycline Adverse Reaction (Intermediate, Verified 05/12/25 12:42) Gastrointestinal Upset hydrocortisone (From Cipro HC) Adverse Reaction (Intermediate, Verified 05/12/25 12:42) N/V mycophenolate mofetil (From CellCept) Adverse Reaction (Intermediate, Verified 05/12/25 12:42) Rash Penicillins Adverse Reaction (Intermediate, Verified 05/12/25 12:42) Rash sulfamethoxazole (From Bactrim) Adverse Reaction (Verified 05/12/25 12:42) N/V trimethoprim (From Bactrim) Adverse Reaction (Verified 05/12/25 12:42) N/V Medication List - Last Reconciled 05/12/25 by Christie Velasco MD acetaminophen (Tylenol Extra Strength) 500 mg PO Q6H PRN acetaminophen 650 mg (2 x 325 mg) PO ONCE PRN atenolol 75 mg PO DAILY calcium carbonate (Calcium 600) 1,200 mg PO DAILY clindamycin HCl 150 mg PO QID diphenhydramine HCl (Allergy Relief (diphenhydramine)) 50 mg (2 x 25 mg) PO ONCE PRN hydrochlorothiazide 25 mg PO DAILY immun glob G(IgG)-gly-IgA ov50 10 % (Gammagard Liquid) Give 40 g IV daily x 2 and then repeat every 5 weeks. 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 Currently undergoing surveillance - Having a lot of GI issues which are currently being evaluated Rheumatologic History: Onset 09/2016; prox muscles weak, skin rashes, abnormal nailfold, 09/2017. HATTIE positive; anti-MO-2 positive. EMG positive for myopathy Negative anti DNA, anti-TONY, Sjogren antibodies Prednisone started 02/14; azathioprine added in 03/17 Azathioprine held due to oral ulcers 04/16 CPK normalized, 04/16 MMF not tolerated 08/17 MTX started 09/16 -partial response, still requiring ~ 15-20 mg prednisone. IVI/19, 04/17, 05/18, 06/18:07/18, 50 gm daily X 3) 08/18, 09/17(50 gm daily X 2) and every 30 days MTX held due to LFT elevations - 02/16 - monthly IVIG continued December 2020: IVIG held because she had an abdominal abscess. Subsequent rise in CPK to greater than 9000 and return of weakness. January 2021: IVIG restarted as well as prednisone IVIG 40 gm X2 2 days Q4 WEEKS, spaced out to 40 gmX2 days Q5 weeks Current Rheumatology Medication(s): IVIG 40g x 2 for 2 days every 5 weeks [facility] Medical History Allergic rhinitis GERD (gastroesophageal reflux disease) Hypertension Hyperlipidemia Varicose veins of both lower extremities DJD (degenerative joint disease) Anxiety Depression Dermatomyositis Primary open angle glaucoma of both eyes Obesity penitentiary current use of immunosuppressive drug Diverticulitis Surgical History History of total knee replacement (TKR) H/O nasal septoplasty History of partial surgical removal of colon H/O tubal ligation H/O: hysterectomy History of tonsillectomy H/O colonoscopy Family History Mother Arthritis Hypertension Elevated cholesterol Brother Elevated cholesterol Myelofibrosis Diabetes Father Stomach cancer Maternal Aunt Gynecologic cancer Social History Household Members: Spouse and Children Alcohol intake: current Alcohol intake frequency: holidays/special occasions only Patient Tobacco Use Status: Former Tobacco user Current occupational status: employed 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 Review of Systems Const Details: Review of Systems Constitutional: Denies fever, chills, weight loss ENT: Denies vision changes, eye pain or eye redness, dental caries, dry mouth Pulm: Denies SOB, MENDOZA, hemoptysis, wheezing Cards: Denies chest pain, palpitations Skin: Denies Raynaud's, rash, nail changes, photosensitivity, LASER SPECIALIST: Denies headaches, weakness, paresthesias, recurrent falls MSK: as per HPI All other systems reviewed and are unremarkable except noted above Physical Exam Exam Exam: Vital signs reviewed Physical Examination CONSTITUITIONAL Patient alert and cooperative. Well appearing and in no apparent painful distress HEENT Conjunctiva and sclera clear. No lymphadenopathy. CHEST/RESPIRATORY SYSTEM Normal respiratory effort and able to speak in complete sentences. Clear to auscultation bilaterally. No crackles, rales, rhonchi, wheezes heard. CARDIAC SYSTEM Regular rate and rhythm. S1 and S2 heard no murmurs. Radial pulses intact bilaterally MSK Hands Right Hand: Able to make a fist. No swelling or tenderness to palpation of these joints. Left Hand: Able to make a fist. No swelling or tenderness to palpation of these joints. Herbedens nodes noted bilaterally Wrists Right Wrist: Full ROM. 70 degrees of wrist flexion, 80 degrees of wrist extension. No swelling or TTP Left Wrist: Full ROM. 70 degrees of wrist flexion, 80 degrees of wrist extension. No swelling or TTP Elbows Right Elbow: Full ROM. No swelling or TTP. No TTP of the medial and lateral epicondyles Left Elbow: Full ROM. No swelling or TTP. No TTP of the medial and lateral epicondyles Shoulders Right shoulder: Full ROM. No swelling noted. No TTP of the AC joint, subacromial bursa or posterior shoulder Left shoulder: Full ROM. No swelling noted. No TTP of the AC joint, subacromial bursa or posterior shoulder Knees Right knee: Full ROM. No swelling noted. No TTP of the knee joint lie or pes anserine bursa Left knee: Full ROM. No swelling noted. No TTP of the knee joint lie or pes anserine bursa. Bilateral surgical scars noted Ankles Right ankle: Good ankle dorsiflexion and plantar flexion. No swelling. No TTP of the ankle joint Left ankle: Good ankle dorsiflexion and plantar flexion. No swelling. No TTP of the ankle joint Feet Right foot: Negative squeeze test Left foot: Negative squeeze test Tender points? No tenderness to palpation of the bilateral trapezius, supraspinatus, anterior costochondral junctions, bilateral suboccipital muscle insertions SKIN No rashes Right Left Neck 5 Mri Special Procedures Technologist strength 5 5 Wrist flexion 5 5 Wrist extension 5 5 Elbow extension 5 5 Elbow flexion 5 5 Shoulder abduction 5 5 Shoulder adduction 5 5 Hip flexion 5 5 Knee extension 5 5 Knee flexion 5 5 Ankle dorsiflexion 5 5 Ankle plantar flexion 5 5 Vital Signs: Last Vital Signs Pulse 67 05/12/25 12:43 BP 130/82 05/12/25 12:43 Pulse Ox 98 05/12/25 12:43 Oxygen Delivery Method Room Air 05/12/25 12:43 BMI result Body Mass Index 31.3 Results Reviewed Results Reviewed: Laboratory Tests 08/14/24 11/17/24 02/19/25 08:12 08:57 07:55 WBC 8.2 RBC 4.07 L Hgb 11.8 L Hct 35.9 L Plt Count 620 H ESR 53 H 17 Sodium 143 Potassium 4.0 Chloride 107 Carbon Dioxide 25 BUN 18 H Creatinine 0.82 AST 28 ALT 24 Total Creatine Kinase 73 113 C-Reactive Protein 0.18 Aldolase 4.2 Assessment & Plan Assessment & Plan (1) Dermatomyositis: Comment: onset 09/2016; prox muscles weak, skin rashes, abnormal nailfold, 09/2017. HATTIE positive; anti-MO-2 positive. EMG positive for myopathy Negative anti DNA, anti-TONY, Sjogren antibodies Prednisone started 02/14; azathioprine added in 03/17 Azathioprine held due to oral ulcers 04/16 CPK normalized, 04/16 MMF not tolerated 08/17 MTX started 09/16 -partial response, still requiring ~ 15-20 mg prednisone. IVI/19, 04/17, 05/18, 06/18:07/18, 50 gm daily X 3) 08/18, 09/17(50 gm daily X 2) and every 30 days MTX held due to LFT elevations - 02/16 - monthly IVIG continued December 2020: IVIG held because she had an abdominal abscess. Subsequent rise in CPK to greater than 9000 and return of weakness. 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 Mi 2 antibodies are very favorable dermatomyositis antibodies and are not associated with malignancy or ILD She is currently in remission on her IVIG dosage every 5 weeks. We will continue the every 5 week dosage for now. Plan - IVIG 40g x 2 doses every 5 weeks - RTC 6 months - Labs before visit: CBC, CMP, ESR, CRP, CK, aldolase (2) Osteopenia: Comment: DEXA 08/2023 left hip T-score -1.2. Low FRAX score Code(s): M85.80 - Other specified disorders of bone density and structure, unspecified site Category: Medical Qualifiers: Osteopenia location: hip Laterality: left Qualified Code(s): M85.852 - Other specified disorders of bone density and structure, left thigh Plan: #Osteopenia Patient with osteopenia based on left hip T-score with a low FRAX score. Order new DEXA for 08/2025 Plan - DEXA scan 08/2025 - Ensure vit D and Ca supplementation (3) penitentiary current use of immunosuppressive drug: Code(s): Z79.899 - Other manager terminal (current) drug therapy Category: Medical Plan: #Long-term use of IVIG Discussed with this patient the risks and benefits of IVIG use to the management of the rheumatic condition Benefits include improved disease control and maintenance of remission Risks include anaphylaxis, blood clots, transfusion related acute lung injury, hemolytic reaction, fluid overload, heart problems Plan I spent 30 minutes reviewing the record and labs, taking a history, examining the patient, discussing the treatment plan and documenting in the medical record Orders: Orders Comprehensive Met. Panel 6 Months M33.90 - Dermatopolymyositis, unspecified, organ involvement unspecified C Reactive Protein 6 Months M33.90 - Dermatopolymyositis, unspecified, organ involvement unspecified Aldolase 6 Months M33.90 - Dermatopolymyositis, unspecified, organ involvement unspecified XR DEXA axial skeleton 08/31/25 M81.0 - Age-related osteoporosis without current pathological fracture Complete Blood Count Auto Diff 6 Months M33.90 - Dermatopolymyositis, unspecified, organ involvement unspecified Creatine Kinase Total 6 Months M33.90 - Dermatopolymyositis, unspecified, organ involvement unspecified Erythrocyte Sedimentation Rate 6 Months M3. - Dermatopolymyositis, unspecified, organ involvement unspecified Coding Level of Care Code Est Pt Level 4 (34938) Complex EM visit Add On G2211 Diagnoses Dermatomyositis M33 Osteopenia of left hip M85.852 Osteopenia location: hip Laterality: left manager terminal current use of immunosuppressive drug Z79.899
[2025-05-12 12:43] VITALS: BP 130/82; PULSE 67; O2SAT 98; BMI 31.3
--- OUTSIDE RECORDS SUMMARY | 2025-05-12 12:47 | XMS_ITS | Clinical Summary ---
Author Organization [facility] [place] [address] Phone Care Team Providers Care Coatings Inspector Name Role Phone Sabrina Mauricio MD Primary Care Provider [phone] Allergies Active Allergy Reactions Criticality Noted Date Comments Azathioprine Medium 01/16/2019 Other Reaction(s): OTHER, Other (See Comments) Itching and or sores in mouth ,pt unsure whichh reaction Ciprofloxacin Nausea And Vomiting Medium 04/25/2022 Doxycycline 04/01/2024 Mycophenolate Mofetil Rash 09/17/2018 Other Reaction(s): Rash/Dermatitis Nickel Unknown 11/24/2024 Ceramic implants for bilateral knee replacement Penicillins Hives Medium 09/25/2005 Other Reaction(s): Rash/Dermatitis Sulfamethoxazole-Trimet hoprim Nausea And Vomiting,Nausea Only Medium 09/19/2014 Medications acetaminophen (TYLENOL) 325 mg tablet Take 2 tablets (650 mg total) by mouth. 7 Active atenoloL (TENORMIN) 50 mg tablet Take 1.5 tablets (75 mg total) by mouth 1 (one) time each day. 6 Active glycerin (adult) suppository Insert 1 suppository [...] (20 mg total) by mouth. 2 Active calcium citrate/vitamin D3 (CALCIUM CITRATE + D ORAL) Take by mouth. Activ e rosuvastatin (CRESTOR) 10 mg tablet Take 1 tablet (10 mg total) by mouth 1 (one) time each day. 90 tablet 1 5 Active plecanatide (Trulance) 3 mg tablet Take 1 tablet (3 mg total) by mouth 1 (one) time each day. Active tobramycin (TOBREX) 0.3 % ophthalmic solution 5 Active ketorolac (ACULAR) 0.5 % ophthalmic solution 5 Active senna-docusate (PERICOLACE) 8.6-50 mg per tablet Take 1 tablet by mouth 3 (three) times a day if needed for constipation. 90 each 3 5 04/28/20 26 Active prucalopride 2 mg tablet Take 1 tablet by mouth 1 (one) time each day. 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 Badillo is a 69 year old female who had a robotic right middle lobe wedge resection on November 24, 2024. Patient appears to be healing very well after surgery. Her pain is well controlled without use of narcotics. CXR today shows no significant pneumothorax, pleural effusion, or infiltrate. 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 The slides were sent for expert consultation at [facility] in [place] which have not been received back as of yet, therefore I am unsure of the exact pathologic results as of this time. This was discussed at length with the patient. I educated her that based on the preliminary pathology results it is felt to be either a carcinoid tumorlet versus carcinoid tumor. I confirmed with pathologist that the margins were in fact negative and the lymph nodes were uninvolved with malignancy. Even if expert opinion returns positive for carcinoid tumor given the negative margins is unlikely that she will need further resection and ongoing surveillance would be needed only. Microbiology negative from nodule for any organism thus far, therefore antibiotics not required. Fungal negative so far, but can take several weeks to return as final. Patient has no symptoms of infection. I will be calling the patient with the updated pathology results once I receive them and give her the plan going forward. History of diverticulitis 07/16/2024 Overview (07/16/2024): 2019 - hospitalized at [facility] 07/19 with abscess and perforation; fistula to the bladder 11/20 Left hemicolectomy, fistula repair, and abscess drainage Constipation 03/05/2024 Thrombocytosis 03/05/2024 Osteopenia 09/11/2023 Overview (07/16/2024): 09/21 T score spine +0.5 hip -1.2 FRAX score 13% 10 year fracture risk Obesity (BMI 30.0-34.9) 09/07/2019 Primary open angle glaucoma (POAG) of both eyes 07/15/2018 Dermatomyositis ([facility] V24, CMS/HCC V28) 02/25 Overview (07/16/2024): Skin rash onset 09/2016; muscles weak 09/2017. HATTIE positive; anti-RI-2 positive. EMG positive for myopathy Negative anti [...] gland removal 02/08/2011 Overview (07/16/2024): S/p resection 2008 Varicose veins of both lower extremities 008 Overview (12/07/2024): Hypertension 05/27/2006 Hyperlipidemia 05/27/2006 GERD (gastroesophageal reflux disease) 6 Allergic rhinitis 03/28/2006 Resolved Problems Problem Noted Date Diagnosed Date Resolved Date Mass of middle lobe of right lung 03/13/2024 11/25/2024 Assessment & Plan (11/05/2024 11:00 AM EST): [...] wedge possible lobectomy. All questions were answered. Encounters Date Type Department Care Team Description 04/29/2025 8:22 AM EDT - 04/29/2025 11:59 PM EDT Hospital Encounter [facility] Xray [address] [place] [phone] Chronic constipation; Abdominal bloating Discharge Disposition: Home or Self Care 04/28/2025 9:50 AM EDT Office Visit Gastroenterology - [place] [address] [facility] [address] [place] [phone] Velia Sesay PA Chronic constipation (Primary Dx); Abdominal bloating; Pelvic floor dysfunction in female 04/28/2025 Telephone Gastroenterology [facility] [address] [facility] [address] [facility] [address] [place] [phone] Velia Sesay PA PRIOR AUTHORIZATION 04/28/2025 Telephone Gastroenterology [facility] [address] [facility] 175 [facility] [address] [place] [phone] Velia Sesay PA 03/01/2025 9:45 AM EDT Office Visit Pulmonolgy - [place] [address] [facility] [address] [place] [phone] Sandra Person NP Mass of middle lobe of right lung (Primary Dx); Lung nodules; Thoracic lymphadenopathy; Obesity (BMI 30.0-34.9) 02/18/2025 Telephone Endocrinology - [place] [phone] Carlotta Garduno MA Lab work for TSH reminder (Patient went to [facility] to get lab work done and there was no order at the [place] lab so I call the patient and let her know that she need to get her lab work done in [place] lab because the orders is in the system.) 02/18/2025 Telephone Endocrinology - [place] [phone] Carlotta Garduno MA 02/18/2025 Telephone Endocrinology - [place] [phone] Carlotta Garduno MA 02/18/2025 Telephone Endocrinology - [address] [phone] Lo Humphries MD Labs Only from Last 3 Months Immunizations Name Administration [...] Surgical History Surgery Date Site/Laterality Comments HYSTERECTOMY TUBAL LIGATION TONSILLECTOMY NASAL SEPTUM SURGERY 2002 COLONOSCOPY 2007 small tubular adenomas x 2 COLONOSCOPY 2012 small polyp at 15 cm: Tubular adenoma. TOTAL KNEE ARTHROPLASTY 12/14; 02/13 Bilateral COLONOSCOPY 06/27/2018 : Diverticulosis; no polyps. BREAST BIOPSY 2003ish Left neg OTHER SURGICAL HISTORY 11/15/2020 Left Laparoscopic left colectomy with mobilization of splenic flexure, I&D of peritoneal abscess, repair of colovesical fistula - by Dr. Mathew Alvarez to address diverticulitis complicated by perforation and intra-abdominal abscess near dome of bladder as wel [facility] tumor removal LUNG SURGERY 11/24/2024 right lung wedge resection, lung nodule Medical History Medical History Date Comments Hypertension Dermatomyositis (CMS/HCC V24 , CMS/HCC V28) High cholesterol Allergic rhinitis, cause unspecified Heartburn Anemia, unspecified Essential hypertension, benign Tubular adenoma 03/05/2012 DJD (degenerative joint disease) of knee 01/15/20 14 Total knee replacement status 02/06/2017 Le ft TKR 12/14 Diverticulitis 08/30/202007/19 with absce ss Osteopenia 09/11/202309/21 T score sp ine +0.5 hip -1.2 FRAX score 13% 10 year fracture risk Glaucoma Cataract bilateral Family History Medical History Relation Name Comments Other: insurance commissioner cancer Aunt at age 99 Hyperlipidemia Brother 1 hypertension, myelofibrosis Other: hit by train Brother 2 24 Diabetes Brother 3 Stomach cancer Father Arthritis Mother hypertension, e levated cholesterol, TIA Breast cancer Neg Hx Colon cancer Neg Hx Prostate cancer Neg Hx Relation Name Status Comments Aunt Brother 1 Brother 2 Brother 3 Father Mother Social History Tobacco Use Types Packs/Day Years Used Date Smoking Tobacco: Former Cigarettes 0.5 19.3 0 09/30/1979 - 01/29/2000 Smokeless Tobacco: Never Tobacco Cessation:Counseling Given: Not Answered Alcohol Use Standard Drinks/Week Comments Yes 0 (1 standard drink = 0.6 oz pur e alcohol) rarely Housing Instability Answer Date Recorde d Are you worried that in the next 2 months you may not have stable housing? No 11/24/2024 Food Access & Nutrition Answer Date Rec orded Do you have access to a vari ety of food including fruits and vegetables? Yes 11/24/2024 Health Literacy Answer Date Recorded How often do you need to hav e someone help you when you read instructions, pamphlets, or other written material from your doctor or pharmacy? Never 11/24/2024 Caregiver: How often do you need to have someone help you when you read instructions, pamphlets, or other written material from your doctor or pharmacy? Not on file 11/24/2024 Financial Risk Answer Date Recorded How hard is it for you to pa y for the very basics like food, housing, medical care, and air conditioning / heating? Not very hard 11/24/2024 Transportation Answer Date Recorded Has the lack of transportati on kept you from meetings, work, or from getting things needed for daily living? No Has the lack of transportati on kept you from medical appointments or from getting medications? No 11/24/2024 Social Isolation Answer Date Recorded How often do you feel lonely or isolated from th ose around you? Never 11/24/2024 Food Risk Answer Date Recorded Within the past 12 months we worried whether our food would run out before we got money to buy more. Never true 11/24/2024 Within the past 12 months th e food we bought just didn't last and we didn't have money to get more. Never true 11/24/2024 Dependent Care Answer Date Recorded Do you need help finding or paying for care for your loved ones. For example, childcare center director or elderly care for an older adult? No 11/24/2024 Education Answer Date Recorded Do you think completing more education or training, like finishing a GED, going to college, or learning a trade, would be helpful for you? No 11/24/2024 Employment and Income Answer Date Recor ded During the last four weeks, have you been actively looking for work? No 11/24/2024 Living Situation Answer Date Recorded What is your living situation? 0 11/24/2024 Interpersonal Safety Answer Date Record ed Physical Abuse 11/24/2024 Verbal Abuse 11/24/2024 Comments No Sex and Gender Information Value [...] Sign Reading Time Taken Comments Blood Pressure 138/76 04/28/2025 9:44 AM EDT Pulse 78 04/28/2025 9:44 AM EDT Temperature 35.7 C (96.2 F) 03/01/2025 9:18 AM EDT Respiratory Rate 14 03/01/2025 9:18 AM EDT Oxygen Saturation 97% 04/28/2025 9:44 AM EDT Inhaled Oxygen Concentration - - Weight 86.2 kg (190 lb) 04/28/2025 9:44 AM EDT Height 165.1 cm (5' 5 ) 04/28/2025 9:44 AM EDT Body Mass Index 31.62 04/28/2025 9:44 AM EDT Plan of Treatment Upcoming Encounters Date Type Department Care Team (Late st Contact Info) Description 05/28/2025 8:[address] [facility] Scan [address] [place] [phone] 06/18/2025 2:[address] [facility] Scan [address] [place] [phone] 06/24/2025 10:45 AM EDT Office Visit Thoracic Surgery - [place] [address] [facility] [address] [place] [phone] Elizabeth Martinez PA [address] [facility], [address] [place] [address] 07/08/2025 8:[address] [facility] Nuclear Medicine [address] [place] [phone] 08/05/2025 1:20 PM EST Office Visit Gastroenterology - [place] [address] [facility] [address] [facility] [address] [place] [phone] Velia Sesay PA [address] [facility] [address] [place] [address] Health Maintenance Due Date Last Done Comments Zoster Vaccines (1 of 2) 2007 Hepatitis C Screening 09/08/2022 Medicare Annual Wellness Visit 09/08/2022 Pneumococcal Vaccine: 50+ Years (3 of 3 - PCV20 or PCV21) 11/12/2023 11/12/2018, 03/31/2018 COVID-19 Vaccine (3 - season) 2024 12/01/2020, 10/27/2020 Depression Screening 09/30/2024 Influenza Vaccine (#1) 2025 , 08/11/2021, 08/11/2021, Additional history exists Social Influencers of Health Screening 11/24/2025 11/24/2024 Falls Risk Assessment 11/25/2025 11/25/2024, 024 Hypertension/CHF/CAD Annual BMP Blood Test 11/25/2025 11/25/2024, 11/24/2024, 11/17/2024, Additional history exists Breast Cancer Screening 10/05/2026 10/05/19, 09/27/2023, 09/11/2022, Additional history exists DTaP,Tdap,and Td Vaccines (3 - Td or Tdap) 03/31/2028 03/31/2018, 05/12/2008 Colorectal Cancer Screening: Colonoscopy 04/06/2029 04/06/2024 Cholesterol Screening (Lipid Panel) 01/18/2030 01/18/2025, 07/10/2023 RSV Immunization Adult Patients (1 - 1-dose 75+ series) 02/29/2032 Osteoporosis [...] age to complete this topic Meningococcal B Vaccine Aged Out No l onger eligible based on patient's age to complete this topic RSV Immunization Patients Under 20 months Aged Out No longer eligible based on patient's age to complete this topic Varicella Vaccines Aged Out No longer eligible based on patient's age to complete this topic Medical Devices Implanted Type Area Executive Wellness Programs Director Device Identifier Shelf Expiration Date Model / Serial / Lot Joints Knee Joints Knee Left: Knee Joints Knee Joints Knee Right: Knee Procedures Procedure Name Priority Date/Time Associated Diagnosis Comments XR ABDOMEN 1 VIEW Routine 04/29/2025 8:3 8 AM EDT Chronic constipation Abdominal bloating THYROXINE FREE Routine 02/24/2025 9:00 AM EDT Empty sella ([facility] V24) THYROID STIMULATING HORMONE Routine 02/24/2025 9:00 AM EDT Empty sella ([facility] V24) INSULIN-LIKE GROWTH FACTOR Routine 02/24/2025 9:00 AM EDT Empty sella ([facility] V24) LUTEINIZING HORMONE Routine 02/24/2025 9 :00 AM EDT Empty sella ([facility] V24) FOLLICLE STIMULATING HORMONE Routine 02/24/2025 9:00 AM EDT Empty sella ([facility] V24) PROLACTIN Routine 02/24/2025 9:00 AM EDT Empty sella ([facility] V24) CORTISOL Routine 02/24/2025 9:00 AM EDT Empty sella ([facility] V24) ACTH Routine 02/24/2025 9:00 AM EDT Empty sella ([facility] V24) LIPID PANEL WITH REFLEX TO DIRECT LDL Routine 01/18/2025 10:12 AM EDT Other hyperlipidemia BASIC METABOLIC PANEL Routine 11/25/2024 6:14 AM EST MG MAMMO DIGITAL SCREENING W HUMBERTO BILAT Routine 10/05/2024 9:38 AM EST Encounter for screening mammogram for breast cancer DXA BONE DENSITY STUDY 1+ SITS AXIAL SKEL Routine 09/11/2023 10:14 AM EST Unspecified menopausal and perimenopausal disorder from Last 3 Months or Most Recently Relevant to Health Maintenance Results * XR Abdomen 1 View (04/29/2025 8:38 AM EDT) Anatomical Region Laterality Modality Body Radiographic Hayley ging 04/29/2025 8:41 AM EDT Impressions 04/29/2025 8:42 AM EDT Nonobstructive bowel gas pattern. There is no radiographic evidence of constipation as questioned clinically. The patient is seen to have undergone previous pelvic surgery. Code 96056 -------- FINAL REPORT -------- Dictated By: Pito Ronquillo Dictated Date: 04/29/2025 08:41 ET Assigned Physician: Pito Ronquillo Reviewed and Electronically Signed By: Pito Ronquillo Signed Date: 04/29/2025 08:42 ET Workstation ID: [id number] Transcribed By: Self Edit Transcribed Date: 04/29/2025 08:41 ET Narrative 04/29/2025 8:42 AM EDT HISTORY: The patient is a 70-year-old female with constipation and abdominal bloating. FINDINGS: Supine radiographs of the abdomen demonstrate surgical sutures in the pelvis. There are degenerative changes of the lumbar spine. The bowel gas pattern is nonobstructive. The volume of fecal material is not unusually increased. No mass or radiopaque calculus is seen. Procedure Note Pito Ronquillo MD - 04/29/2025 HISTORY: The patient is a 70-year-old female with constipation andabdominal bloating. FINDINGS: Supine radiographs of the abdomen demonstrate surgical suturesin the pelvis. There are degenerative changes of the lumbar spine. Thebowel gas pattern is nonobstructive. The volume of fecal material is notunusually increased. No mass or radiopaque calculus is seen. IMPRESSION: Nonobstructive bowel gas pattern. There is no radiographic evidence ofconstipation as questioned clinically. The patient is seen to haveundergone previous pelvic surgery. Code 62918 -------- FINAL REPORT -------- Dictated By: Pito Ronquillo Dictated Date: 04/29/2025 08:41 ET Assigned Physician: Pito Ronquillo Reviewed and Electronically Signed By: Pito Ronquillo Signed Date: 04/29/2025 08:42 ET Workstation ID: [id number] Transcribed By: Self Edit Transcribed Date: 04/29/2025 08:41 ET us Velia SARKAR IMG XR PROCEDURES Final Resul t * Prolactin (02/24/2025 9:00 AM EDT) Prolactin 6.30 See Comment ng/mL LAB CHEMISTRY METHOD 02/24/2025 10:[address] [facility] Comment: Prolactin Reference Ranges (ng/mL) Non 2.2 - 30.3 8.1 - 347.6 Postmenopausal 0.7 - 31.5 Blood Venous blood specimen / Unknown Venipuncture / Unknown 02/24/2025 9:00 AM EDT 02/24/2025 9:44 AM EDT us Lo Humphries MD LAB BLOOD ORDERABLES Final Resul t [facility] [address] [place] [address], [place] [phone] * Insulin-like growth factor (02/24/2025 9:00 AM EDT) Insulin-like Growth Factor 1 128 52 - 196 ng/mL 02/26/2025 3:45 PM EDT [facility] Comment: Test performed at [facility], [address] , [place] [address] Denia Herrera MD, PhD - Blogs Manager Blood Venous blood specimen / Unknown Venipuncture / Unknown 02/24/2025 9:00 AM EDT 02/24/2025 9:44 AM EDT us Lo Humphries MD LAB BLOOD ORDERABLES Final Resul t [facility] [address] [place] [address] * ACTH (02/24/2025 9:00 AM EDT) Adrenocorticotropic Hormone (ACTH) 15 <=46 pg/mL 02/26/2025 3:03 PM EDT [facility] Comment: Test performed at [facility], [address] , [place] [address] Denia Herrera MD, PhD - Blogs Manager Blood Venous blood specimen / Unknown Venipuncture / Unknown 02/24/2025 9:00 AM EDT 02/24/2025 9:43 AM EDT us Lo Humphries MD LAB BLOOD ORDERABLES Final Resul [place] [place] [address] * Thyroid stimulating hormone (02/24/2025 9:00 AM EDT) TSH 1.57 0.40 - 4.00 mcIU/mL LAB CHEMISTRY METHOD 02/24/2025 11:[address] [facility] Blood Venous blood specimen / Unknown Venipuncture / Unknown 02/24/2025 9:00 AM EDT 02/24/2025 9:44 AM EDT us Lo Humphries MD LAB BLOOD ORDERABLES Final Resul t Performing Organization Address [facility] Co de Phone Number [facility] [address] [place] [address], [place] [phone] * Thyroxine free (02/24/2025 9:00 AM EDT) Pathologist [facility] Free T4 1.07 0.70 - 1.80 ng/dL LAB CHEMISTRY METHOD 02/24/2025 11:[address] [facility] Blood Venous blood specimen / Unknown Venipuncture / Unknown 02/24/2025 9:00 AM EDT 02/24/2025 9:44 AM EDT us Lo Humphries MD LAB BLOOD ORDERABLES Final Resul t Performing Organization Address City/[facility]/ZIP Co de Phone Number [facility] [address] [place] [address], [place] [phone] * Luteinizing hormone (02/24/2025 9:00 AM EDT) Luteinizing Hormone 29.7 See Comment mIU/mL LAB CHEMISTRY METHOD 02/24/2025 10:[address] [facility] Blood Venous blood specimen / Unknown Venipuncture / Unknown 02/24/2025 9:00 AM EDT 02/24/2025 9:[address] [facility] - 02/24/2025 10:48 AM EDT LH REFERENCE RANGES (MIU/ML) FEMALES NORMALLY MENSTRUATING: FOLLICULAR PHASE 1.9 - 12.8 MIDCYCLE PEAK 22.8 - 76.1 LUTEAL PHASE 0.6 - 13.5 POSTMENOPAUSAL: ON HRT 1.1 - 52.4 UNTREATED 8.6 - 61.8 us Lo Humphries MD LAB BLOOD ORDERABLES Final Resul t Performing Organization Address [facility] de Phone Number [facility] [address] [place] [address], * Follicle stimulating hormone (02/24/2025 9:00 AM EDT) Follicle Stimulating Hormone 72.7 See Comment mIU/mL LAB CHEMISTRY METHOD 02/24/2025 2:[address] [facility] Comment: FSH REFERENCE RANGES (MIU/ML) FEMALES NORMALLY MENSTRUATING: FOLLICULAR PHASE 2.3 - 12.6 MIDCYCLE PEAK 5.2 - 17.5 LUTEAL PHASE 1.7 - 9.5 POSTMENOPAUSAL: ON HRT 5.9 - 72.8 UNTREATED 12.7 - 132.2 Blood Venous blood specimen / Unknown Venipuncture / Unknown 02/24/2025 9:00 AM EDT 02/24/2025 9:44 AM EDT us Lo Humphries MD LAB BLOOD ORDERABLES Final Resul t Performing Organization Address [facility]/ZIP Co de Phone Number [facility] [address] [place] [address], * Cortisol (02/24/2025 9:00 AM EDT) Cortisol 11.0 mcg/dL LAB CHEMISTRY METHOD 02/24/2025 11:[address] [facility] Blood Venous blood specimen / Unknown Venipuncture / Unknown 02/24/2025 9:00 AM EDT 02/24/2025 9:[address] [facility] - 02/24/2025 11:14 AM EDT CORTISOL REFERENCE RANGE 8 AM SPEC: 5.0-23.0 mcg/dL 4 PM SPEC: 3.0-16.0 mcg/dL 8 PM SPEC: <5.0 mcg/dL us Lo Humphries MD LAB BLOOD ORDERABLES Final Resul t [facility] [address] [place] [address], [place] [phone] * (ABNORMAL) Lipid panel with reflex to direct LDL (01/18/2025 10:12 AM EDT) Cholesterol 177 0 - 200 mg/dL LAB CHEMISTRY METHOD 01/18/2025 4:[address] [facility] Triglycerides 176(H) 0 - 150 mg/dL LAB CHEMISTRY METHOD 01/18/2025 4:[address] [facility] HDL 50 >=40 mg/dL LAB CHEMISTRY METHOD 01/18/2025 4:[address] [facility] LDL Calculated 92 0 - 100 mg/dL LAB CHEMISTRY METHOD 01/18/2025 4:[address] [facility] VLDL Cholesterol Shaquille 35.2 mg/dL LAB CHEMISTRY METHOD 01/18/2025 4:[address] [facility] Non HDL Chol. (LDL+VLDL) 127 <145 mg/dL LAB CHEMISTRY METHOD 01/18/2025 4:[address] [facility] Chol/HDL Ratio 3.5 0.0 - 4.4 LAB CHEMISTRY METHOD 01/18/2025 4:[address] [facility] Blood Venous blood specimen / Unknown Venipuncture / Unknown 01/18/2025 10:12 AM EDT 01/18/2025 10:12 AM EDT us Sabrina Mauricio MD LAB BLOOD ORDERABLES Final Resul t [facility] [address] [place] [address], * (ABNORMAL) Basic metabolic panel (11/25/2024 6:14 AM EST) Sodium 136 133 - 145 mmol/L LAB CHEMISTRY METHOD 11/25/2024 7:[address] [facility] Potassium 4.9 3.5 - 5.5 mmol/L LAB CHEMISTRY METHOD 11/25/2024 7:39 AM [facility] Chloride 103 96 - 110 mmol/L LAB CHEMISTRY METHOD 11/25/2024 7:39 AM [facility] CO2 27 21 - 32 mmol/L LAB CHEMISTRY METHOD 11/25/2024 7:39 AM [facility] Anion Gap 6 3 - 11 LAB CHEMISTRY METHOD 11/25/2024 7:39 AM [facility] Glucose 121(H) 70 - 100 mg/dL LAB CHEMISTRY METHOD 11/25/2024 7:39 AM [facility] BUN 23 5 - 25 mg/dL LAB CHEMISTRY METHOD 11/25/2024 7:39 AM [facility] Creatinine 0.97 0.50 - 1.10 mg/dL LAB CHEMISTRY METHOD 11/25/2024 7:39 AM [facility] eGFR 64 >=60 mL/min/1. 73m2 LAB CHEMISTRY METHOD 11/25/2024 7:39 AM [facility] Comment:Calculation based on the Chronic Kidney Disease Epidemiology Collaboration (CKD-EPI) equation refit without adjustment for race. BUN/Creatinine Ratio 23.7 LAB CHEMISTRY METHOD 11/25/2024 7:[address] [facility] Calcium 9.2 8.5 - 10.5 mg/dL LAB CHEMISTRY METHOD 11/25/2024 7:[address] [facility] Blood Venous blood specimen / Unknown Venipuncture / Unknown 11/25/2024 6:14 AM EST 11/25/2024 6:56 AM EST us Maximino SARKAR LAB BLOOD ORDERABLES Fin al Result [facility] ([facility]) [facility] [address] [place] [address], [place] [phone] * MG Mammo Digital Screening w Humberto bilat (10/05/2024 9:38 AM EST) Anatomical Region Laterality Modality Breast Bilateral Mammography 10/05/2024 1:52 PM EST Impressions 10/05/2024 1:56 PM EST Benign. BI-RADS CATEGORY: 2 - BENIGN RECOMMENDATION: Screening bilateral mammogram is recommended in 1 year. Mammo Location: [facility], [address] [place] [address], [id number], . Screening -------- FINAL REPORT -------- Dictated By: Mignon Shaffer Dictated Date: 10/05/2024 13:52 ET Assigned Physician: Mignon Shaffer Reviewed and Electronically Signed By: Mignon Shaffer Signed Date: 10/05/2024 13:56 ET Workstation ID: [id number] Transcribed By: Self Edit Transcribed Date: 10/05/2024 13:52 ET Narrative 10/05/2024 1:56 PM EST CLINICAL: 69 years old, Female, routine annual exam. COMPARISON: Mammograms dating back to 08/03/2020 with most recent of 09/27/2023. TECHNIQUE: Bilateral MLO and CC views were obtained digitally with 3-D mammogram (digital breast tomosynthesis). Computer-aided detection was utilized in evaluation of this exam (CAD). FINDINGS: There is no evidence of suspicious mass or architectural distortion. No worrisome calcifications are evident. Focal asymmetries in the anterior right breast are stable. There has been no significant change from prior exam(s). BREAST DENSITY: B - There are scattered [...] is recommended in 1 year. Mammo Location: [facility], [address] [place] [address], [facility], . Screening -------- FINAL REPORT -------- Dictated By: Mignon Shaffer Dictated Date: 10/05/2024 13:52 ET Assigned Physician: Mignon Shaffer Reviewed and Electronically Signed By: Mignon Shaffer Signed Date: 10/05/2024 13:56 ET Workstation ID: [id number] Transcribed By: Self Edit Transcribed Date: 10/05/2024 13:52 ET us Sabrina Mauricio MD IMG BI PROCEDURES Final Result * DXA BONE DENSITY STUDY 1+ SITS AXIAL SKEL (09/11/2023 10:14 AM EST) Anatomical Region Laterality Modality Bone Densitometr y 09/26/2022 8:53 AM EST Narrative 09/11/2023 1:37 PM EST BONE DENSITY Lumbar Spine T-score is +0.5 (SD relative to 20-29 y/o adult) Z-score is +2.3 (SD relative to age matched peers) This is normal by criteria defined by the WHO. Left Hip T-score is -1.2 Z-score is +0.4 This is consistent with osteopenia by criteria defined by the WHO. Comparison exam(s): significant decrease in bone density of lumbar spine when compared to most recent bone density examination Confidence level is +/-95%. Impression: Based on the World Health Organization criteria, Dana Badillo should be classified as having osteopenia. This patient has a 13% risk of major osteoporotic fracture and a 1.3% risk of hip fracture over the next 10 years. (World Health Organization Fracture Risk Assessment) [facility] Department of Internal Medicine recommends using National [...] Based on the World Health Organization criteria, Daan Badillo should beclassified as having osteopenia. This patient has a 13% risk of majorosteoporotic fracture and a 1.3% risk of hip fracture over the next 10years. (World Health Organization Fracture Risk Assessment) [facility] Department of Internal Medicine recommendsusing National Osteoporosis [...] fracture risk by FRAX. Sabrina Mauricio MD [facility] [place] DXA PROCEDURES Final Result from Last 3 Months or Most Recently Relevant to Health [place] [phone] 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 Do not modify or discontinue any currently active code status orders. * Full Code - Default Date Activated Date Inactivated Comments 11/24/2024 7:08 AM 11/24/2024 10:55 AM This is ord er is used when code status has not been discussed with the patient, or code status is otherwise unknown/unconfirmed To update the patient's code status, place a code status order. Do not modify or discontinue any currently active code status orders. Care Teams Coatings Inspector Relationship Specialty Start Date End Date Sabrina Mauricio MD [address] [place] [id number] PCP - General 06/14/11
--- OUTSIDE RECORDS SUMMARY | 2025-05-12 12:47 | XMS_ITS | Clinical Summary ---
Author Organization [facility] Address [address] [place] [address] Care Team Providers Care Automat Watcher Name Role Phone Sabrina Mauricio MD Primary Care Provider Allergies Active Allergy Reactions Criticality Noted Date [...] 71 05/27/2024 11:24 AM EDT Temperature 36.9 C (98.4 F) 05/27/2024 11:24 AM EDT Respiratory Rate 16 02/06/2023 9:17 AM EDT [...] PCV20) 11/12/2023 11/12/2018, 03/31/2018 Influenza Vaccine (#1) 2025 3, 08/11/2021, 06/14/2020, Additional history exists RSV Adult > 60+ Yrs or (1 - 1-dose 75+ series) 02/29/2032 Hepatitis B Vaccines Aged Out No long er eligible based on patient's age to complete this topic RSV Ped < 20 months Aged Out No longe r eligible based on patient's age to complete this topic Care Teams Automat Watcher Relationship Specialty Start Date End Date Sabrina Mauricio MD PCP - General Internal Medicine 04/18/22
== END 2025-05-12 13:11 | disposition home or self-care (01) ==
LOC: HO.RHES 11:58
PROVIDERS: PCP Internal Medicine; Visit Provider Student in an Organized Health Care Education/Training Program
DX: M33.90 Dermatopolymyositis, unspecified, organ involvement unspecified (principal); M85.852 Other specified disorders of bone density and structure, left thigh; Z79.899 Other long term (current) drug therapy
CPT/HCPCS: 99214; G2211